=== PATIENT | male | born 1945 | race Caucasian/White ===

== ENCOUNTER 2017-08-18 23:16 | Emergency (ER) | payer MEDICARE, MEDICAID ==
[2017-08-19 01:26] VITALS: BP 121/68
--- NOTE | 2017-08-19 02:43 | ED ---
Shivani Redd Emily, scribed for Adonay Winslow MD on 08/18/17 at 2348 . Substance Abuse/Use - HPI Summary HPI Summary: This patient is a 20 year old F presenting to [facility] accompanied by friend with a chief complaint of LUQ abd pain radiating to left shoulder that began 2 days ago. The patient rates the pain 7/10 in severity. Symptoms aggravated by nothing. Symptoms alleviated by nothing. Patient reports SOB and slight cough. Patient denies fever and chills. - History Of Current Complaint Stated Complaint: ETOH Time Seen by Provider: 08/18/17 23:32 Hx Obtained From: Patient Ingestion History: Type/Name Of Drug - ETOH intoxication Overdose Characteristics: Oral Aggravating Factor(s): Nothing Alleviating Factor(s): Nothing - Allergies/Home Medications Allergies/Adverse Reactions: Allergies Allergy/AdvReac Type Severity Reaction Status Date / Time bupropion [From Wellbutrin] Allergy Unknown Verified 08/18/17 23:46 Reaction Details Home Medications: Home Medications Lisinopril 2.5 mg PO DAILY 08/18/17 [History Confirmed 08/19/17] Metformin HCl 500 mg PO BID 08/18/17 [History Confirmed 08/18/17] Incruse Ellipta 62.5 mcg NEB DAILY 08/19/17 [History Confirmed 08/19/17] PMH/Surg Hx/FS Hx/Imm Hx Previously Healthy: No Endocrine/Hematology History: Reports: Hx Diabetes - TYPE 2 Denies: Hx Anticoagulant Therapy, Hx Blood Disorders, Hx Blood Transfusions, Hx Bone Marrow Disease, Hx Systemic Lupus Erythematosus, Hx Sickle Cell Disease , Hx Thyroid Disease, Hx Anemia, Hx Unexplained Bleeding, Other Endocrine/ Hematological Disorders Cardiovascular History: Reports: Hx Hypercholesterolemia - DYSLIPIDEMIA, Hx Hypertension, Hx Syncope, 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/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 Denies: Hx Aneurysm, Hx Angina, Hx Angioplasty, Hx Auto Implanted Cardiovert Defib, Hx Cardiac Arrest, Hx Cardiomegaly, Hx Congenital Heart Disease, Hx Congestive Heart Failure, Hx Coronary Artery Disease, Hx Deep Vein Thrombosis, Hx Embolism, Hx Hypotension, Hx Pacemaker/ICD, Hx Peripheral Vascular Disease, Hx Rheumatic Fever, Hx Valvular Heart Disease GI History: Reports: Hx Gastroesophageal Reflux Disease, Other GI Disorders - CHRONIC CONSTIPATION Denies: Hx Cirrhosis, Hx Crohn's Disease, Hx Diverticulosis, Hx Gall Bladder Disease, Hx Gastrointestinal Bleed, Hx Hiatal Hernia, Hx Irritable Bowel, Hx Jaundice, Hx Obstructive Bowel, Hx Ileostomy, Hx Pyloric Stenosis, Hx Ulcer History: Reports: Hx Benign Prostatic Hyperplasia Denies: Hx Acute Renal Failure, Hx Chronic Renal Failure, Hx Dialysis, Hx Kidney Infection, Hx Kidney Stones, Other Problems/Disorders Musculoskeletal History: Reports: Hx Arthritis, Hx Back Problems - SPINAL CORD INJURY, Hx Orthopedic Injury - TKA, Hx Osteoporosis, Other Musculoskeletal History - BELLS PALSY Denies: Hx Bursitis, Hx Congenital Bone Abnormalities, Hx Fibromyalgia, Hx Gout, Hx Scoliosis, Hx Tendonitis Sensory History: Reports: Hx Contacts or Glasses - reading glasses, Hx Vision Problem Denies: Hx Eye Injury, Hx Eye Prosthesis, Hx Glaucoma, Hx Macular Degeneration, Other Sensory Impairments Opthamlomology History: Reports: Hx Contacts or Glasses - reading glasses, Hx Vision Problem Denies: Hx Eye Injury, Hx Eye Prosthesis, Hx Glaucoma, Hx Macular Degeneration, Other Sensory Impairments Neurological History: Reports: Hx Nerve Disease, Hx Spinal Cord Injury, Other Neuro Impairments/Disorders - BELLS PALSY, COGNATIVE DISORDER Denies: Hx Dementia, Hx Developmental Delay, Hx Headaches, Hx Migraine, Hx Seizures, Hx Transient Ischemic Attacks (TIA) Psychiatric History: Reports: Hx Depression, Hx Schizophrenia - PARANOID, Hx of Violent Episodes Against Others, Hx Substance Abuse, Other Psychiatric Issues/ Disorders - COGNATIVE DISORDER Denies: Hx Anxiety, Hx Attention Deficit Hyperactivity Disorder, Hx Eating Disorder, Hx Panic Disorder, Hx Post Traumatic Stress Disorder, Hx Inpatient Treatment, Hx Community Mental Health Tx, Hx Bipolar Disorder, Hx Suicide Attempt - Surgical History Surgery Procedure, Year, and Place: CATARACTS, TOTAL LEFT KNEE REPLACEMENT, LUMBAR SURGERY Hx Anesthesia Reactions: No Infectious Disease History: Denies: Hx Clostridium Difficile, Hx Hepatitis, Hx Human Immunodeficiency Virus (HIV), Hx of Known/Suspected MRSA, Hx Shingles, Hx Tuberculosis, Hx Known/ Suspected VRE, Hx Known/Suspected VRSA, History Other Infectious Disease - Family History Known Family History: Positive: Unknown Family History: Pt is a poor historian. - Social History Occupation: Retired Lives: Assisted Living Alcohol Use: Daily Substance Use Type: Reports: Marijuana Smoking Status (MU): Current Every Day Smoker Review of Systems Positive: Other - ETOH intoxication Gastrointestinal: Negative All Other Systems Reviewed And Are Negative: Yes Physical Exam - Summary Physical Exam Summary: Appearance: Well appearing, no pain distress Skin: warm, dry, reflects adequate perfusion, small abrasion to right knee, abrasion to lateral L eye Head/face: normal Eyes: EOMI, AMANDA ENT: normal Neck: supple, non-tender Respiratory: CTA, breath sounds present Cardiovascular: RRR, pulses symmetrical Abdomen: non-tender, soft Bowel Sounds: present Musculoskeletal: normal, strength/ROM intact Neuro: normal, sensory motor intact, A&Ox3 Triage Information Reviewed: Yes Vital Signs On Initial Exam: Initial Vitals Pulse Resp BP Pulse Ox 78 30 117/53 90 08/18/17 23:33 08/18/17 23:33 08/18/17 23:33 08/18/17 23:33 Vital Signs Reviewed: Yes Diagnostics - Vital Signs Vital Signs Temp Pulse Resp BP Pulse Ox 08/19/17 01:04 78 22 121/68 90 08/19/17 01:00 78 22 89 08/19/17 00:34 75 21 146/76 89 08/19/17 00:30 75 18 121/60 08/19/17 00:03 73 30 121/60 89 08/19/17 00:00 72 31 89 08/18/17 23:46 76 27 117/53 89 08/18/17 23:43 97.6 F 78 17 117/53 95 08/18/17 23:33 78 30 117/53 90 - Laboratory Lab Results: Lab Results 08/19/17 Range/Units 01:30 Serum Alcohol 49 H (<10) mg/dL Lab Statement: Any lab studies that have been ordered have been reviewed, and results considered in the medical decision making process. - CT Head CT CT Interpretation Completed By: Radiologist - Head CT reveals, per radiologist, normal head. ED physician has reviewed this radiology report. Re-Evaluation - Re-Evaluation First Eval Re-Evaluation Time: 01:25 Change: Improved Comment: Pt is up and walking. Stable Course/Dx - Course Course Of Treatment: Patient on psychiatric meds and also drank tonight. He is able to hold a conversation and admits that he drinks beers. He was allowed to sober for some time and then was up and walking. His head with CT given there is a small abrasion. This was negative. His EtOH was drawn and was found to be 49. He was discharged back to [facility] living. - Diagnoses Provider Diagnoses: Alcohol ingestion, Schizophrenia Discharge - Sign-Out/Discharge Documenting (check all that apply): Discharge/Admit/Transfer - Discharge Plan Condition: Improved Disposition: HOME Patient Education Materials: Alcohol Intoxication (ED) Referrals: Azar Salomon MD [Primary Care Provider] - Additional Instructions: Do not drink alcohol with your medications. Never drink to excess. Return if worse, new symptoms or other concerns. - Billing Disposition and Condition Condition: IMPROVED Disposition: HOME The documentation as recorded by the Shivani merrill Emily accurately reflects the service I personally performed and the decisions made by me, Adonay Winslow MD.
--- NOTE | 2017-08-19 08:48 | RAD ---
Indication: Alcohol use; head injury. Comparison: February 11, 2016 CT. Technique: Noncontrast CT vertex of skull through foramen magnum. Report: The sulci, ventricles, and basal cisterns are normal for age. Uribe matter white matter differentiation is preserved without evidence for edema. No intra or extra axial hemorrhage is detected. Unremarkable visualized orbital contents. Negative for calvarial or skull base fracture. The visualized paranasal sinuses and mastoid air spaces are clear. Minimal RIGHT para midline occipital region scalp edema or scarring is unchanged from the 2016 exam without concern. IMPRESSION: Negative unenhanced head CT.
== END 2017-08-19 03:16 | disposition home or self-care (01) ==
LOC: ED 23:16
DX: F10.129 Alcohol abuse with intoxication, unspecified (principal); E78.00 Pure hypercholesterolemia, unspecified; E78.5 Hyperlipidemia, unspecified; I10 Essential (primary) hypertension; K21.9 Gastro-esophageal reflux disease without esophagitis; E11.9 Type 2 diabetes mellitus without complications; Z79.84 Long term (current) use of oral hypoglycemic drugs; N40.0 Benign prostatic hyperplasia without lower urinary tract symptoms; F20.0 Paranoid schizophrenia; F17.200 Nicotine dependence, unspecified, uncomplicated
CPT/HCPCS: 36415; 70450; 80320; 99283; G0480

== ENCOUNTER 2017-10-05 12:51 | Inpatient (IN) | payer MEDICARE, MEDICAID ==
[2017-10-05] MEDS ORDERED: NS 0.9% 1000 ML*IV.FLUID IV ONE (13:08)
[2017-10-05] MEDS ORDERED: Levofloxacin 750 MG IVPREMIX(* 750 MG/150 ML BAG IVPB ONE (13:16)
[2017-10-05] MEDS ORDERED: Piperacillin/Tazobac ADVAN(*) 3.375 GM in NS 0.9% 100 ML* 100 ML IVPB ONE (13:16)
[2017-10-05] MEDS ORDERED: Piperacillin/Tazobac (*) 3.375 GM BAG ONE (13:27)
[2017-10-05 13:45] LABS: INR 1.06 (0.77-1.02)
[2017-10-05 13:51] LABS: EGFR Non-African American 52.1 (>60)
[2017-10-05 13:54] LABS: ABS Basophils 0 10^3/ul (0-0.2); ABS Eosinophils 0 10^3/ul (0-0.6); ABS Lymphocytes 0.3 10^3/ul (1.0-4.8); ABS Monocytes 0.5 10^3/ul (0-0.8); ABS Neutrophils 10.7 10^3/ul (1.5-7.7); ABS Nucleated RBC 0 10^3/ul; Eosinophil % 0 % (0-6); Hematocrit 35 % (42-52); Hemoglobin 11.2 g/dl (14.0-18.0); Lymphocyte % 2.7 % (25-47); Mean Corpuscular HGB Conc 32 g/dl (31-36); Mean Corpuscular Hemoglobin 22 pg (27-31); Mean Corpuscular Volume 70 fL (80-94); Mean Platelet Volume 7.8 um3 (7.4-10.4); Nucleated Red Blood Cells % 0; Platelet Count 198 10^3/ul (150-450); Red Blood Count 5.04 10^6/ul (4.00-5.40); Red Cell Distribution Width 20 % (10.5-15); White Blood Count 11.5 10^3/ul (3.5-10.8)
[2017-10-05 15:26] LABS: Urine Appearance Turbid; Urine Blood 1+ (Negative); Urine Color Amber; Urine Ketones Trace (Negative); Urine Protein 2+(100 mg/dL) (Negative); Urine Specific Gravity 1.017 (1.010-1.030); Urine Urobilinogen Negative (Negative)
--- NOTE | 2017-10-05 15:47 | RAD ---
INDICATION: Short of breath. Fever COMPARISON: May 04, 2016 TECHNIQUE: PA and lateral dual-energy views were obtained. FINDINGS: Bones/Soft Tissues: There are no acute bony findings. Cardiomediastinal: The cardiomediastinal silhouette is normal. Lungs: There is no focal consolidation but there is an interval increase in interstitial markings which may reflect interstitial edema or an early interstitial infiltrate. Suggest follow-up as indicated. There is hyperinflation. Pleura: There are no pleural effusions. Other: None IMPRESSION: INTERVAL INCREASE IN INTERSTITIAL MARKINGS. CONSIDER INTERSTITIAL EDEMA. SUGGEST FOLLOW-UP.
[2017-10-05] MEDS ORDERED: Albuterol 2.5 MG/3 ML NEB.SOL* (0.083%) INH PRN (16:53)
[2017-10-05] MEDS ORDERED: Al Hydrox/Mg Hydrox/Simet LIQ* 30 ML UDC PO PRN (16:53)
[2017-10-05] MEDS ORDERED: NS 0.9% 1000 ML* 1,000 ML IV SCH (17:00)
[2017-10-05] MEDS ORDERED: Ipratropium 0.5MG/2.5ML NEB* 0.5 MG/2.5 ML NEB.SOLN INH PRN (17:01)
[2017-10-05] MEDS ORDERED: NS 0.9% 1000 ML* 1,000 ML IV ONE (17:01)
[2017-10-05] MEDS ORDERED: Dextrose 50% Syringe 50 ML* 25 GM/50 ML SYRINGE IV PUSH PRN (17:08)
[2017-10-05] MEDS: cefTRIAXone(*) 1 GM in NS 0.9% 50 ML* 50 ML IVPB SCH (18:18)
--- NOTE | 2017-10-05 18:28 | ED ---
Dalton Redd Stephanie, scribed for Adonay Winslow MD on 10/05/17 at 1330 . Complex/Multi-Sys Presentation - HPI Summary HPI Summary: The pt is a 71 y/o M BIBA to the ED with c/o SOB that began a few days ago. Symptoms include cough, abd pain, L knee pain, general weakness, WHITLEY and decreased appetite. He denies CP. - History Of Current Complaint Chief Complaint: EDShortnessOfBreath Time Seen by Provider: 10/05/17 13:06 Hx Obtained From: Patient Onset/Duration: Gradual Onset, Lasting Days, Still Present Timing: Constant Severity Currently: Mild Associated Signs And Symptoms: Positive: Weakness, Headache, SOB, Cough, Abdominal Pain, Decreased Oral Intake. Negative: Chest Pain - Allergies/Home Medications Allergies/Adverse Reactions: Allergies Allergy/AdvReac Type Severity Reaction Status Date / Time bupropion [From Wellbutrin] Allergy Unknown Verified 08/18/17 23:46 Reaction Details Home Medications: Home Medications Aspirin EC TAB* [Ecotrin EC Low Dose 81 MG*] 81 mg PO DAILY 10/05/17 [History Confirmed 10/05/17] Atorvastatin* [Lipitor 10 MG*] 10 mg PO BEDTIME 10/05/17 [History Confirmed ] Docusate CAP* [Colace Cap*] 100 mg PO DAILY 10/05/17 [History Confirmed 10/05/17 ] Gabapentin CAP(*) [Neurontin 300 CAP(*)] 300 mg PO TID 10/05/17 [History Confirmed 10/05/17] Ipratropium 0.5MG/2.5ML NEB* [Atrovent 0.5 MG NEB.RUFINO*] 0.5 mg INH Q12H PRN [History Confirmed 10/05/17] Lidocaine PATCH 5%* [Lidoderm 5% Patch*] 1 patch TRANSDERM DAILY 10/05/17 [ History Confirmed 10/05/17] Lisinopril TAB* [Prinivil TAB*] 2.5 mg PO DAILY 10/05/17 [History Confirmed ] LoraTADine TAB(NF) [Claritin 10 MG TAB(NF)] 10 mg PO DAILY 10/05/17 [History Confirmed 10/05/17] Meloxicam(NF) [Mobic(NF)] 15 mg PO DAILY 10/05/17 [History Confirmed 10/05/17] Omeprazole CAP* [Prilosec CAP* 20 MG] 20 mg PO QAM 10/05/17 [History Confirmed 10/05/17] QUEtiapine TAB* [Seroquel 300 MG TAB*] 400 mg PO BEDTIME 10/05/17 [History Confirmed 10/05/17] Senna TAB* [Senokot TAB*] 2 tab PO DAILY 10/05/17 [History Confirmed 10/05/17] Umeclidin 62.5 MDI(NF) [Incruse ELLIPTA MDI (NF)] 1 inh INH DAILY 10/05/17 [ History Confirmed 10/05/17] busPIRone TAB* [Buspar TAB *] 15 mg PO TID 10/05/17 [History Confirmed 10/05/17] hydrOXYzine HCL TAB* [Atarax TAB 50 MG *] 100 mg PO BEDTIME 10/05/17 [History Confirmed 10/05/17] metFORMIN* [Glucophage 500 MG TAB *] 500 mg PO BID 10/05/17 [History Confirmed 10/05/17] risperiDONE TAB* [RisperDAL*] 1 mg PO BID 10/05/17 [History Confirmed 10/05/17] PMH/Surg Hx/FS Hx/Imm Hx Endocrine/Hematology History: Reports: Hx Diabetes - TYPE 2 Denies: Hx Anticoagulant Therapy, Hx Blood Disorders, Hx Blood Transfusions, Hx Bone Marrow Disease, Hx Systemic Lupus Erythematosus, Hx Sickle Cell Disease , Hx Thyroid Disease, Hx Anemia, Hx Unexplained Bleeding, Other Endocrine/ Hematological Disorders Cardiovascular History: Reports: Hx Hypercholesterolemia - DYSLIPIDEMIA, Hx Hypertension, Hx Syncope, 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 Denies: Hx Aneurysm, Hx Angina, Hx Angioplasty, Hx Auto Implanted Cardiovert Defib, Hx Cardiac Arrest, Hx Cardiomegaly, Hx Congenital Heart Disease, Hx Congestive Heart Failure, Hx Coronary Artery Disease, Hx Deep Vein Thrombosis, Hx Embolism, Hx Hypotension, Hx Pacemaker/ICD, Hx Peripheral Vascular Disease, Hx Rheumatic Fever, Hx Valvular Heart Disease GI History: Reports: Hx Gastroesophageal Reflux Disease, Other GI Disorders - CHRONIC CONSTIPATION Denies: Hx Cirrhosis, Hx Crohn's Disease, Hx Diverticulosis, Hx Gall Bladder Disease, Hx Gastrointestinal Bleed, Hx Hiatal Hernia, Hx Irritable Bowel, Hx Jaundice, Hx Obstructive Bowel, Hx Ileostomy, Hx Pyloric Stenosis, Hx Ulcer History: Reports: Hx Benign Prostatic Hyperplasia Denies: Hx Acute Renal Failure, Hx Chronic Renal Failure, Hx Dialysis, Hx Kidney Infection, Hx Kidney Stones, Other Problems/Disorders Musculoskeletal History: Reports: Hx Arthritis, Hx Back Problems - SPINAL CORD INJURY, Hx Orthopedic Injury - TKA, Hx Osteoporosis, Other Musculoskeletal History - BELLS PALSY Denies: Hx Bursitis, Hx Congenital Bone Abnormalities, Hx Fibromyalgia, Hx Gout, Hx Scoliosis, Hx Tendonitis Sensory History: Reports: Hx Contacts or Glasses - reading glasses, Hx Vision Problem Denies: Hx Eye Injury, Hx Eye Prosthesis, Hx Glaucoma, Hx Macular Degeneration, Other Sensory Impairments Opthamlomology History: Reports: Hx Contacts or Glasses - reading glasses, Hx Vision Problem Denies: Hx Eye Injury, Hx Eye Prosthesis, Hx Glaucoma, Hx Macular Degeneration, Other Sensory Impairments Neurological History: Reports: Hx Nerve Disease, Hx Spinal Cord Injury, Other Neuro Impairments/Disorders - BELLS PALSY, COGNATIVE DISORDER Denies: Hx Dementia, Hx Developmental Delay, Hx Headaches, Hx Migraine, Hx Seizures, Hx Transient Ischemic Attacks (TIA) Psychiatric History: Reports: Hx Depression, Hx Schizophrenia - PARANOID, Hx of Violent Episodes Against Others, Hx Substance Abuse, Other Psychiatric Issues/ Disorders - COGNATIVE DISORDER Denies: Hx Anxiety, Hx Attention Deficit Hyperactivity Disorder, Hx Eating Disorder, Hx Panic Disorder, Hx Post Traumatic Stress Disorder, Hx Inpatient Treatment, Hx Community Mental Health Tx, Hx Bipolar Disorder, Hx Suicide Attempt - Surgical History Surgery Procedure, Year, and Place: CATARACTS, TOTAL LEFT KNEE REPLACEMENT, LUMBAR SURGERY Hx Anesthesia Reactions: No Infectious Disease History: No Infectious Disease History: Denies: Hx Clostridium Difficile, Hx Hepatitis, Hx Human Immunodeficiency Virus (HIV), Hx of Known/Suspected MRSA, Hx Shingles, Hx Tuberculosis, Hx Known/ Suspected VRE, Hx Known/Suspected VRSA, History Other Infectious Disease, Traveled Outside the [place] in Last 30 Days - Family History Known Family History: Positive: Unknown Negative: Renal Disease Family History: Pt is a poor historian. - Social History Occupation: Retired Lives: Alone Alcohol Use: Daily Hx Substance Use: Yes Substance Use Type: Reports: Marijuana Hx Tobacco Use: Yes Smoking Status (MU): Current Every Day Smoker Have You Smoked in the Last Year: Yes Review of Systems Positive: Fever, Other - decreased appetite Negative: Chest Pain Positive: Shortness Of Breath, Cough Positive: Abdominal Pain Positive: Other - L knee pain Positive: Headache, Weakness All Other Systems Reviewed And Are Negative: Yes Physical Exam - Summary Physical Exam Summary: Appearance: Well appearing, no pain distress, Purple nail wolof on both hands Skin: warm, dry, soft umbilical hernia, L knee has replacement scar Head/face: normal Eyes: EOMI, AMANDA ENT: mucous membranes a little dry Neck: supple, non-tender Respiratory:breath sounds present, course on L base, diminished, no wheezes Cardiovascular: heart tachycardic but regular, pulses symmetrical Abdomen: non-tender, soft, Soft umbilical hernia Bowel Sounds: present Musculoskeletal: strength/ROM intact, Mild increased warmth in L knee Neuro: normal, sensory motor intact, A&Ox3 Triage Information Reviewed: Yes Vital Signs On Initial Exam: Initial Vitals Temp Pulse Resp BP Pulse Ox 102.4 F 104 27 123/65 98 10/05/17 12:57 10/05/17 12:57 10/05/17 12:57 10/05/17 12:57 10/05/17 12:57 Vital Signs Reviewed: Yes Diagnostics - Vital Signs Vital Signs Temp Pulse Resp BP Pulse Ox 10/05/17 12:57 102.4 F 104 27 123/65 98 - Laboratory Lab Results: Lab Results 10/05/17 10/05/17 10/05/17 Range/Units 13:19 13:19 13:19 WBC 11.5 H (3.5-10.8) 10^3/ul RBC 5.04 (4.00-5.40) 10^6/ul Hgb 11.2 L (14.0-18.0) g/dl Hct 35 L (42-52) % MCV 70 L (80-94) fL MCH 22 L (27-31) pg MCHC 32 (31-36) g/dl RDW 20 H (10.5-15) % Plt Count 198 (150-450) 10^3/ul MPV 7.8 (7.4-10.4) um3 Neut % (Auto) 92.5 H (38-83) % Lymph % (Auto) 2.7 L (25-47) % [place] % (Auto) 4.4 (0-7) % Eos % (Auto) 0 (0-6) % Baso % (Auto) 0.4 (0-2) % Absolute Neuts (auto) 10.7 H (1.5-7.7) 10^3/ul Absolute Lymphs (auto) 0.3 L (1.0-4.8) 10^3/ul Absolute Monos (auto) 0.5 (0-0.8) 10^3/ul Absolute Eos (auto) 0 (0-0.6) 10^3/ul Absolute Basos (auto) 0 (0-0.2) 10^3/ul Absolute Nucleated RBC 0 10^3/ul Nucleated RBC % 0 INR (Anticoag Therapy) 1.06 H (0.77-1.02) APTT 27.2 (26.0-36.3) seconds Sodium 136 (135-145) mmol/L Potassium 3.9 (3.5-5.0) mmol/L Chloride 104 (101-111) mmol/L Carbon Dioxide 22 (22-32) mmol/L Anion Gap 10 (2-11) mmol/L BUN 14 (6-24) mg/dL Creatinine 1.35 H (0.67-1.17) mg/dL Est GFR ( Amer) 67.0 (>60) Est GFR (Non-Af Amer) 52.1 (>60) BUN/Creatinine Ratio 10.4 (8-20) Glucose 160 H (70-100) mg/dL Lactic Acid (0.5-2.0) mmol/L Calcium 9.1 (8.6-10.3) mg/dL Total Bilirubin 0.40 (0.2-1.0) mg/dL AST 13 (13-39) U/L ALT 9 (7-52) U/L Alkaline Phosphatase 64 (34-104) U/L Troponin I 0.03 (<0.04) ng/mL C-Reactive Protein 72.73 H (< 5.00) mg/L B-Natriuretic Peptide ( - 100) pg/mL Total Protein 6.9 (6.4-8.9) g/dL Albumin 3.8 (3.2-5.2) g/dL Globulin 3.1 (2-4) g/dL Albumin/Globulin Ratio 1.2 (1-3) Urine Color Urine Appearance Urine pH (5-9) Ur Specific [place] (1.010-1.030) Urine Protein (Negative) Urine Ketones (Negative) Urine Blood (Negative) Urine Nitrate (Negative) Urine Bilirubin (Negative) Urine Urobilinogen (Negative) Ur Leukocyte Esterase (Negative) Urine WBC (Auto) (Absent) Urine RBC (Auto) (Absent) Urine Bacteria (Absent) Urine Glucose (Negative) Urine Ascorbic Acid (Negative) 10/05/17 10/05/17 10/05/17 Range/Units 13:19 13:19 15:08 WBC (3.5-10.8) 10^3/ul RBC (4.00-5.40) 10^6/ul Hgb (14.0-18.0) g/dl Hct (42-52) % MCV (80-94) fL MCH (27-31) pg MCHC (31-36) g/dl RDW (10.5-15) % Plt Count (150-450) 10^3/ul MPV (7.4-10.4) um3 Neut % (Auto) (38-83) % Lymph % (Auto) (25-47) % [place] % (Auto) (0-7) % Eos % (Auto) (0-6) % Baso % (Auto) (0-2) % Absolute Neuts (auto) (1.5-7.7) 10^3/ul Absolute Lymphs (auto) (1.0-4.8) 10^3/ul Absolute Monos (auto) (0-0.8) 10^3/ul Absolute Eos (auto) (0-0.6) 10^3/ul Absolute Basos (auto) (0-0.2) 10^3/ul Absolute Nucleated RBC 10^3/ul Nucleated RBC % INR (Anticoag Therapy) (0.77-1.02) APTT (26.0-36.3) seconds Sodium (135-145) mmol/L Potassium (3.5-5.0) mmol/L Chloride (101-111) mmol/L Carbon Dioxide (22-32) mmol/L Anion Gap (2-11) mmol/L BUN (6-24) mg/dL Creatinine (0.67-1.17) mg/dL Est GFR ( Amer) (>60) Est GFR (Non-Af Amer) (>60) BUN/Creatinine Ratio (8-20) Glucose (70-100) mg/dL Lactic Acid 2.3 H* (0.5-2.0) mmol/L Calcium (8.6-10.3) mg/dL Total Bilirubin (0.2-1.0) mg/dL AST (13-39) U/L ALT (7-52) U/L Alkaline Phosphatase (34-104) U/L Troponin I (<0.04) ng/mL C-Reactive Protein (< 5.00) mg/L B-Natriuretic Peptide 30 ( - 100) pg/mL Total Protein (6.4-8.9) g/dL Albumin (3.2-5.2) g/dL Globulin (2-4) g/dL Albumin/Globulin Ratio (1-3) Urine Color [place] Urine Appearance Turbid Urine pH 6.0 (5-9) Ur Specific [place] 1.017 (1.010-1.030) Urine Protein 2+(100 mg/dl) A (Negative) Urine Ketones Trace A (Negative) Urine Blood 1+ A (Negative) Urine Nitrate Negative (Negative) Urine Bilirubin Negative (Negative) Urine Urobilinogen Negative (Negative) Ur Leukocyte Esterase 2+ A (Negative) Urine WBC (Auto) 3+(>20/hpf) A (Absent) Urine RBC (Auto) 3+(>10/hpf) A (Absent) Urine Bacteria Absent (Absent) Urine Glucose Negative (Negative) Urine Ascorbic Acid * A (Negative) Result Diagrams: 10/05/17 13:19 10/05/17 13:19 Lab Statement: Any lab studies that have been ordered have been reviewed, and results considered in the medical decision making process. - Radiology CXR Xray Interpretation: Positive (See Comments) Radiology Interpretation Completed By: Radiologist - INTERVAL INCREASE IN INTERSTITIAL MARKINGS. CONSIDER INTERSTITIAL EDEMA. SUGGEST FOLLOW-UP. ED physician has reviewed this report. - EKG 13:22 Cardiac Rate: NL EKG Rhythm: Sinus Rhythm - 98 BPM EKG Interpretation: single PVC, nml axis, nonspecific ST. Complex Multi-Symp Course/Dx Course Of Treatment: Patient presents with Sirs and likely infection. Given IV fluids and antibiotics presumptively. Urine appears dirty but his primary pathology but based on exam and complaint is pulmonary. There is interstitial edema versus infiltrate on x-ray. This is likely infiltrate. Discussed the case with the hospitalist who came and evaluated in the ER for admission. The patient is improving with fever treatment, fluids and antibiotics. - Diagnoses Differential Diagnoses/HQI/PQRI: Metabolic Abnormality, Urinary Tract Infection , Other - Pneumonia, sepsis, severe sepsis or septic shock Provider Diagnoses: Interstitial pneumonia, Severe sepsis - Physician Notifications Discussed Care Of Patient With: Shellie Bass Time Discussed With Above Provider: 16:28 Instructed by Provider To: Admit As Inpatient - Critical Care Time Critical Care Time: 30-74 min - Critical care time is exclusive of separately billable procedures Discharge - Sign-Out/Discharge Documenting (check all that apply): Discharge/Admit/Transfer - Admit - Discharge Plan Condition: Stable Disposition: ADMITTED TO [facility] - Billing Disposition and Condition Condition: STABLE Disposition: Admitted to [facility] The documentation as recorded by the Dalton merrill Stephanie accurately reflects the service I personally performed and the decisions made by Nayla dowell Kirk, MD.
[2017-10-05] MEDS ORDERED: Insulin LISPRO* 1 UNITS UNIT SUBCUT ONE (19:07)
[2017-10-05] MEDS: Insulin LISPRO* 1 UNITS UNIT SUBCUT SCH (20:07)
[2017-10-05] MEDS: Azithromycin IV(*) 500 MG in NS 0.9% 250 ML* 250 ML IVPB SCH (20:08)
[2017-10-05] MEDS: Atorvastatin* 10 MG TAB PO SCH (21:03)
[2017-10-05] MEDS: Gabapentin CAP(*) 300 MG PO SCH (21:03)
[2017-10-05] MEDS: hydrOXYzine HCL TAB* 50 MG PO SCH (21:03)
[2017-10-05] MEDS: Heparin VIAL(*) 5000 UNITS/ML VIAL (FIVE THOUSAND) SUBCUT SCH (21:04)
[2017-10-05] MEDS: busPIRone TAB* 15 MG PO SCH (21:04)
[2017-10-05] MEDS: QUEtiapine TAB* 100 MG PO SCH (21:04)
[2017-10-05] MEDS: risperiDONE TAB* 1 MG PO SCH (21:04)
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
[2017-10-05] MEDS: Acetaminophen TAB* 325 MG PO PRN (23:56)
[2017-10-06] MEDS ORDERED: NS 0.9% 1000 ML* 1,000 ML IV ONE (00:19)
[2017-10-06] MEDS: Heparin VIAL(*) 5000 UNITS/ML VIAL (FIVE THOUSAND) SUBCUT SCH ×3 (05:42→21:06)
[2017-10-06] MEDS: Acetaminophen TAB* 325 MG PO PRN ×3 (05:55→20:04)
[2017-10-06 06:52] LABS: ABS Basophils 0 10^3/ul (0-0.2); ABS Eosinophils 0 10^3/ul (0-0.6); ABS Lymphocytes 0.6 10^3/ul (1.0-4.8); ABS Monocytes 0.6 10^3/ul (0-0.8); ABS Neutrophils 6.8 10^3/ul (1.5-7.7); ABS Nucleated RBC 0 10^3/ul; Eosinophil % 0 % (0-6); Hematocrit 29 % (42-52); Hemoglobin 9.4 g/dl (14.0-18.0); Lymphocyte % 7.6 % (25-47); Mean Corpuscular HGB Conc 32 g/dl (31-36); Mean Corpuscular Hemoglobin 23 pg (27-31); Mean Corpuscular Volume 71 fL (80-94); Mean Platelet Volume 7.7 um3 (7.4-10.4); Nucleated Red Blood Cells % 0; Platelet Count 148 10^3/ul (150-450); Red Blood Count 4.14 10^6/ul (4.00-5.40); Red Cell Distribution Width 21 % (10.5-15)
[2017-10-06 06:59] LABS: EGFR Non-African American 58.6 (>60)
[2017-10-06] MEDS ORDERED: Insulin LISPRO* 1 UNITS UNIT SUBCUT SCH (07:30)
[2017-10-06] MEDS: Omeprazole CAP* 20 MG PO SCH (07:52)
[2017-10-06] MEDS: Insulin LISPRO* 1 UNITS UNIT SUBCUT SCH ×3 (08:20→17:00)
[2017-10-06] MEDS: Lidocaine PATCH 5%* 1 PATCH TRANSDERM SCH (08:43)
[2017-10-06] MEDS: Gabapentin CAP(*) 300 MG PO SCH ×3 (08:44→20:04)
[2017-10-06] MEDS: Senna TAB PO SCH (08:44)
[2017-10-06] MEDS: Docusate CAP* 100 MG PO SCH (08:44)
[2017-10-06] MEDS: Aspirin EC TAB* 81 MG TAB.EC PO SCH (08:45)
[2017-10-06] MEDS: busPIRone TAB* 15 MG PO SCH ×3 (08:45→20:04)
[2017-10-06] MEDS: risperiDONE TAB* 1 MG PO SCH ×2 (08:45→20:03)
[2017-10-06] MEDS: Cetirizine* 10 MG TAB PO SCH (08:45)
[2017-10-06] MEDS ORDERED: Umeclidin 62.5 MDI(NF) 1 INH MDI INH SCH (09:00)
[2017-10-06] MEDS ORDERED: Calcium CHLORIDE 10% SYRINGE* 1 GM/10 ML ONE (11:12)
[2017-10-06] MEDS: Calcium CHLORIDE 10% SYRINGE* 0.68 GM in D5W 100 ML BAG* 100 ML IV ONE ×3 (11:25→11:58)
--- NOTE | 2017-10-06 15:51 | PN ---
Subjective Date of Service: 10/06/17 Interval History: Pt seen and examined. Meds and labs reviewed. Discussed pts case with pts brother-in law, Lebron Steven who is a PCP in [place] and of pts sister who is standing as proxy for sister who is in [place]. Pts sister instructed her to inquire about her while she is out of state. Discussed case described below and Dr. Steven appeared satisfied with update regarding his brother in law at the end of our phone conversation. ROS: Denied WHITLEY/dizziness, F/C, N/V, CP, SOB, increased cough, sputum production , abd pain, diarrhea, constipation, dysuria, myalgias, arthralgias, throat pain , and new skin lesions. The rest of the 14 point ROS are unremarkable. PHYSICAL EXAM: GEN APPEARANCE: Awake, Oriented to both place and person, but not to time, not in acute distress HEENT: NC/AT, PERRLA, moist oral mucosa, (-) throat erythema NECK: Soft, supple, (-) cervical LAD, (-)JVD HEART: S1S2 WNL, RRR, No MRG CHEST: CTA, BL, GAE, No W/R/R ABD: Soft, ND/NT, NABS 4x Q EXT: No C/C/E SKIN: Warm to touch PSYCH: No active psychosis, hallucinations, depression, SI/HI Objective Active Medications: Acetaminophen (Tylenol Tab*) 650 mg PO Q4H PRN PRN Reason: FEVER/PAIN Last Admin: 10/06/17 11:36 Dose: 650 mg Al Hydrox/Mg Hydrox/Simethicone (Maalox Plus*) 30 ml PO Q6H PRN PRN Reason: INDIGESTION Albuterol (Ventolin 2.5 Mg/3 Ml Neb.Wendy*) 2.5 mg INH [id number] AWAKE PRN PRN Reason: sob/wheezing Aspirin (Aspirin Ec Tab*) 81 mg PO DAILY [facility] Last Admin: 10/06/17 08:45 Dose: 81 mg Atorvastatin Calcium (Lipitor*) 10 mg PO BEDTIME [facility] Last Admin: 10/05/17 21:03 Dose: 10 mg Buspirone HCl (Buspar Tab *) 15 mg PO TID [facility] Last Admin: 10/06/17 14:22 Dose: 15 mg Cetirizine HCl (Zyrtec*) 10 mg PO DAILY [facility] Last Admin: 10/06/17 08:45 Dose: 10 mg Dextrose (D50w Syringe 50 Ml*) 12.5 gm IV PUSH .FOR FS < 60 - SS PRN PRN Reason: FS < 60 Docusate Sodium (Colace Cap*) 100 mg PO DAILY [facility] Last Admin: 10/06/17 08:44 Dose: 100 mg Gabapentin (Neurontin Cap(*)) 300 mg PO TID [facility] Last Admin: 10/06/17 14:21 Dose: 300 mg Heparin Sodium (Porcine) (Heparin Vial(*)) 5,000 units SUBCUT Q8HR [facility] Last Admin: 10/06/17 14:23 Dose: 5,000 units Hydroxyzine HCl (Atarax Tab*) 100 mg PO BEDTIME [facility] Last Admin: 10/05/17 21:03 Dose: 100 mg Ceftriaxone Sodium 1 gm/ (Sodium Chloride) 50 mls @ 200 mls/hr IVPB Q24H [facility] Last Admin: 10/05/17 18:18 Dose: 200 mls/hr Azithromycin 500 mg/ Sodium (Chloride) 250 mls @ 250 mls/hr IVPB Q24H [facility] Last Admin: 10/05/17 20:08 Dose: 250 mls/hr Sodium Chloride (Ns 0.9% 1000 Ml*) 1,000 mls @ 75 mls/hr IV PER RATE [facility] Insulin Human Lispro (Humalog*) 0 units SUBCUT AC [facility] PRN Reason: Protocol Last Admin: 10/06/17 12:08 Dose: Not Given Ipratropium [place] (Atrovent 0.5 Mg Neb.Wendy*) 0.5 mg INH Q12H PRN PRN Reason: SOB/WHEEZING Lidocaine (Lidoderm 5% Patch*) 1 patch TRANSDERM DAILY [facility] Last Admin: 10/06/17 08:43 Dose: 1 patch Omeprazole (Prilosec Cap*) 20 mg PO DAILY@0730 [facility] Last Admin: 10/06/17 07:52 Dose: 20 mg Quetiapine Fumarate (Seroquel Tab*) 400 mg PO BEDTIME [facility] Last Admin: 10/05/17 21:04 Dose: 400 mg Risperidone (Risperdal*) 1 mg PO BID [facility] Last Admin: 10/06/17 08:45 Dose: 1 mg Senna (Senokot Tab*) 2 tab PO DAILY [facility] Last Admin: 10/06/17 08:44 Dose: 2 tab Umeclidinium [place] (Incruse Ellipta Mdi (Nf)) 1 inh INH DAILY [facility] Last Admin: 10/06/17 07:58 Dose: Not Given Vital Signs - 8 hr 10/06/17 10/06/17 12:34 14:21 Temperature 98.0 F Pulse Rate 72 Respiratory 20 16 Rate Blood Pressure 135/54 (mmHg) O2 Sat by Pulse 97 Oximetry Oxygen Devices in Use Now: Nasal Cannula Result Diagrams: 10/06/17 06:21 10/06/17 06:21 Additional Lab and Data: Lab Results 10/05/17 10/05/17 10/05/17 Range/Units 13:19 13:19 13:19 WBC 11.5 H (3.5-10.8) 10^3/ul RBC 5.04 (4.00-5.40) 10^6/ul Hgb 11.2 L (14.0-18.0) g/dl Hct 35 L (42-52) % MCV 70 L (80-94) fL MCH 22 L (27-31) pg MCHC 32 (31-36) g/dl RDW 20 H (10.5-15) % Plt Count 198 (150-450) 10^3/ul MPV 7.8 (7.4-10.4) um3 Neut % (Auto) 92.5 H (38-83) % Lymph % (Auto) 2.7 L (25-47) % [place] % (Auto) 4.4 (0-7) % Eos % (Auto) 0 (0-6) % Baso % (Auto) 0.4 (0-2) % Absolute Neuts (auto) 10.7 H (1.5-7.7) 10^3/ul Absolute Lymphs (auto) 0.3 L (1.0-4.8) 10^3/ul Absolute Monos (auto) 0.5 (0-0.8) 10^3/ul Absolute Eos (auto) 0 (0-0.6) 10^3/ul Absolute Basos (auto) 0 (0-0.2) 10^3/ul Absolute Nucleated RBC 0 10^3/ul Nucleated RBC % 0 INR (Anticoag Therapy) 1.06 H (0.77-1.02) APTT 27.2 (26.0-36.3) seconds Sodium 136 (135-145) mmol/L Potassium 3.9 (3.5-5.0) mmol/L Chloride 104 (101-111) mmol/L Carbon Dioxide 22 (22-32) mmol/L Anion Gap 10 (2-11) mmol/L BUN 14 (6-24) mg/dL Creatinine 1.35 H (0.67-1.17) mg/dL Est GFR ( Amer) 67.0 (>60) Est GFR (Non-Af Amer) 52.1 (>60) BUN/Creatinine Ratio 10.4 (8-20) Glucose 160 H (70-100) mg/dL Lactic Acid (0.5-2.0) mmol/L Calcium 9.1 (8.6-10.3) mg/dL Total Bilirubin 0.40 (0.2-1.0) mg/dL AST 13 (13-39) U/L ALT 9 (7-52) U/L Alkaline Phosphatase 64 (34-104) U/L Troponin I 0.03 (<0.04) ng/mL C-Reactive Protein 72.73 H (< 5.00) mg/L B-Natriuretic Peptide ( - 100) pg/mL Total Protein 6.9 (6.4-8.9) g/dL Albumin 3.8 (3.2-5.2) g/dL Globulin 3.1 (2-4) g/dL Albumin/Globulin Ratio 1.2 (1-3) Urine Color Urine Appearance Urine pH (5-9) Ur Specific [place] (1.010-1.030) Urine Protein (Negative) Urine Ketones (Negative) Urine Blood (Negative) Urine Nitrate (Negative) Urine Bilirubin (Negative) Urine Urobilinogen (Negative) Ur Leukocyte Esterase (Negative) Urine WBC (Auto) (Absent) Urine RBC (Auto) (Absent) Urine Bacteria (Absent) Urine Glucose (Negative) Urine Ascorbic Acid (Negative) 10/05/17 10/05/17 10/05/17 Range/Units 13:19 13:19 15:08 WBC (3.5-10.8) 10^3/ul RBC (4.00-5.40) 10^6/ul Hgb (14.0-18.0) g/dl Hct (42-52) % MCV (80-94) fL MCH (27-31) pg MCHC (31-36) g/dl RDW (10.5-15) % Plt Count (150-450) 10^3/ul MPV (7.4-10.4) um3 Neut % (Auto) (38-83) % Lymph % (Auto) (25-47) % [place] % (Auto) (0-7) % Eos % (Auto) (0-6) % Baso % (Auto) (0-2) % Absolute Neuts (auto) (1.5-7.7) 10^3/ul Absolute Lymphs (auto) (1.0-4.8) 10^3/ul Absolute Monos (auto) (0-0.8) 10^3/ul Absolute Eos (auto) (0-0.6) 10^3/ul Absolute Basos (auto) (0-0.2) 10^3/ul Absolute Nucleated RBC 10^3/ul Nucleated RBC % INR (Anticoag Therapy) (0.77-1.02) APTT (26.0-36.3) seconds Sodium (135-145) mmol/L Potassium (3.5-5.0) mmol/L Chloride (101-111) mmol/L Carbon Dioxide (22-32) mmol/L Anion Gap (2-11) mmol/L BUN (6-24) mg/dL Creatinine (0.67-1.17) mg/dL Est GFR ( Amer) (>60) Est GFR (Non-Af Amer) (>60) BUN/Creatinine Ratio (8-20) Glucose (70-100) mg/dL Lactic Acid 2.3 H* (0.5-2.0) mmol/L Calcium (8.6-10.3) mg/dL Total Bilirubin (0.2-1.0) mg/dL AST (13-39) U/L ALT (7-52) U/L Alkaline Phosphatase (34-104) U/L Troponin I (<0.04) ng/mL C-Reactive Protein (< 5.00) mg/L B-Natriuretic Peptide 30 ( - 100) pg/mL Total Protein (6.4-8.9) g/dL Albumin (3.2-5.2) g/dL Globulin (2-4) g/dL Albumin/Globulin Ratio (1-3) Urine Color [place] Urine Appearance Turbid Urine pH 6.0 (5-9) Ur Specific [place] 1.017 (1.010-1.030) Urine Protein 2+(100 mg/dl) A (Negative) Urine Ketones Trace A (Negative) Urine Blood 1+ A (Negative) Urine Nitrate Negative (Negative) Urine Bilirubin Negative (Negative) Urine Urobilinogen Negative (Negative) Ur Leukocyte Esterase 2+ A (Negative) Urine WBC (Auto) 3+(>20/hpf) A (Absent) Urine RBC (Auto) 3+(>10/hpf) A (Absent) Urine Bacteria Absent (Absent) Urine Glucose Negative (Negative) Urine Ascorbic Acid * A (Negative) Assess/Plan/Problems-Billing Assessment: - Patient Problems (1) Pneumonia Current Visit: Yes Status: Acute Code(s): J18.9 - PNEUMONIA, UNSPECIFIED ORGANISM SNOMED Code(s): 439901238 Comment: -Continue Rocephin and Azithromycin -Urine Ag (-) for Legionella and S. pneumo -Will continue to follow cultures (2) Lactic acidosis Current Visit: Yes Status: Acute Code(s): E87.2 - ACIDOSIS SNOMED Code(s) : 69669947 Comment: -Likely due to pts sepsis in addition to pt being on Metformin -Agree with holding Metformin (3) Hypocalcemia Current Visit: Yes Status: Acute Code(s): E83.51 - HYPOCALCEMIA SNOMED Code(s): 9255308 Comment: -Corrected -Continue watchful waiting (4) Diabetes 1.5, managed as type 2 Current Visit: Yes Status: Acute Code(s): E10.9 - TYPE 1 DIABETES MELLITUS WITHOUT COMPLICATIONS SNOMED Code(s): 524670787 Comment: -Well-controlled -Continue Insulin SS (5) ZHOU (acute kidney injury) Current Visit: Yes Status: Acute Code(s): N17.9 - ACUTE KIDNEY FAILURE, UNSPECIFIED SNOMED Code(s): 87290995 Comment: -Mild and improving -Likely due to mild sepsis (6) Schizophrenia Current Visit: Yes Status: Acute Code(s): F20.9 - SCHIZOPHRENIA, UNSPECIFIED SNOMED Code(s): 50812623 Comment: -Continue Quetiapine (7) Hyperlipidemia Current Visit: Yes Status: Acute Code(s): E78.5 - HYPERLIPIDEMIA, UNSPECIFIED SNOMED Code(s): 42991244 Comment: -Continue Atorvastatin (8) DVT prophylaxis Current Visit: Yes Status: Acute Code(s): ZGL7525 - SNOMED Code(s): 233010805 Comment: -Continue heparin SQ Status and Disposition: -For PT eval -As above -Lebron Holt (brother-in law; of pts HPAhis sister): cell: ; Office: [phone]
[2017-10-06] MEDS: Nicotine PATCH 14 MG/24 HR* PATCH TRANSDERM SCH (16:57)
[2017-10-06] MEDS: NS 0.9% 1000 ML* 1,000 ML IV SCH (17:03)
[2017-10-06] MEDS: cefTRIAXone(*) 1 GM in NS 0.9% 50 ML* 50 ML IVPB SCH (17:08)
[2017-10-06] MEDS: QUEtiapine TAB* 100 MG PO SCH (20:03)
[2017-10-06] MEDS: hydrOXYzine HCL TAB* 50 MG PO SCH (20:04)
[2017-10-06] MEDS: Azithromycin IV(*) 500 MG in NS 0.9% 250 ML* 250 ML IVPB SCH (20:04)
[2017-10-06] MEDS: Atorvastatin* 10 MG TAB PO SCH (20:04)
[2017-10-06] MEDS: Nicotine Patch Removal NOTE PATCH OFF SCH (20:08)
[2017-10-07] MEDS: Heparin VIAL(*) 5000 UNITS/ML VIAL (FIVE THOUSAND) SUBCUT SCH ×3 (05:27→22:04)
[2017-10-07 07:14] LABS: ABS Basophils 0 10^3/ul (0-0.2); ABS Eosinophils 0 10^3/ul (0-0.6); ABS Lymphocytes 0.9 10^3/ul (1.0-4.8); ABS Monocytes 0.5 10^3/ul (0-0.8); ABS Neutrophils 5.2 10^3/ul (1.5-7.7); ABS Nucleated RBC 0 10^3/ul; Eosinophil % 0.2 % (0-6); Hematocrit 29 % (42-52); Hemoglobin 9.4 g/dl (14.0-18.0); Lymphocyte % 13.3 % (25-47); Mean Corpuscular HGB Conc 33 g/dl (31-36); Mean Corpuscular Hemoglobin 23 pg (27-31); Mean Corpuscular Volume 69 fL (80-94); Mean Platelet Volume 8.4 um3 (7.4-10.4); Nucleated Red Blood Cells % 0; Platelet Count 147 10^3/ul (150-450); Red Blood Count 4.13 10^6/ul (4.00-5.40); Red Cell Distribution Width 21 % (10.5-15); White Blood Count 6.6 10^3/ul (3.5-10.8)
[2017-10-07 07:19] LABS: EGFR Non-African American 88.9 (>60)
[2017-10-07] MEDS: Insulin LISPRO* 1 UNITS UNIT SUBCUT SCH ×3 (07:50→17:31)
[2017-10-07] MEDS: NS 0.9% 1000 ML* 1,000 ML IV SCH (08:47)
[2017-10-07] MEDS: Docusate CAP* 100 MG PO SCH (08:48)
[2017-10-07] MEDS: Omeprazole CAP* 20 MG PO SCH (08:48)
[2017-10-07] MEDS: risperiDONE TAB* 1 MG PO SCH ×2 (08:48→20:19)
[2017-10-07] MEDS: Aspirin EC TAB* 81 MG TAB.EC PO SCH (08:48)
[2017-10-07] MEDS: Senna TAB PO SCH (08:48)
[2017-10-07] MEDS: Gabapentin CAP(*) 300 MG PO SCH ×3 (08:48→20:17)
[2017-10-07] MEDS: Cetirizine* 10 MG TAB PO SCH (08:48)
[2017-10-07] MEDS: busPIRone TAB* 15 MG PO SCH ×3 (08:49→20:18)
[2017-10-07] MEDS: Lidocaine PATCH 5%* 1 PATCH TRANSDERM SCH (08:50)
[2017-10-07] MEDS: Nicotine PATCH 14 MG/24 HR* PATCH TRANSDERM SCH (08:51)
[2017-10-07] MEDS ORDERED: Spiriva Inhaler DEVICE* 1 EACH DEVICE INH ONE ×2 (09:00→13:30)
[2017-10-07] MEDS: Tiotropium CAP.INH* CAP.INH/18 MCG (USE ORDER SET !) INH SCH (13:34)
--- NOTE | 2017-10-07 15:42 | PN ---
Subjective Date of Service: 10/07/17 Interval History: Pt seen and examined. Meds and labs reviewed. ROS: Denied WHITLEY/dizziness, F/C, N/V, CP, SOB, increased cough, sputum production , abd pain, diarrhea, constipation, dysuria, myalgias, arthralgias, throat pain , and new skin lesions. The rest of the 14 point ROS are unremarkable. PHYSICAL EXAM: GEN APPEARANCE: Awake, not in acute distress HEENT: NC/AT, PERRLA, moist oral mucosa, (-) throat erythema NECK: Soft, supple, (-) cervical LAD, (-)JVD HEART: S1S2 WNL, RRR, No MRG CHEST: CTA, BL, GAE, No W/R/R ABD: Soft, ND/NT, NABS 4x Q EXT: No C/C/E SKIN: Warm to touch PSYCH: No active psychosis, hallucinations, depression, SI/HI Objective Active Medications: Acetaminophen (Tylenol Tab*) 650 mg PO Q4H PRN PRN Reason: FEVER/PAIN Last Admin: 10/06/17 20:04 Dose: 650 mg Al Hydrox/Mg Hydrox/Simethicone (Maalox Plus*) 30 ml PO Q6H PRN PRN Reason: INDIGESTION Albuterol (Ventolin 2.5 Mg/3 Ml Neb.Wendy*) 2.5 mg INH [id number] AWAKE PRN PRN Reason: sob/wheezing Aspirin (Aspirin Ec Tab*) 81 mg PO DAILY [facility] Last Admin: 10/07/17 08:48 Dose: 81 mg Atorvastatin Calcium (Lipitor*) 10 mg PO BEDTIME [facility] Last Admin: 10/06/17 20:04 Dose: 10 mg Buspirone HCl (Buspar Tab *) 15 mg PO TID [facility] Last Admin: 10/07/17 13:34 Dose: 15 mg Cetirizine HCl (Zyrtec*) 10 mg PO DAILY [facility] Last Admin: 10/07/17 08:48 Dose: 10 mg Dextrose (D50w Syringe 50 Ml*) 12.5 gm IV PUSH .FOR FS < 60 - SS PRN PRN Reason: FS < 60 Docusate Sodium (Colace Cap*) 100 mg PO DAILY [facility] Last Admin: 10/07/17 08:48 Dose: 100 mg Gabapentin (Neurontin Cap(*)) 300 mg PO TID [facility] Last Admin: 10/07/17 13:34 Dose: 300 mg Heparin Sodium (Porcine) (Heparin Vial(*)) 5,000 units SUBCUT Q8HR [facility] Last Admin: 10/07/17 13:34 Dose: 5,000 units Hydroxyzine HCl (Atarax Tab*) 100 mg PO BEDTIME [facility] Last Admin: 10/06/17 20:04 Dose: 100 mg Ceftriaxone Sodium 1 gm/ (Sodium Chloride) 50 mls @ 200 mls/hr IVPB Q24H [facility] Last Admin: 10/06/17 17:08 Dose: 200 mls/hr Azithromycin 500 mg/ Sodium (Chloride) 250 mls @ 250 mls/hr IVPB Q24H [facility] Last Admin: 10/06/17 20:04 Dose: 250 mls/hr Sodium Chloride (Ns 0.9% 1000 Ml*) 1,000 mls @ 75 mls/hr IV PER RATE [facility] Last Admin: 10/07/17 08:47 Dose: 75 mls/hr Insulin Human Lispro (Humalog*) 0 units SUBCUT AC [facility] PRN Reason: Protocol Last Admin: 10/07/17 13:34 Dose: 1 unit Ipratropium [place] (Atrovent 0.5 Mg Neb.Wendy*) 0.5 mg INH Q12H PRN PRN Reason: SOB/WHEEZING Lidocaine (Lidoderm 5% Patch*) 1 patch TRANSDERM DAILY [facility] Last Admin: 10/07/17 08:50 Dose: 1 patch Nicotine (Nicotine Patch 14 Mg/24 Hr*) 1 patch TRANSDERM DAILY [facility] Last Admin: 10/07/17 08:51 Dose: 1 patch Omeprazole (Prilosec Cap*) 20 mg PO DAILY@0730 [facility] Last Admin: 10/07/17 08:48 Dose: 20 mg Pharmacy Profile Note (Nicotine Patch Removal Note*) 1 note PATCH OFF 2100 [facility] Last Admin: 10/06/17 20:08 Dose: 1 note Quetiapine Fumarate (Seroquel Tab*) 400 mg PO BEDTIME [facility] Last Admin: 10/06/17 20:03 Dose: 400 mg Risperidone (Risperdal*) 1 mg PO BID [facility] Last Admin: 10/07/17 08:48 Dose: 1 mg Senna (Senokot Tab*) 2 tab PO DAILY [facility] Last Admin: 10/07/17 08:48 Dose: 2 tab Tiotropium [place] (Spiriva Cap.Inh*) 1 cap INH DAILY [facility] Last Admin: 10/07/17 13:34 Dose: 1 cap Vital Signs - 8 hr 10/07/17 10/07/17 10/07/17 07:48 07:58 08:48 Temperature 99.9 F Pulse Rate 73 Respiratory 20 24 Rate Blood Pressure 136/50 (mmHg) O2 Sat by Pulse 90 92 Oximetry 10/07/17 10/07/17 10/07/17 09:41 11:20 11:45 Temperature 99.0 F Pulse Rate 73 Respiratory 24 16 19 Rate Blood Pressure 128/43 (mmHg) O2 Sat by Pulse 98 Oximetry 10/07/17 13:34 Temperature Pulse Rate Respiratory 18 Rate Blood Pressure (mmHg) O2 Sat by Pulse Oximetry Oxygen Devices in Use Now: Nasal Cannula Result Diagrams: 10/07/17 06:30 10/07/17 06:30 Additional Lab and Data: Lab Results 10/05/17 10/05/17 10/05/17 Range/Units 13:19 13:19 13:19 WBC 11.5 H (3.5-10.8) 10^3/ul RBC 5.04 (4.00-5.40) 10^6/ul Hgb 11.2 L (14.0-18.0) g/dl Hct 35 L (42-52) % MCV 70 L (80-94) fL MCH 22 L (27-31) pg MCHC 32 (31-36) g/dl RDW 20 H (10.5-15) % Plt Count 198 (150-450) 10^3/ul MPV 7.8 (7.4-10.4) um3 Neut % (Auto) 92.5 H (38-83) % Lymph % (Auto) 2.7 L (25-47) % [place] % (Auto) 4.4 (0-7) % Eos % (Auto) 0 (0-6) % Baso % (Auto) 0.4 (0-2) % Absolute Neuts (auto) 10.7 H (1.5-7.7) 10^3/ul Absolute Lymphs (auto) 0.3 L (1.0-4.8) 10^3/ul Absolute Monos (auto) 0.5 (0-0.8) 10^3/ul Absolute Eos (auto) 0 (0-0.6) 10^3/ul Absolute Basos (auto) 0 (0-0.2) 10^3/ul Absolute Nucleated RBC 0 10^3/ul Nucleated RBC % 0 INR (Anticoag Therapy) 1.06 H (0.77-1.02) APTT 27.2 (26.0-36.3) seconds Sodium 136 (135-145) mmol/L Potassium 3.9 (3.5-5.0) mmol/L Chloride 104 (101-111) mmol/L Carbon Dioxide 22 (22-32) mmol/L Anion Gap 10 (2-11) mmol/L BUN 14 (6-24) mg/dL Creatinine 1.35 H (0.67-1.17) mg/dL Est GFR ( Amer) 67.0 (>60) Est GFR (Non-Af Amer) 52.1 (>60) BUN/Creatinine Ratio 10.4 (8-20) Glucose 160 H (70-100) mg/dL Lactic Acid (0.5-2.0) mmol/L Calcium 9.1 (8.6-10.3) mg/dL Total Bilirubin 0.40 (0.2-1.0) mg/dL AST 13 (13-39) U/L ALT 9 (7-52) U/L Alkaline Phosphatase 64 (34-104) U/L Troponin I 0.03 (<0.04) ng/mL C-Reactive Protein 72.73 H (< 5.00) mg/L B-Natriuretic Peptide ( - 100) pg/mL Total Protein 6.9 (6.4-8.9) g/dL Albumin 3.8 (3.2-5.2) g/dL Globulin 3.1 (2-4) g/dL Albumin/Globulin Ratio 1.2 (1-3) Urine Color Urine Appearance Urine pH (5-9) Ur Specific [place] (1.010-1.030) Urine Protein (Negative) Urine Ketones (Negative) Urine Blood (Negative) Urine Nitrate (Negative) Urine Bilirubin (Negative) Urine Urobilinogen (Negative) Ur Leukocyte Esterase (Negative) Urine WBC (Auto) (Absent) Urine RBC (Auto) (Absent) Urine Bacteria (Absent) Urine Glucose (Negative) Urine Ascorbic Acid (Negative) 10/05/17 10/05/17 10/05/17 Range/Units 13:19 13:19 15:08 WBC (3.5-10.8) 10^3/ul RBC (4.00-5.40) 10^6/ul Hgb (14.0-18.0) g/dl Hct (42-52) % MCV (80-94) fL MCH (27-31) pg MCHC (31-36) g/dl RDW (10.5-15) % Plt Count (150-450) 10^3/ul MPV (7.4-10.4) um3 Neut % (Auto) (38-83) % Lymph % (Auto) (25-47) % [place] % (Auto) (0-7) % Eos % (Auto) (0-6) % Baso % (Auto) (0-2) % Absolute Neuts (auto) (1.5-7.7) 10^3/ul Absolute Lymphs (auto) (1.0-4.8) 10^3/ul Absolute Monos (auto) (0-0.8) 10^3/ul Absolute Eos (auto) (0-0.6) 10^3/ul Absolute Basos (auto) (0-0.2) 10^3/ul Absolute Nucleated RBC 10^3/ul Nucleated RBC % INR (Anticoag Therapy) (0.77-1.02) APTT (26.0-36.3) seconds Sodium (135-145) mmol/L Potassium (3.5-5.0) mmol/L Chloride (101-111) mmol/L Carbon Dioxide (22-32) mmol/L Anion Gap (2-11) mmol/L BUN (6-24) mg/dL Creatinine (0.67-1.17) mg/dL Est GFR ( Amer) (>60) Est GFR (Non-Af Amer) (>60) BUN/Creatinine Ratio (8-20) Glucose (70-100) mg/dL Lactic Acid 2.3 H* (0.5-2.0) mmol/L Calcium (8.6-10.3) mg/dL Total Bilirubin (0.2-1.0) mg/dL AST (13-39) U/L ALT (7-52) U/L Alkaline Phosphatase (34-104) U/L Troponin I (<0.04) ng/mL C-Reactive Protein (< 5.00) mg/L B-Natriuretic Peptide 30 ( - 100) pg/mL Total Protein (6.4-8.9) g/dL Albumin (3.2-5.2) g/dL Globulin (2-4) g/dL Albumin/Globulin Ratio (1-3) Urine Color Sandy Urine Appearance Turbid Urine pH 6.0 (5-9) Ur Specific [place] 1.017 (1.010-1.030) Urine Protein 2+(100 mg/dl) A (Negative) Urine Ketones Trace A (Negative) Urine Blood 1+ A (Negative) Urine Nitrate Negative (Negative) Urine Bilirubin Negative (Negative) Urine Urobilinogen Negative (Negative) Ur Leukocyte Esterase 2+ A (Negative) Urine WBC (Auto) 3+(>20/hpf) A (Absent) Urine RBC (Auto) 3+(>10/hpf) A (Absent) Urine Bacteria Absent (Absent) Urine Glucose Negative (Negative) Urine Ascorbic Acid * A (Negative) Assess/Plan/Problems-Billing - Patient Problems (1) Pneumonia Current Visit: Yes Status: Acute Code(s): J18.9 - PNEUMONIA, UNSPECIFIED ORGANISM SNOMED Code(s): 045018428 Comment: -Continue Rocephin and Azithromycin -Urine Ag (-) for Legionella and S. pneumo -Will continue to follow cultures (2) UTI (urinary tract infection) Current Visit: Yes Status: Acute Comment: A Urinae UTI: -Continue antibiotics above---sensitivities usually not reported for this organism (3) Lactic acidosis Current Visit: Yes Status: Acute Code(s): E87.2 - ACIDOSIS SNOMED Code(s) : 73075560 Comment: -Likely due to pts sepsis in addition to pt being on Metformin -Consider placing pt on other PO meds in placement of Metformin on D/C (4) Hypocalcemia Current Visit: Yes Status: Acute Code(s): E83.51 - HYPOCALCEMIA SNOMED Code(s): 4056424 Comment: -Corrected -Continue watchful waiting (5) Diabetes 1.5, managed as type 2 Current Visit: Yes Status: Acute Code(s): E10.9 - TYPE 1 DIABETES MELLITUS WITHOUT COMPLICATIONS SNOMED Code(s): 107459727 Comment: -Well-controlled -Continue Insulin SS (6) ZHOU (acute kidney injury) Current Visit: Yes Status: Acute Code(s): N17.9 - ACUTE KIDNEY FAILURE, UNSPECIFIED SNOMED Code(s): 64283998 Comment: -Mild and improving -Likely due to mild sepsis (7) Schizophrenia Current Visit: Yes Status: Acute Code(s): F20.9 - SCHIZOPHRENIA, UNSPECIFIED SNOMED Code(s): 57903848 Comment: -Continue Quetiapine (8) Hyperlipidemia Current Visit: Yes Status: Acute Code(s): E78.5 - HYPERLIPIDEMIA, UNSPECIFIED SNOMED Code(s): 76799326 Comment: -Continue Atorvastatin (9) DVT prophylaxis Current Visit: Yes Status: Acute Code(s): JYS2591 - SNOMED Code(s): 726648454 Comment: -Continue heparin SQ Status and Disposition: -For PT eval -As above -Lebron Holt (brother-in law; of pts HPAhis sister): cell: ; Office: [phone] -Pt a resident of [place]?
[2017-10-07] MEDS: cefTRIAXone(*) 1 GM in NS 0.9% 50 ML* 50 ML IVPB SCH (17:31)
[2017-10-07] MEDS: Azithromycin IV(*) 500 MG in NS 0.9% 250 ML* 250 ML IVPB SCH (20:17)
[2017-10-07] MEDS: Atorvastatin* 10 MG TAB PO SCH (20:18)
[2017-10-07] MEDS: QUEtiapine TAB* 100 MG PO SCH (20:18)
[2017-10-07] MEDS: hydrOXYzine HCL TAB* 50 MG PO SCH (20:19)
[2017-10-07] MEDS: Nicotine Patch Removal NOTE PATCH OFF SCH (20:22)
[2017-10-08] MEDS: NS 0.9% 1000 ML* 1,000 ML IV SCH (00:47)
[2017-10-08] MEDS: Heparin VIAL(*) 5000 UNITS/ML VIAL (FIVE THOUSAND) SUBCUT SCH ×2 (05:14→12:09)
[2017-10-08 06:28] LABS: ABS Basophils 0 10^3/ul (0-0.2); ABS Eosinophils 0 10^3/ul (0-0.6); ABS Monocytes 0.5 10^3/ul (0-0.8); ABS Neutrophils 3.9 10^3/ul (1.5-7.7); ABS Nucleated RBC 0 10^3/ul; Eosinophil % 0.3 % (0-6); Hematocrit 28 % (42-52); Hemoglobin 9.1 g/dl (14.0-18.0); Lymphocyte % 18.7 % (25-47); Mean Corpuscular HGB Conc 33 g/dl (31-36); Mean Corpuscular Hemoglobin 23 pg (27-31); Mean Corpuscular Volume 69 fL (80-94); Mean Platelet Volume 7.8 um3 (7.4-10.4); Nucleated Red Blood Cells % 0; Platelet Count 138 10^3/ul (150-450); Red Blood Count 4.01 10^6/ul (4.00-5.40); Red Cell Distribution Width 21 % (10.5-15); White Blood Count 5.4 10^3/ul (3.5-10.8)
[2017-10-08 07:02] LABS: EGFR Non-African American 101.1 (>60)
[2017-10-08] MEDS: Insulin LISPRO* 1 UNITS UNIT SUBCUT SCH ×2 (07:57→12:08)
[2017-10-08] MEDS: Gabapentin CAP(*) 300 MG PO SCH ×2 (07:59→12:06)
[2017-10-08] MEDS: Omeprazole CAP* 20 MG PO SCH (07:59)
[2017-10-08] MEDS: risperiDONE TAB* 1 MG PO SCH (07:59)
[2017-10-08] MEDS: Senna TAB PO SCH (08:00)
[2017-10-08] MEDS: busPIRone TAB* 15 MG PO SCH ×2 (08:00→12:06)
[2017-10-08] MEDS: Aspirin EC TAB* 81 MG TAB.EC PO SCH (08:00)
[2017-10-08] MEDS: Cetirizine* 10 MG TAB PO SCH (08:00)
[2017-10-08] MEDS: Docusate CAP* 100 MG PO SCH (08:00)
[2017-10-08] MEDS: Lidocaine PATCH 5%* 1 PATCH TRANSDERM SCH (08:02)
[2017-10-08] MEDS: Nicotine PATCH 14 MG/24 HR* PATCH TRANSDERM SCH (08:02)
[2017-10-08] MEDS: Tiotropium CAP.INH* CAP.INH/18 MCG (USE ORDER SET !) INH SCH (09:48)
[2017-10-08 12:11] VITALS: BP 154/64
--- NOTE | 2017-10-08 18:22 | PN ---
Subjective Date of Service: 10/08/17 Interval History: RN called me and mentioned that Vantin seems to not have been sent to pharmacy despite the order. I reordered it just now and received a confirmation that it was sent to pharmacy. Objective Vital Signs - 8 hr 10/08/17 10/08/17 10/08/17 10:42 11:35 12:06 Temperature 99.0 F Pulse Rate 71 Respiratory 22 18 20 Rate Blood Pressure 154/64 (mmHg) O2 Sat by Pulse 92 Oximetry 10/08/17 10/08/17 12:24 16:12 Temperature Pulse Rate Respiratory 20 Rate Blood Pressure (mmHg) O2 Sat by Pulse 92 Oximetry Oxygen Devices in Use Now: Nasal Cannula Result Diagrams: 10/08/17 06:09 10/08/17 06:09 Additional Lab and Data: Lab Results 10/05/17 10/05/17 10/05/17 Range/Units 13:19 13:19 13:19 WBC 11.5 H (3.5-10.8) 10^3/ul RBC 5.04 (4.00-5.40) 10^6/ul Hgb 11.2 L (14.0-18.0) g/dl Hct 35 L (42-52) % MCV 70 L (80-94) fL MCH 22 L (27-31) pg MCHC 32 (31-36) g/dl RDW 20 H (10.5-15) % Plt Count 198 (150-450) 10^3/ul MPV 7.8 (7.4-10.4) um3 Neut % (Auto) 92.5 H (38-83) % Lymph % (Auto) 2.7 L (25-47) % [place] % (Auto) 4.4 (0-7) % Eos % (Auto) 0 (0-6) % Baso % (Auto) 0.4 (0-2) % Absolute Neuts (auto) 10.7 H (1.5-7.7) 10^3/ul Absolute Lymphs (auto) 0.3 L (1.0-4.8) 10^3/ul Absolute Monos (auto) 0.5 (0-0.8) 10^3/ul Absolute Eos (auto) 0 (0-0.6) 10^3/ul Absolute Basos (auto) 0 (0-0.2) 10^3/ul Absolute Nucleated RBC 0 10^3/ul Nucleated RBC % 0 INR (Anticoag Therapy) 1.06 H (0.77-1.02) APTT 27.2 (26.0-36.3) seconds Sodium 136 (135-145) mmol/L Potassium 3.9 (3.5-5.0) mmol/L Chloride 104 (101-111) mmol/L Carbon Dioxide 22 (22-32) mmol/L Anion Gap 10 (2-11) mmol/L BUN 14 (6-24) mg/dL Creatinine 1.35 H (0.67-1.17) mg/dL Est GFR ( Amer) 67.0 (>60) Est GFR (Non-Af Amer) 52.1 (>60) BUN/Creatinine Ratio 10.4 (8-20) Glucose 160 H (70-100) mg/dL Lactic Acid (0.5-2.0) mmol/L Calcium 9.1 (8.6-10.3) mg/dL Total Bilirubin 0.40 (0.2-1.0) mg/dL AST 13 (13-39) U/L ALT 9 (7-52) U/L Alkaline Phosphatase 64 (34-104) U/L Troponin I 0.03 (<0.04) ng/mL C-Reactive Protein 72.73 H (< 5.00) mg/L B-Natriuretic Peptide ( - 100) pg/mL Total Protein 6.9 (6.4-8.9) g/dL Albumin 3.8 (3.2-5.2) g/dL Globulin 3.1 (2-4) g/dL Albumin/Globulin Ratio 1.2 (1-3) Urine Color Urine Appearance Urine pH (5-9) Ur Specific [place] (1.010-1.030) Urine Protein (Negative) Urine Ketones (Negative) Urine Blood (Negative) Urine Nitrate (Negative) Urine Bilirubin (Negative) Urine Urobilinogen (Negative) Ur Leukocyte Esterase (Negative) Urine WBC (Auto) (Absent) Urine RBC (Auto) (Absent) Urine Bacteria (Absent) Urine Glucose (Negative) Urine Ascorbic Acid (Negative) 10/05/17 10/05/17 10/05/17 Range/Units 13:19 13:19 15:08 WBC (3.5-10.8) 10^3/ul RBC (4.00-5.40) 10^6/ul Hgb (14.0-18.0) g/dl Hct (42-52) % MCV (80-94) fL MCH (27-31) pg MCHC (31-36) g/dl RDW (10.5-15) % Plt Count (150-450) 10^3/ul MPV (7.4-10.4) um3 Neut % (Auto) (38-83) % Lymph % (Auto) (25-47) % [place] % (Auto) (0-7) % Eos % (Auto) (0-6) % Baso % (Auto) (0-2) % Absolute Neuts (auto) (1.5-7.7) 10^3/ul Absolute Lymphs (auto) (1.0-4.8) 10^3/ul Absolute Monos (auto) (0-0.8) 10^3/ul Absolute Eos (auto) (0-0.6) 10^3/ul Absolute Basos (auto) (0-0.2) 10^3/ul Absolute Nucleated RBC 10^3/ul Nucleated RBC % INR (Anticoag Therapy) (0.77-1.02) APTT (26.0-36.3) seconds Sodium (135-145) mmol/L Potassium (3.5-5.0) mmol/L Chloride (101-111) mmol/L Carbon Dioxide (22-32) mmol/L Anion Gap (2-11) mmol/L BUN (6-24) mg/dL Creatinine (0.67-1.17) mg/dL Est GFR ( Amer) (>60) Est GFR (Non-Af Amer) (>60) BUN/Creatinine Ratio (8-20) Glucose (70-100) mg/dL Lactic Acid 2.3 H* (0.5-2.0) mmol/L Calcium (8.6-10.3) mg/dL Total Bilirubin (0.2-1.0) mg/dL AST (13-39) U/L ALT (7-52) U/L Alkaline Phosphatase (34-104) U/L Troponin I (<0.04) ng/mL C-Reactive Protein (< 5.00) mg/L B-Natriuretic Peptide 30 ( - 100) pg/mL Total Protein (6.4-8.9) g/dL Albumin (3.2-5.2) g/dL Globulin (2-4) g/dL Albumin/Globulin Ratio (1-3) Urine Color Sandy Urine Appearance Turbid Urine pH 6.0 (5-9) Ur Specific [place] 1.017 (1.010-1.030) Urine Protein 2+(100 mg/dl) A (Negative) Urine Ketones Trace A (Negative) Urine Blood 1+ A (Negative) Urine Nitrate Negative (Negative) Urine Bilirubin Negative (Negative) Urine Urobilinogen Negative (Negative) Ur Leukocyte Esterase 2+ A (Negative) Urine WBC (Auto) 3+(>20/hpf) A (Absent) Urine RBC (Auto) 3+(>10/hpf) A (Absent) Urine Bacteria Absent (Absent) Urine Glucose Negative (Negative) Urine Ascorbic Acid * A (Negative) Assess/Plan/Problems-Billing Assessment: - Patient Problems (1) Pneumonia Status: Acute Code(s): J18.9 - PNEUMONIA, UNSPECIFIED ORGANISM SNOMED Code(s ): 274509806 Comment: -Continue Rocephin and Azithromycin -Urine Ag (-) for Legionella and S. pneumo -Will continue to follow cultures (2) UTI (urinary tract infection) Status: Acute Comment: A Urinae UTI: -Continue antibiotics above---sensitivities usually not reported for this organism (3) Lactic acidosis Status: Acute Code(s): E87.2 - ACIDOSIS SNOMED Code(s): 98229755 Comment: -Likely due to pts sepsis in addition to pt being on Metformin -Consider placing pt on other PO meds in placement of Metformin on D/C (4) Hypocalcemia Status: Acute Code(s): E83.51 - HYPOCALCEMIA SNOMED Code(s): 0033397 Comment: -Corrected -Continue watchful waiting (5) Diabetes 1.5, managed as type 2 Status: Acute Code(s): E10.9 - TYPE 1 DIABETES MELLITUS WITHOUT COMPLICATIONS SNOMED Code(s): 486750142 Comment: -Well-controlled -Continue Insulin SS (6) ZHOU (acute kidney injury) Status: Acute Code(s): N17.9 - ACUTE KIDNEY FAILURE, UNSPECIFIED SNOMED Code (s): 45570131 Comment: -Mild and improving -Likely due to mild sepsis (7) Schizophrenia Status: Acute Code(s): F20.9 - SCHIZOPHRENIA, UNSPECIFIED SNOMED Code(s): 09735097 Comment: -Continue Quetiapine (8) Hyperlipidemia Status: Acute Code(s): E78.5 - HYPERLIPIDEMIA, UNSPECIFIED SNOMED Code(s): 96798005 Comment: -Continue Atorvastatin (9) DVT prophylaxis Status: Acute Code(s): LSU4807 - SNOMED Code(s): 554117493 Comment: -Continue heparin SQ Status and Disposition: -For PT eval -As above -Lebron Holt (brother-in law; of pts HPAhis sister): cell: [phone]; Office: [phone] -Pt a resident of [place]?
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
--- NOTE | 2017-10-09 10:36 | DS ---
DISCHARGE SUMMARY: ADDENDUM: DISCHARGE MEDICATIONS: Robitussin DM 10 mL p.o. q.4 hours p.r.n. for cough. REVIEW OF SYSTEMS: The patient mentions that he still coughs especially with deep breathing but has subsequently improved and does not feel any shortness of breath. [id number]/[facility] #: [id number]
== END 2017-10-08 16:25 | disposition home health service (06) | DRG 871 ==
LOC: ED 12:51 → MED 16:53 → OBSVTOIN 10-06 12:30 → MED 10-06 18:41
PROVIDERS: ADMIT Internal Medicine; ATTEND Student in an Organized Health Care Education/Training Program
DX: A41.9 Sepsis, unspecified organism (principal); J18.9 Pneumonia, unspecified organism; N39.0 Urinary tract infection, site not specified; E87.2 Acidosis; N17.9 Acute kidney failure, unspecified; B96.89 Other specified bacterial agents as the cause of diseases classified elsewhere; E11.40 Type 2 diabetes mellitus with diabetic neuropathy, unspecified; E83.51 Hypocalcemia; F20.9 Schizophrenia, unspecified; E78.5 Hyperlipidemia, unspecified; N40.0 Benign prostatic hyperplasia without lower urinary tract symptoms; K21.9 Gastro-esophageal reflux disease without esophagitis; Z87.820 Personal history of traumatic brain injury; F32.9 Major depressive disorder, single episode, unspecified; F09 Unspecified mental disorder due to known physiological condition; M19.90 Unspecified osteoarthritis, unspecified site; M25.562 Pain in left knee; I47.9 Paroxysmal tachycardia, unspecified; Z96.652 Presence of left artificial knee joint; Z79.84 Long term (current) use of oral hypoglycemic drugs; Z79.82 Long term (current) use of aspirin; Z79.899 Other long term (current) drug therapy; Z88.8 Allergy status to other drugs, medicaments and biological substances; Z80.8 Family history of malignant neoplasm of other organs or systems; F17.210 Nicotine dependence, cigarettes, uncomplicated
CPT/HCPCS: 36415; 71046; 80048; 80053; 81003; 81015; 82330; 83605; 83735; 83880; 84100; 84484; 85025; 85610; 85730; 86140; 87040; 87070; 87077; 87086; 87205; 87641; 87899; 93005; 94640; 99283; 99406; A9270-GY; G0378; G8978-GP-CI; G8979-GP-CI; G8980-GP-CI; J0456; J0696; J1644; J2543

== ENCOUNTER 2017-10-30 17:52 | Observation (INO) | payer MEDICARE, MEDICAID ==
--- NOTE | 2017-10-30 18:10 | ED ---
Neurological HPI - HPI Summary HPI Summary: LEVEL 5 CAVEAT DUE TO AMS This patient is a 71 year old M BIBA to ED with a chief complaint of neurological deficit s/p fall at unknown time. The patient lives independently at [facility]. He was last seen this morning at 0730. When he didn t come down for his medications, [place] staff went to check on him and found him on the floor between the bed and wall. Per EMS, he was incontinent, had unequal pupils, was unresponsive, and had R arm weakness. Per staff at community home, his facial droop and current speech are unusual from baseline. The patient rates the pain 0/10 in severity. Symptoms aggravated by nothing. Symptoms alleviated by nothing. - History of Current Complaint Stated Complaint: POSSIBLE STROKE/AMS Hx Obtained From: Family/Boiler/Chiller Technician, EMS Hx From Patient Unobtainable Due To: Altered Mental Status Onset/Duration: Sudden Onset, Still Present, Other - UNKNOWN ONSET Timing: Constant Current Severity: None Neurological Deficit Location: Facial - facial droop, RUE - weakness Pain Intensity: 0 Pain Scale Used: 0-10 Numeric Character: Other: - CC is neurological deficit s/p fall at unknown time. Per EMS , he was incontinent, had unequal pupils, was unresponsive, and had R arm weakness. Per staff at [facility], his facial droop and current speech are unusual from baseline. - Additional Pertinent History Primary Care Physician: [id number] - Allergy/Home Medications Allergies/Adverse Reactions: Allergies Allergy/AdvReac Type Severity Reaction Status Date / Time bupropion [From Wellbutrin] Allergy Unknown Verified 08/18/17 23:46 Reaction Details Home Medications: Home Medications metFORMIN* [Glucophage 500 MG TAB *] 500 mg PO BID 10/30/17 [History Confirmed 10/30/17] PMH/Surg Hx/FS Hx/Imm Hx Endocrine/Hematology History: Reports: Hx Diabetes Denies: Hx Anticoagulant Therapy, Hx Blood Disorders, Hx Blood Transfusions, Hx Bone Marrow Disease, Hx Systemic Lupus Erythematosus, Hx Sickle Cell Disease , Hx Thyroid Disease, Hx Anemia, Hx Unexplained Bleeding, Other Endocrine/ Hematological Disorders Cardiovascular History: Reports: Hx Hypercholesterolemia - DYSLIPIDEMIA, Hx Hypertension, Hx Syncope, 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 Denies: Hx Aneurysm, Hx Angina, Hx Angioplasty, Hx Auto Implanted Cardiovert Defib, Hx Cardiac Arrest, Hx Cardiomegaly, Hx Congenital Heart Disease, Hx Congestive Heart Failure, Hx Coronary Artery Disease, Hx Deep Vein Thrombosis, Hx Embolism, Hx Hypotension, Hx Pacemaker/ICD, Hx Peripheral Vascular Disease, Hx Rheumatic Fever, Hx Valvular Heart Disease GI History: Reports: Hx Gastroesophageal Reflux Disease, Other GI Disorders - CHRONIC CONSTIPATION Denies: Hx Cirrhosis, Hx Crohn's Disease, Hx Diverticulosis, Hx Gall Bladder Disease, Hx Gastrointestinal Bleed, Hx Hiatal Hernia, Hx Irritable Bowel, Hx Jaundice, Hx Obstructive Bowel, Hx Ileostomy, Hx Pyloric Stenosis, Hx Ulcer History: Reports: Hx Benign Prostatic Hyperplasia Denies: Hx Acute Renal Failure, Hx Chronic Renal Failure, Hx Dialysis, Hx Kidney Infection, Hx Kidney Stones, Other Problems/Disorders Musculoskeletal History: Reports: Hx Arthritis, Hx Back Problems - SPINAL CORD INJURY, Hx Orthopedic Injury - TKA, Hx Osteoporosis, Other Musculoskeletal History - BELLS PALSY Denies: Hx Bursitis, Hx Congenital Bone Abnormalities, Hx Fibromyalgia, Hx Gout, Hx Scoliosis, Hx Tendonitis Sensory History: Reports: Hx Contacts or Glasses - reading glasses, Hx Vision Problem Denies: Hx Eye Injury, Hx Eye Prosthesis, Hx Glaucoma, Hx Macular Degeneration, Hx Hearing Aid, Hx Hearing Problem, Other Sensory Impairments Opthamlomology History: Reports: Hx Contacts or Glasses - reading glasses, Hx Vision Problem Denies: Hx Eye Injury, Hx Eye Prosthesis, Hx Glaucoma, Hx Macular Degeneration, Other Sensory Impairments Neurological History: Reports: Hx Nerve Disease, Hx Spinal Cord Injury, Other Neuro Impairments/Disorders - BELLS PALSY, COGNATIVE DISORDER Denies: Hx Dementia, Hx Developmental Delay, Hx Headaches, Hx Migraine, Hx Seizures, Hx Transient Ischemic Attacks (TIA) Psychiatric History: Reports: Hx Depression, Hx Schizophrenia - PARANOID, Hx of Violent Episodes Against Others, Hx Substance Abuse, Other Psychiatric Issues/ Disorders - COGNATIVE DISORDER Denies: Hx Anxiety, Hx Attention Deficit Hyperactivity Disorder, Hx Eating Disorder, Hx Panic Disorder, Hx Post Traumatic Stress Disorder, Hx Inpatient Treatment, Hx Community Mental Health Tx, Hx Bipolar Disorder, Hx Suicide Attempt - Surgical History Surgery Procedure, Year, and Place: CATARACTS, TOTAL LEFT KNEE REPLACEMENT, LUMBAR SURGERY Hx Anesthesia Reactions: No Infectious Disease History: Denies: Hx Clostridium Difficile, Hx Hepatitis, Hx Human Immunodeficiency Virus (HIV), Hx of Known/Suspected MRSA, Hx Shingles, Hx Tuberculosis, Hx Known/ Suspected VRE, Hx Known/Suspected VRSA, History Other Infectious Disease - Family History Known Family History: Negative: Renal Disease Family History: Pt is a poor historian. - Social History Alcohol Use: Daily Alcohol Amount: 1-2 beers/day Hx Substance Use: Yes Substance Use Type: Reports: Marijuana Substance Use Comment - Amount & Last Used: one joint a week Hx Tobacco Use: Yes Smoking Status (MU): Current Every Day Smoker Type: Cigarettes Have You Smoked in the Last Year: Yes Review of Systems Positive: Other - unequal pupils Positive: Other - incontinent Positive: Other - had a fall at unknown time Neurological: Other - unresponsive, and had R arm weakness All Other Systems Reviewed And Are Negative: No Physical Exam - Summary Physical Exam Summary: Appearance: The patient looked disheveled, but hes awake and alert. His hygiene is very poor. Skin: Warm, dry, no obvious rash Eyes: sclera anicteric, no conjunctival pallor. Eyes are normal and gaze is good. No neglect of either side. ENT: mucous membranes moist, pharynx appears normal Neck: Supple, nontender Respiratory: Clear to auscultation, no signs of respiratory distress Cardiovascular: Normal S1, S2. No murmurs. Normal distal pulses in tibial and radial bilaterally. Abdomen: Soft, nontender. His belly is protuberant, umbilical hernia is inducible and nontender. GIGU: Incontinental feces. Musculoskeletal: Strength/ROM Intact. Small bruise of L hip. Motor ability of the legs are symmetric, can lift both against gravity and slight resistance. Weakness of R arm, can lift them both but not against resistance. No Babinski on either side. Sensation difficulty to assess on the feet; the patient didnt cooperate with that. Neurological: Neurologically awake and alert but disoriented to time and place. He knows his name. Speech is dysarthric. Asymmetry of his mouth and breast but his smile is fairly symmetric. Cranial nerves are normal. Psychiatric: affect is normal, does not appear anxious or depressed GCS 14 Triage Information Reviewed: Yes Vital Signs On Initial Exam: Initial Vitals Temp Pulse Resp BP Pulse Ox 97.6 F 74 25 120/72 96 10/30/17 18:02 10/30/17 18:02 10/30/17 18:02 10/30/17 18:02 10/30/17 18:02 Vital Signs Reviewed: Yes Diagnostics - Laboratory Result Diagrams: 10/30/17 18:50 10/30/17 18:50 Lab Statement: Any lab studies that have been ordered have been reviewed, and results considered in the medical decision making process. - Radiology Hip/Pelvis XR Radiology Interpretation Completed By: Radiologist - No definite fracture of left hip is noted. ED physician has reviewed this radiology report. - CT Brain CT CT Interpretation Completed By: Radiologist - No intracranial mass or hemorrhage is noted. ED physician has reviewed this radiology result. Head CTA CT Interpretation Completed By: Radiologist - Normal bifurcation of the middle cerebral arteries. Dominant left vertebral artery. No aneurysmal dilatation is noted. No branch occlusion is identified. ED physician has reviewed this radiology result. - EKG 1804 Cardiac Rate: NL EKG Rhythm: Sinus Rhythm - NSR at 73BPM, P waves, QRS complex, and T waves are within normal limits, T waves and intervals are normal, no ischemic changes. This is a normal EKG. Re-Evaluation - Re-Evaluation First Eval Re-Evaluation Time: 19:49 Comment: The patient's speech is a little better, but he still can't recall his family member's names, where he lives, or where he grew up. His R arm is still weak. Course/Dx - Diagnoses Provider Diagnoses: CVA (cerebral vascular accident) - Physician Notifications Discussed Care Of Patient With: Fidel Hunter Time Discussed With Above Provider: 18:18 Instructed by Provider To: Other - Consulted the transfer center in [place] at 1809 to discuss the patient's case. Consulted Dr. Hunter at 1818 about the patient's case who said he would wait for the Brain CT and Head CTA results before proceeding. Consulted Dr. Hunter at 1852 who says that he's not seeing anything large vessel. Consulted Dr. Johnson at 2004 about the patient's case and he accepts the patient for admission. - Critical Care Time Critical Care Time: 30-74 min - 71 y/o man with acute neurological syndrome suggestive of large vessel occlusion. Consulted with Stroke Neurology team at [facility], expediated imaging workup including CT and CTA. Multiple phone calls with consultants, re evaluations of the patient. Discharge - Sign-Out/Discharge Documenting (check all that apply): Patient Departure - Discharge Plan Condition: Improved Disposition: ADMITTED TO [facility] - Billing Disposition and Condition Condition: IMPROVED Disposition: Admitted to [facility]
[2017-10-30] MEDS ORDERED: Iodixanol* (CONTRAST) 320 MG/ML 100 ML SDV IV ONE (18:18)
--- NOTE | 2017-10-30 18:39 | RAD ---
Indication: Right upper extremity weakness, mental status confusion. CT of the brain was performed without IV contrast. Ventricular structures are midline. No midline shift is noted. The extra-axial spaces are unremarkable. There is no evidence of intracranial mass or hemorrhage. No other high or low density lesions are identified. Mastoid air cells and paranasal sinuses are unremarkable. IMPRESSION: No intracranial mass or hemorrhage is noted.
--- NOTE | 2017-10-30 18:43 | RAD ---
Indication: Right-sided weakness. Contrast: Administered 60.0 ml of VISAPAQUE 320 mg/ml CTA of the head performed after IV contrast administration. Coronal and sagittal reconstructed images were obtained. The visualized internal carotid arteries are unremarkable. The intracavernous portions of the internal carotid arteries are unremarkable. Anterior and middle cerebral arteries are grossly unremarkable. Patent anterior communicating artery is noted. Dominant left vertebral artery is noted. Basilar artery is unremarkable. Posterior cerebral artery are patent bilaterally with no evidence of aneurysmal dilatation. No branch occlusion is noted. Patent posterior communicating arteries are noted. IMPRESSION: Normal bifurcation of the middle cerebral arteries. Dominant left vertebral artery. No aneurysmal dilatation is noted. No branch occlusion is identified.
--- NOTE | 2017-10-30 18:44 | RAD ---
Indication: Left hip pain after fall. 2 views of left hip are reviewed. No definite fracture is noted. Pelvic ring is grossly intact. Sacroiliac joints are grossly unremarkable. IMPRESSION: No definite fracture of left hip is noted.
[2017-10-30 18:58] LABS: INR 0.92 (0.77-1.02)
[2017-10-30 19:02] LABS: ABS Basophils 0 10^3/ul (0-0.2); ABS Eosinophils 0.1 10^3/ul (0-0.6); ABS Lymphocytes 2.9 10^3/ul (1.0-4.8); ABS Monocytes 0.4 10^3/ul (0-0.8); ABS Neutrophils 3.6 10^3/ul (1.5-7.7); ABS Nucleated RBC 0 10^3/ul; Eosinophil % 1.5 % (0-6); Hematocrit 34 % (42-52); Hemoglobin 10.9 g/dl (14.0-18.0); Lymphocyte % 41.2 % (25-47); Mean Corpuscular HGB Conc 32 g/dl (31-36); Mean Corpuscular Hemoglobin 23 pg (27-31); Mean Corpuscular Volume 71 fL (80-94); Mean Platelet Volume 7.4 um3 (7.4-10.4); Nucleated Red Blood Cells % 0; Platelet Count 246 10^3/ul (150-450); Red Cell Distribution Width 20 % (10.5-15); White Blood Count 7.1 10^3/ul (3.5-10.8)
[2017-10-30 19:06] LABS: Urine Appearance Clear; Urine Blood 3+ (Negative); Urine Color Yellow; Urine Ketones Negative (Negative); Urine Protein Negative (Negative); Urine Red Blood Cell Trace(0-2/hpf) (Absent); Urine Specific Gravity 1.003 (1.010-1.030); Urine Urobilinogen Negative (Negative); Urine White Blood Cell Trace(0-5/hpf) (Absent)
[2017-10-30 19:29] LABS: EGFR Non-African American 96.7 (>60)
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
[2017-10-30] MEDS ORDERED: Spiriva Inhaler DEVICE* 1 EACH DEVICE SCH (23:00)
[2017-10-30] MEDS ORDERED: Albuterol 2.5 MG/3 ML NEB.SOL* (0.083%) INH PRN (23:00)
[2017-10-30] MEDS ORDERED: Ondansetron ODT TAB* 4 MG PO PRN (23:00)
[2017-10-30] MEDS ORDERED: NS 0.9% 1000 ML* 1,000 ML IV SCH (23:00)
[2017-10-30] MEDS ORDERED: Melatonin 3 MG TAB PO PRN (23:00)
[2017-10-30] MEDS ORDERED: Acetaminophen TAB* 325 MG PO PRN (23:00)
[2017-10-30] MEDS ORDERED: Ipratropium 0.5MG/2.5ML NEB* 0.5 MG/2.5 ML NEB.SOLN INH PRN (23:15)
[2017-10-30] MEDS ORDERED: NS 0.9% 1000 ML* 1,000 ML IV ONE (23:15)
[2017-10-31] MEDS ORDERED: NS 0.9% 1000 ML* 1,000 ML IV ONE (01:28)
--- NOTE | 2017-10-31 05:31 | PN ---
Hospitalist Progress Note Date of Service: 10/31/17 Pt with urinary retention > 500cc in bladder. Post void residual > 500cc. Will place hanna for retention
[2017-10-31] MEDS: Heparin VIAL(*) 5000 UNITS/ML VIAL (FIVE THOUSAND) SUBCUT SCH ×2 (05:57→15:02)
[2017-10-31] MEDS ORDERED: Omeprazole CAP* 20 MG PO SCH ×2 (06:00→09:00)
[2017-10-31] MEDS: Insulin LISPRO* 1 UNITS UNIT SUBCUT SCH ×3 (07:46→17:30)
[2017-10-31] MEDS ORDERED: Lidocaine PATCH 5%* 1 PATCH TRANSDERM SCH (09:00)
[2017-10-31] MEDS ORDERED: Aspirin EC TAB* 81 MG TAB.EC PO SCH (09:00)
[2017-10-31] MEDS ORDERED: Nicotine PATCH 14 MG/24 HR* PATCH TRANSDERM SCH (09:00)
[2017-10-31] MEDS ORDERED: Tiotropium CAP.INH* CAP.INH/18 MCG (USE ORDER SET !) INH SCH (09:00)
[2017-10-31] MEDS ORDERED: Mometasone/Formoter 200/5 MDI INH SCH (09:00)
[2017-10-31] MEDS ORDERED: Lisinopril TAB* 5 MG PO SCH (09:00)
[2017-10-31] MEDS ORDERED: Umeclidin 62.5 MDI(NF) 1 INH MDI INH SCH (09:00)
[2017-10-31] MEDS ORDERED: Sitagliptin (NF) 50 MG TAB PO SCH (09:00)
[2017-10-31] MEDS ORDERED: Senna TAB PO SCH (09:00)
[2017-10-31] MEDS ORDERED: risperiDONE TAB* 1 MG PO SCH (09:00)
[2017-10-31] MEDS ORDERED: Docusate CAP* 100 MG PO SCH ×2 (09:00)
--- NOTE | 2017-10-31 10:37 | RAD ---
HISTORY: TIA/CVA work up COMPARISONS: CT dated October 30, 2017, MRI dated November 19, 2012 TECHNIQUE: The following sequences were obtained of the head: Sagittal T1-weighted images, axial T2-weighted images, axial FLAIR images, axial susceptibility weighted images, axial T1-weighted images. Additionally, axial diffusion-weighted images were obtained with calculated apparent diffusion coefficients. FINDINGS: HEMORRHAGE/INFARCT: There is no hemorrhage or acute infarct. MASSES/SHIFT: There is no mass or shift. EXTRA-AXIAL SPACES/MENINGES: There are no extra-axial fluid collections. SULCI AND VENTRICLES: The sulci and ventricles are normal in size and position for the patient's stated age. CEREBRUM: There is minimal encephalomalacia of the superior frontal gyri bilaterally anteriorly best seen on axial image 25. BRAINSTEM: There are no focal parenchymal abnormalities. CEREBELLUM: There are no focal parenchymal abnormalities. The cerebellar tonsils are normal in size and position. SELLA: The sella is normal. PINEAL: The pineal region is clear. CP ANGLE/TEMPORAL BONES: The labyrinthine structures are grossly normal. VESSELS: Normal flow-voids are noted within the visualized vertebral vasculature. DIFFUSION ABNORMALITIES: There are no diffusion abnormalities. PARANASAL SINUSES/MASTOIDS: The paranasal sinuses are clear. ORBITS: The orbits are unremarkable. BONES AND SOFT TISSUE: No bone or soft tissue abnormalities are noted. OTHER: None IMPRESSION: MINIMAL BIFRONTAL ENCEPHALOMALACIA. NO RESTRICTED DIFFUSION TO SUGGEST ACUTE INFARCT.
[2017-10-31] MEDS: Gabapentin CAP(*) 300 MG PO SCH ×2 (10:55→15:02)
[2017-10-31] MEDS: busPIRone TAB* 15 MG PO SCH ×2 (10:57→15:02)
[2017-10-31] MEDS ORDERED: Tamsulosin CAP* 0.4 MG PO SCH (15:00)
[2017-10-31] MEDS ORDERED: Finasteride TAB* 5 MG PO SCH (15:00)
[2017-10-31 17:36] VITALS: BP 151/64
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
[2017-10-31] MEDS ORDERED: Lidocaine Patch REMOVE* 1 NOTE MISC PATCH OFF SCH (21:00)
[2017-10-31] MEDS ORDERED: Atorvastatin* 10 MG TAB PO SCH (21:00)
[2017-10-31] MEDS ORDERED: Nicotine Patch Removal NOTE PATCH OFF SCH (21:00)
[2017-10-31] MEDS ORDERED: hydrOXYzine HCL TAB* 50 MG PO SCH (21:00)
[2017-10-31] MEDS ORDERED: QUEtiapine TAB* 100 MG PO SCH (21:00)
--- NOTE | 2017-11-01 09:07 | DS ---
CC: Dr. Olivarez; Abdi Floyd NP * DISCHARGE SUMMARY: DATE OF ADMISSION: 10/30/17 DATE OF DISCHARGE: 10/31/17 PRIMARY CARE PROVIDER: Abdi Floyd NP DISCHARGE DIAGNOSIS: Transient recurring right-sided weakness and possibility of facial droop in the patient with history of traumatic brain injury under the influence of alcohol, likely related to influence of alcohol and traumatic brain injury with negative ischemic stroke workup. SECONDARY DIAGNOSES: 1. History of schizophrenia. 2. History of traumatic brain injury. 3. History of diabetes. 4. History of cognitive disorder. 5. History of paroxysmal tachycardia. 6. Hypertension. MEDICATIONS AT DISCHARGE: Include: 1. Aspirin 81 mg daily. 2. Lipitor 10 mg at bedtime. 3. BuSpar 15 mg 3 times a day. 4. Colace 100 mg daily. 5. Neurontin 300 mg 3 times a day. 6. Hydroxyzine 100 mg at bedtime. 7. Atrovent nebulizer on a p.r.n. basis. 8. Lidocaine patch 5% 1 patch transdermally to the affected area daily. 9. Prinivil 2.5 mg daily. 10. Claritin 10 mg daily. 11. Metformin 500 mg b.i.d. 12. Omeprazole 20 mg daily. 13. Seroquel 400 mg at bedtime. 14. Risperdal 1 mg b.i.d. 15. Senokot 2 tablets q.a.m. 16. Incruse Ellipta 1 inhalation daily. 17. Proscar 5 mg daily. 18. Robitussin 10 mg on a p.r.n. basis. 19. Nicotine patch on a p.r.n. basis. 20. Januvia 50 mg daily. 21. Flomax 0.4 mg daily. LABORATORY DATA: Studies performed during hospital stay included: The patient's lactic acid on presentation was 4.4 and later on was trending down to 3.2 on 10/31/17. Cholesterol profile showed triglycerides of 87, total cholesterol of 135, LDL of 82 and HDL of 35. Serum alcohol at admission was 203. Urinalysis was grossly unremarkable apart from +3 blood. C-reactive protein was 5.2. Head CT angiogram obtained on 10/30/17, impression: "Normal bifurcation of the middle cerebral arteries. Dominant left vertebral artery. No aneurysmal dilatation is noted. No branch occlusion identified." Hip and pelvis x-ray, impression: "No definite fracture of the hip noted." Brain MRI on 10/31/17, impression: "Minimal bifrontal encephalomalacia. No restricted diffusion to suggest acute infarct." Studies that are suggested to be obtained as outpatient include carotid artery Dopplers. CONSULTATIONS DURING HOSPITAL STAY: Included Dr. Olivarez from Neurology. HOSPITAL COURSE: Mark Flores is a 71-year-old male with history of schizophrenia, traumatic brain injury, who lives in a sheltered facility for mentally ill at [place]. He was noted at [place] down on the floor smelling of alcohol. When he was brought into the ED for evaluation, he was noted to have right-sided weakness and possibility of facial droop. At that point, he was admitted to rule out a CVA. Interestingly enough, after intravenous fluid hydration, his symptoms resolved. He does have asymmetrical face but no specific droop was noted by the time of discharge. His MRI was negative for stroke. His alcohol at presentation was 203. It appears the patient was evaluated by Neurology in the past and was noted to have transient right-sided weakness, likely related to his TBI that probably got worse when he was intoxicated. Dr. Olivarez saw the patient in consultation and recommended carotid Doppler studies. Unfortunately, we were not able to do carotid Doppler studies in a timely manner before the patient was discharged today and the patient wished to go home as early as possible. At this point, I recommend for the patient to have carotid Doppler studies obtained as an outpatient to rule out stenosis as recommended by Neurology. Please note that patient had an episode of urinary retention and a Hartman catheter was placed. He pulled on it and caused bleeding and due to that the Hartman catheter was discontinued and the patient was able to urinate without problems by the time of discharge after Hartman discontinuation. Nevertheless, the patient has complained of urinary frequency in the past and Flomax as well as Proscar was started and prescribed for the patient at discharge. PHYSICAL EXAMINATION: At the time of discharge, blood pressure of 153/57, heart rate of 80 and regular, respiratory rate 14, oxygen saturation 95% on room air, temperature 99.8. General: The patient is a very pleasant 71-year- old male who is in no acute distress, alert, awake, oriented x2. The patient is disoriented to correct date. HEENT: Head atraumatic, normocephalic. Eyes: Pupils are equal, reactive to light and accommodation. Oropharynx is clear. Mucosa moist. Neck: Supple. No JVD. No bruits bilaterally. Cardiovascular: Regular rate and rhythm. No murmur. Respiratory: Clear to auscultation bilaterally. Abdomen: Soft, nontender. Bowel sounds are present in all 4 quadrants. Extremities: There is no edema. Pulses are +2 bilaterally. No clubbing or cyanosis. Neuro evaluation: The patient's face is asymmetrical but that asymmetry corrects when the patient smiles. There is no definite facial droop. Motor strength is otherwise 5/5 in bilateral upper and lower extremities. The patient's gait is steady and he ambulates independently. His speech is clear. Psychiatric evaluation: The patient is pleasant, conversational, disoriented to date. On evaluation of the skin, the patient has a large ecchymotic area on his right proximal arm probably from the fall that he sustained when he was intoxicated. He also has several bruises on his bilateral lower extremities distally. Please note that this is a short summary of the patient's hospital stay. Please refer to further medical records for details. [id number]/[facility] #: [id number] MTDD
== END 2017-10-31 18:15 | disposition home or self-care (01) ==
LOC: ED 17:52 → MEDTELE 20:53 → INTOOBSV 10-31 10:51 → OBSVTOIN 10-31 10:51
PROVIDERS: ADMIT Hospitalist; ATTEND Internal Medicine
DX: R53.1 Weakness (principal); R29.810 Facial weakness; Z87.820 Personal history of traumatic brain injury; F20.9 Schizophrenia, unspecified; E11.40 Type 2 diabetes mellitus with diabetic neuropathy, unspecified; R00.0 Tachycardia, unspecified; I10 Essential (primary) hypertension; R41.82 Altered mental status, unspecified; F09 Unspecified mental disorder due to known physiological condition; F10.20 Alcohol dependence, uncomplicated; N40.0 Benign prostatic hyperplasia without lower urinary tract symptoms; Z79.84 Long term (current) use of oral hypoglycemic drugs; Z79.82 Long term (current) use of aspirin; Z79.899 Other long term (current) drug therapy; F17.210 Nicotine dependence, cigarettes, uncomplicated; Z88.8 Allergy status to other drugs, medicaments and biological substances
CPT/HCPCS: 36415; 70450; 70496; 70551; 80053; 80061; 80320; 81003; 81015; 83605; 84484; 85025; 85610; 85730; 86140; 87086; 93005; 93306; 96360; 96361; 96372; 99284; 99406; A9270-GY; G0378; G0480; G8978-GP-CI; G8979-GP-CI; G8980-GP-CI; J1644; Q9967

== ENCOUNTER 2017-11-01 23:55 | Emergency (ER) | payer MEDICARE, MEDICAID ==
--- NOTE | 2017-11-02 00:17 | ED ---
Substance Abuse/Use - HPI Summary HPI Summary: This is a 71 y/o man presenting by ambulance after being found on the floor by staff at his assisted living facility having consumed alcohol to excess. He denies any other complaints and does not think he suffered any injury. He was recently admitted to [facility] for suspected CVA but his symptoms resolved and his MRI was normal. It was felt that he had transient hemiparesis related to alcohol in concert with old TBI. - History Of Current Complaint Stated Complaint: ETOH, FALL Time Seen by Provider: 11/02/17 00:08 - Allergies/Home Medications Allergies/Adverse Reactions: Allergies Allergy/AdvReac Type Severity Reaction Status Date / Time bupropion [From Wellbutrin] Allergy Unknown Verified 08/18/17 23:46 Reaction Details PMH/Surg Hx/FS Hx/Imm Hx Endocrine/Hematology History: Reports: Hx Diabetes Denies: Hx Anticoagulant Therapy, Hx Blood Disorders, Hx Blood Transfusions, Hx Bone Marrow Disease, Hx Systemic Lupus Erythematosus, Hx Sickle Cell Disease , Hx Thyroid Disease, Hx Anemia, Hx Unexplained Bleeding, Other Endocrine/ Hematological Disorders Cardiovascular History: Reports: Hx Hypercholesterolemia - DYSLIPIDEMIA, Hx Hypertension, Hx Syncope, 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 Denies: Hx Aneurysm, Hx Angina, Hx Angioplasty, Hx Auto Implanted Cardiovert Defib, Hx Cardiac Arrest, Hx Cardiomegaly, Hx Congenital Heart Disease, Hx Congestive Heart Failure, Hx Coronary Artery Disease, Hx Deep Vein Thrombosis, Hx Embolism, Hx Hypotension, Hx Pacemaker/ICD, Hx Peripheral Vascular Disease, Hx Rheumatic Fever, Hx Valvular Heart Disease GI History: Reports: Hx Gastroesophageal Reflux Disease, Other GI Disorders - CHRONIC CONSTIPATION Denies: Hx Cirrhosis, Hx Crohn's Disease, Hx Diverticulosis, Hx Gall Bladder Disease, Hx Gastrointestinal Bleed, Hx Hiatal Hernia, Hx Irritable Bowel, Hx Jaundice, Hx Obstructive Bowel, Hx Ileostomy, Hx Pyloric Stenosis, Hx Ulcer History: Reports: Hx Benign Prostatic Hyperplasia Denies: Hx Acute Renal Failure, Hx Chronic Renal Failure, Hx Dialysis, Hx Kidney Infection, Hx Kidney Stones, Other Problems/Disorders Musculoskeletal History: Reports: Hx Arthritis, Hx Back Problems - SPINAL CORD INJURY, Hx Orthopedic Injury - TKA, Hx Osteoporosis, Other Musculoskeletal History - BELLS PALSY Denies: Hx Bursitis, Hx Congenital Bone Abnormalities, Hx Fibromyalgia, Hx Gout, Hx Scoliosis, Hx Tendonitis Sensory History: Reports: Hx Contacts or Glasses - reading glasses, Hx Vision Problem Denies: Hx Eye Injury, Hx Eye Prosthesis, Hx Glaucoma, Hx Macular Degeneration, Hx Hearing Aid, Hx Hearing Problem, Other Sensory Impairments Opthamlomology History: Reports: Hx Contacts or Glasses - reading glasses, Hx Vision Problem Denies: Hx Eye Injury, Hx Eye Prosthesis, Hx Glaucoma, Hx Macular Degeneration, Other Sensory Impairments Neurological History: Reports: Hx Nerve Disease, Hx Spinal Cord Injury, Other Neuro Impairments/Disorders - BELLS PALSY, COGNATIVE DISORDER Denies: Hx Dementia, Hx Developmental Delay, Hx Headaches, Hx Migraine, Hx Seizures, Hx Transient Ischemic Attacks (TIA) Psychiatric History: Reports: Hx Depression, Hx Schizophrenia - PARANOID, Hx of Violent Episodes Against Others, Hx Substance Abuse, Other Psychiatric Issues/ Disorders - COGNATIVE DISORDER Denies: Hx Anxiety, Hx Attention Deficit Hyperactivity Disorder, Hx Eating Disorder, Hx Panic Disorder, Hx Post Traumatic Stress Disorder, Hx Inpatient Treatment, Hx Community Mental Health Tx, Hx Bipolar Disorder, Hx Suicide Attempt - Surgical History Surgery Procedure, Year, and Place: CATARACTS, TOTAL LEFT KNEE REPLACEMENT, LUMBAR SURGERY Hx Anesthesia Reactions: No Infectious Disease History: Denies: Hx Clostridium Difficile, Hx Hepatitis, Hx Human Immunodeficiency Virus (HIV), Hx of Known/Suspected MRSA, Hx Shingles, Hx Tuberculosis, Hx Known/ Suspected VRE, Hx Known/Suspected VRSA, History Other Infectious Disease - Family History Known Family History: Positive: Unknown Negative: Renal Disease Family History: Pt is a poor historian. - Social History Alcohol Use: Daily Alcohol Amount: 1-2 beers/day Hx Substance Use: Yes Substance Use Type: Reports: Marijuana Substance Use Comment - Amount & Last Used: one joint a week Hx Tobacco Use: Yes Smoking Status (MU): Current Every Day Smoker Type: Cigarettes Have You Smoked in the Last Year: Yes Review of Systems Constitutional: Negative Eyes: Negative ENT: Negative Cardiovascular: Negative Respiratory: Negative Gastrointestinal: Negative Genitourinary: Negative All Other Systems Reviewed And Are Negative: Yes Physical Exam Triage Information Reviewed: Yes Appearance: Positive: Well-Appearing, Well-Nourished Skin: Positive: Warm, Skin Color Reflects Adequate Perfusion, Dry Head/Face: Positive: Normal Head/Face Inspection Eyes: Positive: Normal ENT: Positive: Normal ENT inspection Neck: Positive: Supple Respiratory/Lung Sounds: Positive: Clear to Auscultation, Breath Sounds Present Cardiovascular: Positive: Normal, RRR Abdomen Description: Positive: Nontender Bowel Sounds: Positive: Present Neurological: Positive: Normal, Sensory/Motor Intact, Alert, Oriented to Person Place, Time Psychiatric: Negative: Anxious Course/Dx - Diagnoses Provider Diagnoses: Alcohol intoxication Discharge - Sign-Out/Discharge Documenting (check all that apply): Patient Departure - Discharge Plan Condition: Improved Disposition: HOME Patient Education Materials: Abuse of Alcohol (ED) Referrals: No Primary Care Phys,NOPCP [Primary Care Provider] - - Billing Disposition and Condition Condition: IMPROVED Disposition: Home
[2017-11-02 06:53] VITALS: BP 174/81
--- OUTSIDE RECORDS SUMMARY | 2017-11-02 06:53 | XMS REPORT ---
:1945 External Reference #:[id number] Author Organization [facility] Address [address] [place] [address] Phone [phone] Care Team Providers Name Role Phone Abdi Floyd III, CASH APPLICATION CLERK-C Care Team Information Senior Bioinformatics Specialist Unavailable Payers Type Date Identification Numbers Payment Provider Subscriber Medicare Primary Effective: Policy Number: Medicare - Bswny Mark El 1996 [id number] Umd PayID: [id number] [address] [place] [address] Medigap Part B Policy Number: [id number] Medicaid After Medicare Mark El Group Name: 2 1 [address] PayID: [id number] [place] [address] Problems Description No Information Family History Date Family Member(s) Problem(s) Comments Mother Cancer, Brain Social History Type Date Description Comments Lives With Lives in [facility] [place] Sleep Reports normal sleep activity Work Status Not Currently Working Disabled since 1972 for chronic low back pain. 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 Lidocaine Patch, 07/25/ Active 30uni Apply daily M25.511 Jozef 5% 2016 ts to site of Olvin britt MD discomfort Incruse Ellipta 05/09/ Active Aerosol 62.5mcg/I 30uni 1 inhalation J44.9 Abdi 2016 nh ts once daily Everett III, CASH APPLICATION CLERK-C Lisinopril 12/30/ Active Tablets 2.5mg 90tab 1 tab by Abdi 2015 s mouth daily [place] III, CASH APPLICATION CLERK-C Discontinue 12/29/ Active Unable to Jozef Hydroxyzine 2015 give [place] Until Prior Auth MD yoko Is Approved as prescribed due to prior auth delays Meloxicam 10/21/ Active Tablets 15mg 30tab 1 by mouth M54.5 Key 2015 s every day Jessica Eid, R.D. Loratadine 08/30/ Active Tablets 10mg 30tab 1 by mouth Abdi 2015 s every day [place] III, CASH APPLICATION CLERK-C Ok To Delay 1 08/02/ Active if patient Abdi Dose Of 2015 is visibly Everett Medications intoxicated III, CASH APPLICATION CLERK-C Metformin HCL 06/11/ Active Tablets 500mg 60tab take one Jozef 2015 s tablet by Olvin mouth twice MD daily Benzonatate 05/14/ Active Capsules 100mg 30cap 1-2 capsules Abdi 2015 s by mouth Everett every 8 III, hours as CASH APPLICATION CLERK-C needed for cough. Do not suck on or chew capsule Allergy Relief / Active Tablets 10mg 30tab 1 tab by Abdi s mouth daily [place] III, CASH APPLICATION CLERK-C Hydrocortisone / Active Cream 1% apply 2 Unknown 0000 times daily Atorvastatin / Active Tablets 10mg 90tab 1 tab by Key Calcium s mouth at [place], bedtime Jessica, RAnaDAna Senna / Active Tablets 8.6mg 180ta 2 tablets by Abdi 0000 bs mouth daily Everett III, CASH APPLICATION CLERK-C Docqlace / Active Capsules 100mg 30cap 1 cap by Jozef 0000 s mouth daily MD Olvin Omeprazole / Active Capsules 20mg 30cap 1 cap by Jozef 0000 s mouth every Olvin morning MD Aspir-Low / Active Tablets 81mg 30tab 1 tab by Abdi 0000 DR s mouth daily [place] III, CASH APPLICATION CLERK-C Hydroxyzine / Active Capsules 100mg 30cap 1 cap by Abdi Pamoate 0000 s mouth at [place] bedtime. III, CASH APPLICATION CLERK-C Buspirone HCL / Active Tablets 15mg 90tab 1 tab by Abdi 0000 s mouth three [place] times daily III, CASH APPLICATION CLERK-C Quetiapine / Active Tablets 400mg 30tab 1 tab by Abdi Fumarate 0000 s mouth at Everett bedtime III, CASH APPLICATION CLERK-C Risperidone / Active Tablets 1mg 60tab 1 tab by Key 0000 s mouth twice freddy Eid M.D., R.D. Gabapentin / Active Capsules 300mg 90cap 1 cap by Abdi 0000 s mouth three [place] times daily III, CASH APPLICATION CLERK-C Spiriva Respimat 04/18/ Hx Aerosol 2.5mcg/Ac 4gm 2 J44.9 Abdi 2016 - t inhalations Everett 05/09/ once daily III, 2017 CASH APPLICATION CLERK-C Benadryl 12/29/ Hx Capsules 25mg 30cap 1-2 capsule Jozef 2015 - s po at [facility] 01/17/ bedtime - MD Bebeto 2015 Be Taken When Hydroxyzine Is Not Available Meloxicam 06/08/ Hx Tablets 7.5mg 30tab 1 by mouth M54.5 Abdi 2016 - s every day [place] 10/21/ III, 2016 CASH APPLICATION CLERK-C Ibuprofen 05/14/ Hx Tablets 400mg 90tab 1 tab by Z00.01 Abdi 2016 - s mouth as Everett 10/21/ needed every III, 2016 8 hours for CASH APPLICATION CLERK-C pain Lidoderm / Hx Patches 5% 30uni apply to Abdi 0000 - ts affected Everett 08/10/ area every III, 2017 evening. on CASH APPLICATION CLERK-C for 12 hours, off for 12 hours. Immunizations CPT Code Status Date Vaccine Lot # [id number] Given 05/15/2017 Zoster Vaccine [id number] Given 05/15/2017 Influenza Vaccine High Dose PF [id number] 85078 Given 02/22/2016 Influenza Vaccine High Dose PF [id number] 80196 Given 10/22/2015 Td Age 7 to adult (Tenivac, Decavac, Mass [id number]) 46364 Given 05/14/2015 Influenza Virus Vaccine, Quadrivalent, 3 Yr > [id number] Quad, Preserv Free 54497 Given 01/29/2014 Influenza Virus Vaccine, Quadrivalent, 3 Yr > Quad, Preserv Free 54558 Given 01/07/2013 Influenza Virus Vaccine, Quadrivalent, 3 Yr > Quad, Preserv Free 79837 Given 09/12/2012 Pneumovax 23 (PPSV23) 65+ years or high risk 2 to 64 year old 40799 Given 11/28/2011 Prevnar-13 Pneumococcal Conjugate Vaccine Vital Signs Date Vital Result Comment 10/12/2017 Weight 215.00 lb Weight in kg's 97.524 BP Systolic 122 mmHg BP Diastolic 80 mmHg Heart Rate 72 /min Body Temperature 97.1 F Respiratory Rate 20 /min O2 % BldC Oximetry 94 % 05/15/2017 Weight 214.00 lb Weight in kg's 97.070 BP Systolic 120 mmHg BP Diastolic 78 mmHg Heart Rate 74 /min Body Temperature 96.1 F Respiratory Rate 24 /min Height 72.5 inches 6'0.50" BMI (Body Mass Index) 28.6 kg/m2 O2 % BldC Oximetry 91 % 04/03/2017 Weight 205.00 lb Weight in kg's 92.988 BP Systolic 120 mmHg BP Diastolic 72 mmHg Heart Rate 70 /min Body Temperature 97.1 F Respiratory Rate 14 /min 02/06/2017 Weight 201.00 lb Weight in kg's 91.174 BP Systolic 120 mmHg BP Diastolic 70 mmHg Heart Rate 72 /min Body Temperature 97.6 F Respiratory Rate 20 /min 09/26/2016 Weight 199.00 lb Weight in kg's 90.266 BP Systolic 110 mmHg BP Diastolic 80 mmHg Heart Rate 68 /min Body Temperature 97.3 F Respiratory Rate 24 /min 07/25/2016 Weight 197.00 lb Weight in kg's 89.359 BP Systolic 100 mmHg BP Diastolic 70 mmHg Heart Rate 84 /min Body Temperature 97.7 F Respiratory Rate 20 /min 05/09/2016 Weight 211.00 lb Weight in kg's 95.710 BP Systolic 120 mmHg BP Diastolic 70 mmHg Heart Rate 80 /min Body Temperature 97.3 F Respiratory Rate 24 /min 04/18/2016 Weight 208.00 lb Weight in kg's 94.349 BP Systolic 100 mmHg BP Diastolic 68 mmHg Heart Rate 71 /min Body Temperature 97.5 F Respiratory Rate 24 /min O2 % BldC Oximetry 97 % 02/22/2016 Weight 204.00 lb Weight in kg's 92.534 BP Systolic 120 mmHg BP Diastolic 70 mmHg Heart Rate 72 /min Body Temperature 99.0 F Respiratory Rate 24 /min 10/22/2015 Weight 209.00 lb Weight in kg's 94.802 BP Systolic 120 mmHg BP Diastolic 67 mmHg Heart Rate 76 /min 06/08/2015 Weight 209.00 lb Weight in kg's 94.802 BP Systolic 118 mmHg BP Diastolic 70 mmHg Heart Rate 72 /min 05/14/2015 Weight 205.00 lb Weight in kg's 92.988 BP Systolic 110 mmHg BP Diastolic 64 mmHg Heart Rate 72 /min Body Temperature 98.9 F Height 72.5 inches 6'0.50" BMI (Body Mass Index) 27.4 kg/m2 O2 % BldC Oximetry 97 % Results Test Date Test Result H/L Range Note CBC Auto Diff 05/15/2017 White Blood Count 5.9 10^3/uL 3.5-10.8 Red Blood Count 4.72 10^6/uL 4.0-5.4 Hemoglobin 10.1 g/dL Low 14.0-18.0 Hematocrit 33 % Low 42-52 Mean Corpuscular Volume 69 fL Low 80-94 Mean Corpuscular Hemoglobin 21 pg Low 27-31 Mean Corpuscular HGB Conc 31 g/dL 31-36 Red Cell Distribution Width 19 % High 10.5-15 Platelet Count 291 10^3/uL 150-450 Mean Platelet Volume 8 um3 7.4-10.4 Abs Neutrophils 3.1 10^3/uL 1.5-7.7 Abs Lymphocytes 2.0 10^3/uL 1.0-4.8 Abs Monocytes 0.5 10^3/uL 0-0.8 Abs Eosinophils 0.2 10^3/uL 0-0.6 Abs Basophils 0 10^3/uL 0-0.2 Abs Nucleated RBC 0 10^3/uL Granulocyte % 53.6 % 38-83 Lymphocyte % 34.4 % 25-47 Monocyte % 8.7 % 1-9 Eosinophil % 2.7 % 0-6 Basophil % 0.6 % 0-2 Nucleated Red Blood Cells % 0.1 Comp Metabolic Panel 05/15/2017 Sodium 138 mmol/L 133-145 Potassium 4.9 mmol/L 3.5-5.0 Chloride 104 mmol/L 101-111 Co2 Carbon Dioxide 29 mmol/L 22-32 Anion Gap 5 mmol/L 2-11 Glucose 104 mg/dL High 70-100 Blood Urea Nitrogen 12 mg/dL 6-24 Creatinine 0.99 mg/dL 0.67-1.17 BUN/Creatinine Ratio 12.1 8-20 Calcium 9.1 mg/dL 8.6-10.3 Total Protein 6.3 g/dL Low 6.4-8.9 Albumin 3.7 g/dL 3.2-5.2 Globulin 2.6 g/dL 2-4 Albumin/Globulin Ratio 1.4 1-3 Total Bilirubin 0.30 mg/dL 0.2-1.0 Alkaline Phosphatase 63 U/L 34-104 Alt 5 U/L Low 7-52 Ast 9 U/L Low 13-39 Egfr Non- 74.5 >60 Egfr 95.8 >60 1 Laboratory test finding 05/15/2017 Hemoglobin A1c (Glyco HGB) 6.5 % High 4.0-5.6 2 Lipid Profile 05/15/2017 Triglycerides 194 mg/dL 3 (Trig/Chol/HDL) Cholesterol 155 mg/dL 4 HDL Cholesterol 43.0 mg/dL 5 LDL Cholesterol 73 mg/dL 6 Liver Function Panel 05/15/2017 Direct Bilirubin 0.10 mg/dL 0.03-0.18 Indirect Bilirubin 0.2 mg/dL Low 0.3-1.0 Laboratory test finding 05/15/2017 PSA Screening 0.741 ng/mL 0-4.000 7 Hepatitis C Antibody Nonreactive Nonreactive 8 Cell Morphology 05/15/2017 Microcytosis 2+ Hypochromasia 1+ Polychromasia 1+ Basophilic Stippling 1+ Laboratory test finding 05/15/2017 Pathologist Review (SEE NOTE) 9 Urine Microalbumin Random 05/15/2017 Ur Microalbumin (mg/L) 52.8 mg/L Urine Creatinine 50.89 mg/dL Urine Microalbumin/Creatinine 103.7 ug/mg High <31 CBC Auto Diff 12/29/2015 White Blood Count 7.6 10^3/uL 3.5-10.8 Red Blood Count 5.16 10^6/uL 4.0-5.4 Hemoglobin 15.0 g/dL 14.0-18.0 Hematocrit 45 % 42-52 Mean Corpuscular Volume 88 fL 80-94 Mean Corpuscular Hemoglobin 29 pg 27-31 Mean Corpuscular HGB Conc 33 g/dL 31-36 Red Cell Distribution Width 14 % 10.5-15 Platelet Count 178 10^3/uL 150-450 Mean Platelet Volume 9 um3 7.4-10.4 Abs Neutrophils 4.6 10^3/uL 1.5-7.7 Abs Lymphocytes 2.3 10^3/uL 1.0-4.8 Abs Monocytes 0.5 10^3/uL 0-0.8 Abs Eosinophils 0.2 10^3/uL 0-0.6 Abs Basophils 0 10^3/uL 0-0.2 Abs Nucleated RBC 0.01 10^3/uL Granulocyte % 60.3 % 38-83 Lymphocyte % 29.5 % 25-47 Monocyte % 7.1 % 1-9 Eosinophil % 2.8 % 0-6 Basophil % 0.3 % 0-2 Nucleated Red Blood Cells % 0.1 Lipid Profile (Trig/Chol/HDL) 12/29/2015 Triglycerides 147 mg/dL 10 Cholesterol 150 mg/dL 11 HDL Cholesterol 32.9 mg/dL 12 LDL Cholesterol 88 mg/dL 13 Laboratory test 12/29/2015 Hemoglobin A1c 6.2 % High Less than 6.0 14 finding (Glyco HGB) Comp Metabolic Panel 12/29/2015 Sodium 138 mmol/L 133-145 Potassium 4.4 mmol/L 3.5-5.0 Chloride 105 mmol/L 101-111 Co2 Carbon Dioxide 29 mmol/L 22-32 Anion Gap 4 mmol/L 2-11 Glucose 95 mg/dL 70-100 Blood Urea Nitrogen 11 mg/dL 6-24 Creatinine 1.02 mg/dL 0.67-1.17 BUN/Creatinine Ratio 10.8 8-20 Calcium 9.3 mg/dL 8.6-10.3 Total Protein 6.2 g/dL Low 6.4-8.9 Albumin 3.9 g/dL 3.2-5.2 Globulin 2.3 g/dL 2-4 Albumin/Globulin Ratio 1.7 1-3 Total Bilirubin 0.40 mg/dL 0.2-1.0 Alkaline Phosphatase 72 U/L 34-104 Alt 8 U/L 7-52 Ast 11 U/L Low 13-39 Egfr Non- 72.2 >60 Egfr 92.9 >60 15 Urine Microalbumin Random 12/29/2015 Urine Creatinine 78.83 mg/dL Ur Microalbumin (mg/L) 248.0 mg/L Urine Microalbumin/Creatinine 314.6 ug/mg High <31 Laboratory test finding 09/25/2015 Hemoglobin A1c 6.4 % High Less than 6.0 16 Lipid Panel 09/25/2015 Triglycerides 101 mg/dL 17 Cholesterol 147 mg/dL 18 HDL Cholesterol 35.9 mg/dL 19 LDL Cholesterol 91 mg/dL 20 CMP - Comprehensive Metabolic 09/25/2015 Sodium 138 mmol/L 133-145 Potassium 4.3 mmol/L 3.5-5.0 Chloride 108 mmol/L 101-111 Co2 Carbon Dioxide 24 mmol/L 22-32 Anion Gap 6 mmol/L 2-11 Glucose 112 mg/dL High 70-100 Blood Urea Nitrogen 14 mg/dL 6-24 Creatinine 1.04 mg/dL 0.67-1.17 BUN/Creatinine Ratio 13.5 8-20 Calcium 8.7 mg/dL 8.6-10.3 Total Protein 6.3 g/dL Low 6.4-8.9 Albumin 3.9 g/dL 3.2-5.2 Globulin 2.4 g/dL 2-4 Albumin/Globulin Ratio 1.6 1-3 Total Bilirubin 0.30 mg/dL 0.2-1.0 Alkaline Phosphatase 71 U/L 34-104 Alt 9 U/L 7-52 Ast 11 U/L Low 13-39 Egfr Non- 70.8 >60 Egfr 91.1 >60 21 CBC W/Auto Differential 09/25/2015 White Blood Count 6.4 10^3/uL 3.5- 10.8 Red Blood Count 4.98 10^6/uL 4.0-5.4 Hemoglobin 14.5 g/dL 14.0-18.0 Hematocrit 44 % 42-52 Mean Corpuscular Volume 89 fL 80-94 Mean Corpuscular Hemoglobin 29 pg 27-31 Mean Corpuscular HGB Conc 33 g/dL 31-36 Red Cell Distribution Width 15 % 10.5-15 Platelet Count 173 10^3/uL 150-450 Mean Platelet Volume 9 um3 7.4-10.4 Abs Neutrophils 3.4 10^3/uL 1.5-7.7 Abs Lymphocytes 2.3 10^3/uL 1.0-4.8 Abs Monocytes 0.5 10^3/uL 0-0.8 Abs Eosinophils 0.2 10^3/uL 0-0.6 Abs Basophils 0 10^3/uL 0-0.2 Abs Nucleated RBC 0.01 10^3/uL Granulocyte % 52.7 % 38-83 Lymphocyte % 35.9 % 25-47 Monocyte % 7.8 % 1-9 Eosinophil % 3.0 % 0-6 Basophil % 0.6 % 0-2 Nucleated Red Blood Cells % 0.1 Laboratory test finding 06/08/2015 Hemoglobin A1c 6.6 % High Less than 6.0 22 (Glyco HGB) CMP - Comprehensive 05/19/2015 Sodium 139 mmol/L 133-145 Metabolic Potassium 4.4 mmol/L 3.5-5.0 Chloride 108 mmol/L 101-111 Co2 Carbon Dioxide 25 mmol/L 22-32 Anion Gap 6 mmol/L 2-11 Glucose 125 mg/dL High 70-100 Blood Urea Nitrogen 13 mg/dL 6-24 Creatinine 1.10 mg/dL 0.67-1.17 BUN/Creatinine Ratio 11.8 8-20 Calcium 8.5 mg/dL Low 8.6-10.3 Total Protein 6.0 g/dL Low 6.4-8.9 Albumin 3.7 g/dL 3.2-5.2 Globulin 2.3 g/dL 2-4 Albumin/Globulin Ratio 1.6 1-3 Total Bilirubin 0.30 mg/dL 0.2-1.0 Alkaline Phosphatase 65 U/L 34-104 Alt 7 U/L 7-52 Ast 9 U/L Low 13-39 Egfr Non- 66.4 >60 Egfr 85.4 >60 23 CBC W/Auto Differential 05/19/2015 White Blood Count 7.3 10^3/uL 3.5- 10.8 Red Blood Count 5.06 10^6/uL 4.0-5.4 Hemoglobin 14.7 g/dL 14.0-18.0 Hematocrit 45 % 42-52 Mean Corpuscular Volume 88 fL 80-94 Mean Corpuscular Hemoglobin 29 pg 27-31 Mean Corpuscular HGB Conc 33 g/dL 31-36 Red Cell Distribution Width 14 % 10.5-15 Platelet Count 226 10^3/uL 150-450 Mean Platelet Volume 9 um3 7.4-10.4 Abs Neutrophils 4.1 10^3/uL 1.5-7.7 Abs Lymphocytes 2.4 10^3/uL 1.0-4.8 Abs Monocytes 0.6 10^3/uL 0-0.8 Abs Eosinophils 0.1 10^3/uL 0-0.6 Abs Basophils 0.1 10^3/uL 0-0.2 Abs Nucleated RBC 0.01 10^3/uL Granulocyte % 56.5 % 38-83 Lymphocyte % 33.3 % 25-47 Monocyte % 7.6 % 1-9 Eosinophil % 1.9 % 0-6 Basophil % 0.7 % 0-2 Nucleated Red Blood Cells % 0.1 Lipid Panel 05/19/2015 Triglycerides 95 mg/dL 24 Cholesterol 130 mg/dL 25 HDL Cholesterol 30.0 mg/dL 26 LDL Cholesterol 81 mg/dL 27 Laboratory test finding 05/19/2015 PSA Screening 0.881 ng/mL 0-4.000 28 1 Because ethnic data is not always readily available, this report includes an eGFR for both -Americans and non- Americans. The National Kidney Disease Education Program (NKDEP) does not endorse the use of the MDRD equation for patients that are not between the ages of 18 and 70, are , have extremes of body size, muscle mass, or nutritional status, or are non- or non-. According to the National Kidney Foundation, irrespective of diagnosis, the stage of the disease is based on the level of kidney function: Stage Description GFR(mL/min/1.73 m(2)) 1 Kidney damage with normal or decreased GFR 90 2 Kidney damage with mild decrease in GFR 60-89 3 Moderate decrease in GFR 30-59 4 Severe decrease in GFR 15-29 5 Kidney failure <15 (or dialysis) 2 Therapeutic target for the treatment of diabetes mellitus patients is <7% HBA1C, and in selective patients <6.0%. Please refer to [place] [employer] diabetic care guidelines for further information. 3 Desirable: <150 Borderline High: 150-199 High: 200-499 Very High: >500 4 Desirable: <200 Borderline High: 200-239 High: >239 5 Low: <40 Desirable: 40-60 High: >60 6 Desirable: <100 Near Optimal: 100-129 Borderline High: 130-159 High: 160-189 Very High: >189 7 Serum levels of PSA measured using the Andrez Crow DXI Hybritech immunoassay should not be interpreted as absolute evidence of the presence or absence of disease. The PSA value should be used in conjunction with other pertinent clinical diagnostic procedures. The values obtained with different assay methods or kits cannot be used interchangeably. 8 [id number] Microcytic anemia with red cell indices suggestive of iron deficiency. Additional studies as clinically warranted. Reviewed by Dr. Pan 10 Desirable <150 Borderline high 150-199 High 200-499 Very High >500 11 Desirable <200 Borderline high 200-239 High >239 12 Low <40 Desirable: 40-60 High: >60 13 Desirable: <100 mg/dL Near Optimal: 100-129 mg/dL Borderline High: 130-159 mg/dL High: 160-189 mg/dL Very High: >189 mg/dL 14 Therapeutic target for the treatment of diabetes Mellitus patients is <7% HBA1C, and in selective patients <6.0%.Please refer to [place] [employer] Diabetic care guidelines for further information. 15 Because ethnic data is not always readily available, this report includes an eGFR for both -Americans and non- Americans. The National Kidney Disease Education Program (NKDEP) does not endorse the use of the MDRD equation for patients that are not between the ages of 18 and 70, are , have extremes of body size, muscle mass, or nutritional status, or are non- or non-. According to the National Kidney Foundation, irrespective of diagnosis, the stage of the disease is based on the level of kidney function: Stage Description GFR(mL/min/1.73 m(2)) 1 Kidney damage with normal or decreased GFR 90 2 Kidney damage with mild decrease in GFR 60-89 3 Moderate decrease in GFR 30-59 4 Severe decrease in GFR 15-29 5 Kidney failure <15 (or dialysis) 16 Therapeutic target for the treatment of diabetes Mellitus patients is <7% HBA1C, and in selective patients <6.0%.Please refer to [place] [employer] Diabetic care guidelines for further information. 17 Desirable <150 Borderline high 150-199 High 200-499 Very High >500 18 Desirable <200 Borderline high 200-239 High >239 19 Low <40 Desirable: 40-60 High: >60 20 Desirable: <100 mg/dL Near Optimal: 100-129 mg/dL Borderline High: 130-159 mg/dL High: 160-189 mg/dL Very High: >189 mg/dL 21 Because ethnic data is not always readily available, this report includes an eGFR for both -Americans and non- Americans. The National Kidney Disease Education Program (NKDEP) does not endorse the use of the MDRD equation for patients that are not between the ages of 18 and 70, are , have extremes of body size, muscle mass, or nutritional status, or are non- or non-. According to the National Kidney Foundation, irrespective of diagnosis, the stage of the disease is based on the level of kidney function: Stage Description GFR(mL/min/1.73 m(2)) 1 Kidney damage with normal or decreased GFR 90 2 Kidney damage with mild decrease in GFR 60-89 3 Moderate decrease in GFR 30-59 4 Severe decrease in GFR 15-29 5 Kidney failure <15 (or dialysis) 22 Therapeutic target for the treatment of diabetes Mellitus patients is <7% HBA1C, and in selective patients <6.0%.Please refer to [place] [employer] Diabetic care guidelines for further information. 23 Because ethnic data is not always readily available, this report includes an eGFR for both -Americans and non- Americans. The National Kidney Disease Education Program (NKDEP) does not endorse the use of the MDRD equation for patients that are not between the ages of 18 and 70, are , have extremes of body size, muscle mass, or nutritional status, or are non- or non-. According to the National Kidney Foundation, irrespective of diagnosis, the stage of the disease is based on the level of kidney function: Stage Description GFR(mL/min/1.73 m(2)) 1 Kidney damage with normal or decreased GFR 90 2 Kidney damage with mild decrease in GFR 60-89 3 Moderate decrease in GFR 30-59 4 Severe decrease in GFR 15-29 5 Kidney failure <15 (or dialysis) 24 Desirable <150 Borderline high 150-199 High 200-499 Very High >500 25 Desirable <200 Borderline high 200-239 High >239 26 Low <40 Desirable: 40-60 High: >60 27 Desirable: <100 mg/dL Near Optimal: 100-129 mg/dL Borderline High: 130-159 mg/dL High: 160-189 mg/dL Very High: >189 mg/dL 28 Serum levels of PSA measured using the Andrez Blackburn DXI Hybritech immunoassay should not be interpreted as absolute evidence of the presence or absence of disease. The PSA value should be used in conjunction with other pertinent clinical diagnostic procedures. The values obtained with different assay methods or kits cannot be used interchangeably. Procedures Date CPT Code Description Status 05/15/2017 75964 Spirometry Completed 04/03/2017 01380 Spirometry Completed 04/18/2016 95223 Spirometry Completed 04/18/2016 68787 EKG, at Least 12 Leads w/Interpretation and Report Completed Encounters Type Date Location Provider CPT E/M Dx Office Visit 05/15/2017 1:30p Main Office Abdi Childerss III, CASH APPLICATION CLERK-C G0439 Z00.01 J44.9 E11.9 Z72.0 Z12.11 Z23 Office Visit 04/03/2017 2:45p Main Office Abdi Everett III, CASH APPLICATION CLERK-C 76212 J44.9 Z72.0 Office Visit 02/06/2017 10:30a Main Office Abdi Evreett III, CASH APPLICATION CLERK-C 41348 M25.562 Office Visit 09/26/2016 2:30p Main Office Abdi Everett III, CASH APPLICATION CLERK-C 81421 J44.9 M25.562 M25.511 Office Visit 07/25/2016 3:15p Main Office Abdi [place] III, CASH APPLICATION CLERK-C 98339 M25.562 M25.511 J44.9 Office Visit 05/09/2016 11:30a Main Office Abdi Everett III, CASH APPLICATION CLERK-C 68119 J44.9 Office Visit 04/18/2016 11:30a Main Office Abdi Eevrett III, CASH APPLICATION CLERK-C 74356 J44.9 Office Visit 02/22/2016 2:30p Main Office Abdi Everett III, CASH APPLICATION CLERK-C 54914 F10.920 W19.xxxA Z23 Office Visit 10/22/2015 10:00a Main Office Abdi [place] III, CASH APPLICATION CLERK-C 34677 M25.562 M54.5 M25.511 E11.9 Z23 Office Visit 06/08/2015 2:45p Main Office Abdi Floyd CARLA, CASH APPLICATION CLERK-C 76979 M54.5 M25.562 M25.511 E11.9 Office Visit 05/14/2015 1:30p Main Office Abdi Floyd III, CASH APPLICATION CLERK-C G0439 Z00.01 Z23 Plan of Care 10/12/2017 - Jozef Bah MDJ18.9 Pneumonia, unspecified organismComments: He seems to be recovering well after treatment for his pneumonia.N39.0 Urinary tract infection, site not specifiedComments:No more UTI symptoms. Done with antibiotics.E11.65 Type 2 diabetes mellitus with hyperglycemiaComments:In the hospital he had severe sepsis with elevated lactate and acute renal disease.With treatment and rehydration he very quickly recovered.I think it safe for him to go back on his metformin.
== END 2017-11-02 06:52 | disposition home or self-care (01) ==
LOC: ED 23:55
DX: F10.129 Alcohol abuse with intoxication, unspecified (principal); F17.210 Nicotine dependence, cigarettes, uncomplicated; Z88.8 Allergy status to other drugs, medicaments and biological substances
CPT/HCPCS: 99283

== ENCOUNTER 2017-12-08 17:46 | Emergency (ER) | payer MEDICARE, MEDICAID ==
[2017-12-08] MEDS ORDERED: NS 0.9% 1000 ML* 1,000 ML IV ONE (18:13)
--- NOTE | 2017-12-08 18:33 | RAD ---
HISTORY: weakness COMPARISONS: October 30, 2017 TECHNIQUE: Multiple contiguous axial CT scans were obtained of the head without intravenous contrast. FINDINGS: HEMORRHAGE/INFARCT: There is no hemorrhage or acute infarct. MASSES/SHIFT: There is no mass or shift. EXTRA-AXIAL SPACES: There are no extra-axial fluid collections. SULCI AND VENTRICLES: The sulci and ventricles are normal in size and position for the patient's stated age. CEREBRUM: There are no focal parenchymal abnormalities. BRAINSTEM: There are no focal parenchymal abnormalities. CEREBELLUM: There are no focal parenchymal abnormalities. VESSELS: The vessels are grossly normal. PARANASAL SINUSES: The paranasal sinuses are clear. ORBITS: The orbits are unremarkable. BONES AND SOFT TISSUE: No bone or soft tissue abnormalities are noted. OTHER: None IMPRESSION: NO ACUTE INTRACRANIAL PATHOLOGY.
--- NOTE | 2017-12-08 18:33 | RAD ---
HISTORY: weak COMPARISONS: October 06, 2015 VIEWS: 1: frontal portable view of the chest at 6:23 PM FINDINGS: LINES AND TUBES: None. CARDIOMEDIASTINAL SILHOUETTE: The cardiomediastinal silhouette is normal for portable technique. PLEURA: The costophrenic angles are sharp. No pleural abnormalities are noted. LUNG PARENCHYMA: The lungs are clear. ABDOMEN: The upper abdomen is clear. There is no subphrenic gas. BONES AND SOFT TISSUES: No bone or soft tissue abnormalities are noted. IMPRESSION: NO ACTIVE CARDIOPULMONARY DISEASE.
--- NOTE | 2017-12-08 18:36 | ED ---
Neurological HPI - HPI Summary HPI Summary: This is scribe Armando Attebbanner documenting for attending Adonay Winslow MD. Pt is a 72 y/o M presents to ED with neurological deficit onset ~1 month ago. Assoc. Sx: weakness, lightheaded, room spinning. Denies: Fever, bowel changes, CP, SOB. 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 PMHx: schizophrenia. FHx: N/C. I, Dr. Winslow, personally performed the services described in this documentation as scribed in my presence and it is both accurate and complete. - History of Current Complaint Chief Complaint: EDWeakness Stated Complaint: WEAKNESS Time Seen by Provider: 12/08/17 18:12 Hx Obtained From: Patient Onset/Duration: Sudden Onset, Started minutes ago Pain Intensity: 0 Pain Scale Used: 0-10 Numeric Character: Room Spinning, Lightheaded, Weak Associated Signs and Symptoms: Negative: Fever, Chest Pain, Shortness of Breath - Additional Pertinent History Primary Care Physician: [id number] - Allergy/Home Medications Allergies/Adverse Reactions: Allergies Allergy/AdvReac Type Severity Reaction Status Date / Time bupropion [From Wellbutrin] Allergy Unknown Verified 08/18/17 23:46 Reaction Details PMH/Surg Hx/FS Hx/Imm Hx Endocrine/Hematology History: Reports: Hx Diabetes Denies: Hx Anticoagulant Therapy, Hx Blood Disorders, Hx Blood Transfusions, Hx Bone Marrow Disease, Hx Systemic Lupus Erythematosus, Hx Sickle Cell Disease , Hx Thyroid Disease, Hx Anemia, Hx Unexplained Bleeding, Other Endocrine/ Hematological Disorders Cardiovascular History: Reports: Hx Hypercholesterolemia - DYSLIPIDEMIA, Hx Hypertension, Hx Syncope, 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 Denies: Hx Aneurysm, Hx Angina, Hx Angioplasty, Hx Auto Implanted Cardiovert Defib, Hx Cardiac Arrest, Hx Cardiomegaly, Hx Congenital Heart Disease, Hx Congestive Heart Failure, Hx Coronary Artery Disease, Hx Deep Vein Thrombosis, Hx Embolism, Hx Hypotension, Hx Pacemaker/ICD, Hx Peripheral Vascular Disease, Hx Rheumatic Fever, Hx Valvular Heart Disease GI History: Reports: Hx Gastroesophageal Reflux Disease, Other GI Disorders - CHRONIC CONSTIPATION Denies: Hx Cirrhosis, Hx Crohn's Disease, Hx Diverticulosis, Hx Gall Bladder Disease, Hx Gastrointestinal Bleed, Hx Hiatal Hernia, Hx Irritable Bowel, Hx Jaundice, Hx Obstructive Bowel, Hx Ileostomy, Hx Pyloric Stenosis, Hx Ulcer History: Reports: Hx Benign Prostatic Hyperplasia Denies: Hx Acute Renal Failure, Hx Chronic Renal Failure, Hx Dialysis, Hx Kidney Infection, Hx Kidney Stones, Other Problems/Disorders Musculoskeletal History: Reports: Hx Arthritis, Hx Back Problems - SPINAL CORD INJURY, Hx Orthopedic Injury - TKA, Hx Osteoporosis, Other Musculoskeletal History - BELLS PALSY Denies: Hx Bursitis, Hx Congenital Bone Abnormalities, Hx Fibromyalgia, Hx Gout, Hx Scoliosis, Hx Tendonitis Sensory History: Reports: Hx Contacts or Glasses - reading glasses, Hx Vision Problem Denies: Hx Eye Injury, Hx Eye Prosthesis, Hx Glaucoma, Hx Macular Degeneration, Hx Hearing Aid, Hx Hearing Problem, Other Sensory Impairments Opthamlomology History: Reports: Hx Contacts or Glasses - reading glasses, Hx Vision Problem Denies: Hx Eye Injury, Hx Eye Prosthesis, Hx Glaucoma, Hx Macular Degeneration, Other Sensory Impairments Neurological History: Reports: Hx Nerve Disease, Hx Spinal Cord Injury, Other Neuro Impairments/Disorders - BELLS PALSY, COGNATIVE DISORDER Denies: Hx Dementia, Hx Developmental Delay, Hx Headaches, Hx Migraine, Hx Seizures, Hx Transient Ischemic Attacks (TIA) Psychiatric History: Reports: Hx Depression, Hx Schizophrenia - PARANOID, Hx of Violent Episodes Against Others, Hx Substance Abuse, Other Psychiatric Issues/ Disorders - COGNATIVE DISORDER Denies: Hx Anxiety, Hx Attention Deficit Hyperactivity Disorder, Hx Eating Disorder, Hx Panic Disorder, Hx Post Traumatic Stress Disorder, Hx Inpatient Treatment, Hx Community Mental Health Tx, Hx Bipolar Disorder, Hx Suicide Attempt - Surgical History Surgery Procedure, Year, and Place: CATARACTS, TOTAL LEFT KNEE REPLACEMENT, LUMBAR SURGERY Hx Anesthesia Reactions: No Infectious Disease History: No Infectious Disease History: Denies: Hx Clostridium Difficile, Hx Hepatitis, Hx Human Immunodeficiency Virus (HIV), Hx of Known/Suspected MRSA, Hx Shingles, Hx Tuberculosis, Hx Known/ Suspected VRE, Hx Known/Suspected VRSA, History Other Infectious Disease, Traveled Outside the [place] in Last 30 Days - Family History Known Family History: Positive: Unknown Negative: Renal Disease Family History: Pt is a poor historian. - Social History Occupation: Retired Lives: Assisted Living Alcohol Use: Daily Alcohol Amount: 1-2 beers/day Hx Substance Use: Yes Substance Use Type: Reports: Marijuana Substance Use Comment - Amount & Last Used: one joint a week Hx Tobacco Use: Yes Smoking Status (MU): Light Every Day Tobacco Smoker Type: Cigarettes Have You Smoked in the Last Year: Yes Review of Systems Negative: Fever Negative: Chest Pain Negative: Shortness Of Breath Positive: Other - NEG: bowel changes. Neurological: Other - POS: Lightheaded, room spinning Positive: Weakness All Other Systems Reviewed And Are Negative: Yes Physical Exam - Summary Physical Exam Summary: Appearance: disheveled. Skin: warm, dry, reflects adequate perfusion Head/face: normal Eyes: EOMI, AMANDA ENT: normal Neck: supple, non-tender Respiratory: CTA, breath sounds present Cardiovascular: RRR, pulses symmetrical Abdomen: non-tender, soft Bowel Sounds: present Musculoskeletal: Limited in RUE Neuro: normal, sensory motor intact, A&Ox3 Triage Information Reviewed: Yes Vital Signs On Initial Exam: Initial Vitals Temp Pulse Resp BP Pulse Ox 97.9 F 82 16 139/73 92 12/08/17 17:49 12/08/17 17:49 12/08/17 17:49 12/08/17 17:49 12/08/17 17:49 Vital Signs Reviewed: Yes Diagnostics - Vital Signs Vital Signs Temp Pulse Resp BP Pulse Ox 12/08/17 18:00 82 92 12/08/17 17:58 81 131/65 93 12/08/17 17:49 97.9 F 82 16 139/73 92 - Laboratory Result Diagrams: 12/08/17 18:35 12/08/17 18:35 Lab Statement: Any lab studies that have been ordered have been reviewed, and results considered in the medical decision making process. - Radiology CXR Xray Interpretation: No Acute Changes - IMPRESSION: No active cardiopulmonary disease Radiology Interpretation Completed By: Radiologist - Report has been reviewed by provider - CT Brain CT CT Interpretation: No Acute Changes - IMPRESSION: no acute intracranial pathology CT Interpretation Completed By: Radiologist - Report has been reviewed by provider. - EKG 1830 Cardiac Rate: NL - 77 bpm EKG Rhythm: Sinus Rhythm ST Segment: Normal EKG Interpretation: nml axis Course/Dx - Course Course Of Treatment: Patient is well-known to me in the ER. He had tacky mucous membranes and was hydrated here. He typically has had alcohol in his system but today there is none. He is on multiple psychiatric medications. Following hydration he was up and moving about the ER with normal strength. He is appropriately oriented. There is no focal deficits and the negative head CT. He is discharged to follow up closely with his primary care physician. - Differential Dx Differential Diagnoses Neuro: Positive: Other - Medication reaction, generalized weakness, dehydration, metabolic abnormality, intracranial hemorrhage, infection - Diagnoses Provider Diagnoses: Weakness, Schizophrenia Discharge - Sign-Out/Discharge Documenting (check all that apply): Patient Departure - Discharge Plan Condition: Improved Disposition: HOME Patient Education Materials: Weakness (ED) Referrals: Abdi Floyd III FURNITURE SALESPERSON [Nurse Practitioner] - Additional Instructions: Stay well-hydrated. Take medications as prescribed. Follow-up with your doctor on Sunday for review of your medications. Medications may be causing these symptoms. Return if worse, new symptoms or other concerns. - Billing Disposition and Condition Condition: IMPROVED Disposition: Home Attestations Scribe Attestation: IDr. Winslow personally performed the services described in this documentation as scribed in my presence and it is both accurate and complete User Type: Provider
[2017-12-08 18:49] LABS: ABS Basophils 0.1 10^3/ul (0-0.2); ABS Eosinophils 0.1 10^3/ul (0-0.6); ABS Lymphocytes 1.6 10^3/ul (1.0-4.8); ABS Monocytes 0.6 10^3/ul (0-0.8); ABS Neutrophils 4.7 10^3/ul (1.5-7.7); ABS Nucleated RBC 0 10^3/ul; Hematocrit 34 % (42-52); Hemoglobin 10.8 g/dl (14.0-18.0); Lymphocyte % 22.7 % (25-47); Mean Corpuscular HGB Conc 32 g/dl (31-36); Mean Corpuscular Hemoglobin 23 pg (27-31); Mean Corpuscular Volume 72 fL (80-94); Mean Platelet Volume 7.8 um3 (7.4-10.4); Nucleated Red Blood Cells % 0; Platelet Count 258 10^3/ul (150-450); Red Blood Count 4.69 10^6/ul (4.00-5.40); Red Cell Distribution Width 20 % (10.5-15)
[2017-12-08 18:50] LABS: INR 0.85 (0.77-1.02)
--- OUTSIDE RECORDS SUMMARY | 2017-12-08 18:56 | XMS REPORT ---
:1945 External Reference #:[id number] Author Organization [facility] Address [address] [place] [address] [place] [address] Phone [phone] Care Team Providers Name Role Phone Azar Salomon MD Primary Care Physician Unavailable Payers Type Date Identification Numbers Payment Provider Subscriber Medicare Primary Policy Number: [id number] Medicare Joe T Nikko PayID: [id number] [address] [place] [address] [facility] Part B Policy Number: [id number] Medicaid Joe Melo Nikko PayID: [id number] [address] [place] [address] Problems Date Description Provider Status Onset: 05/12/2014 Paroxysmal supraventricular Antoinette Campos M.D. Active tachycardia Onset: 10/05/2017 Sepsis, unspecified organism Ida Lam NP Active Onset: 10/05/2017 Pneumonia due to Streptococcus Ida Lam NP Active Onset: 10/05/2017 Acute renal failure syndrome Ida Lam NP Active Onset: 10/05/2017 Hyperosmolality and or Ida Lam NP Active hypernatremia Onset: 10/05/2017 Acidosis Ida Lam NP Active Onset: 10/05/2017 Schizophrenia Ida Lam NP Active Onset: 10/05/2017 Cannabis abuse Ida Lam NP Active Onset: 10/05/2017 Type 2 diabetes mellitus Ida Lma NP Active Onset: 10/06/2017 Pneumonia Ida Lam NP Active Onset: 10/08/2017 Urinary tract infectious disease Vinayak Harrison MD Onset: 10/08/2017 Sepsis due to Streptococcus Guanakito Ramon, Active pneumoniae Family History Date Family Member(s) Problem(s) Comments General Cancer Father due to Infections in lower extremities () Mother due to Cancer () Siblings 2 2 sisters Social History Type Date Description Comments Marital Status Single Lives With Alone Occupation Retired Cigarette Use Former Cigarette Smoker Has been smoking since he was 12 years old ETOH Use Occasionally consumes alcohol Smoking Patient is a current smoker, 4-5 cigarettes per day smokes every day Recreational Drug Use Denies Drug Use Daily Caffeine Consumes on average 3 cups of regular coffee per day Exercise Type/Frequency Exercises sporadically Allergies, Adverse Reactions, Alerts Date Description Reaction Status Severity Comments 06/17/2013 NKDA active 06/16/2014 Dog Dander active 06/16/2014 Cat Dander active 06/16/2014 Dust Mites active Medications Medication Date Status Form Strength Qnty SIG Indications Ordering Provider Nebulizer 06/12 Active Kit 1unit 1 unit J44.9 Sandy Kit/Tubing/Mout /2017 s nebulization MD Jonathan hpiece every 4- 6 hours as needed Duoneb 06/12 Active Solution 0.5-2.5(3 540ml 1 unit nebl J44.9 Tierney /2018 )mg/3ML every 12 Calderon, hours dx code JUAN, RN, j44.9 last [facility]- seen 06/12/2017 Gabapentin Active Capsules 300mg 90cap 1 po tid Unknown / s Risperidone Active Tablets 1mg 30tab take one Moffat, / s tablet by windy Askew at MD bedtime Docqlace Active Capsules 100mg 30cap take one Moffat, s capsule by windy Askew one MD time daily Loratadine Active Tablets 10mg 30tab 1 po qd Moffat, s MD Azar Senna Lax Active Tablets 8.6mg 60tab prn Moffat, s MD Azar Buspirone HCL Active Tablets 15mg 60tab 1 po tid Moffat, s MD Azar Omeprazole Active Capsules 20mg 90cap 1 po qd Moffat, /0000 DR s MD Azar Atorvastatin Active Tablets 10mg 90tab 1 po qd Moffat, Calcium s MD Azar Aspirin Active Tablets 81mg 1 po qd Moffat, MD Azar Quetiapine Active 400mg 1 tab po qd Moffat, Fumarate MD Azar Hydroxyzine Active Capsules 100mg 30cap 1 po qhs Moffat, Pamoate 0000 s MD Azar Lidoderm Active Patches 5% 30uni applied to Moffat, ts affected area anyi Askew MD evening; on for 12 hours, off for 12 hours. Metformin HCL Active Tablets 500mg 1 by mouth Unknown twice a day Meloxicam Active Tablets 15mg 1 by mouth Unknown every day Lisinopril Active Tablets 2.5mg 1 by mouth Unknown every day Incruse Ellipta Active Aerosol 62.5mcg/I inhale 1 puff nh by mouth every day Tramadol HCL Hx Tablets 50mg 20tab 1 tab po q 6 Unknown s hrsprn for - pain 04/23 Quetiapine Hx Tablets 400mg 1 tab po qd Moffat, Fumarate Hattie Askew MD 06/16 Hydrocortisone Hx Cream 1% apply to Moffat, affected area Hattie Asekw twice daily 06/11 Medications Administered in Office Medication Date Status Form Strength Qnty SIG Indications Ordering Provider Depomedrol Administered Injection Dirk Berna, 80MG 012 M.D. Vital Signs Date Vital Result Comment 11/19/2017 Height 73 inches 6'1" Heart Rate 88 /min Respiratory Rate 20 /min Pain Level 7 06/12/2017 Height 73 inches 6'1" Weight 212.00 lb Heart Rate 72 /min BP Systolic Sitting 112 mmHg BP Diastolic Sitting 66 mmHg Respiratory Rate 14 /min O2 % BldC Oximetry 96 % BMI (Body Mass Index) 28.0 kg/m2 Neck Circumference in inches 17 02/12/2017 Height 73 inches 6'1" Weight 201.00 lb Heart Rate 66 /min BP Systolic 122 mmHg BP Diastolic 70 mmHg Respiratory Rate 18 /min Pain Level 10 BMI (Body Mass Index) 26.5 kg/m2 06/16/2014 Height 73.75 inches 6'1.75" Weight 199.00 lb Heart Rate 68 /min BP Systolic Sitting 108 mmHg Ra reg cuff BP Diastolic Sitting 78 mmHg Ra reg cuff BP Systolic Standing 98 mmHg Ra BP Diastolic Standing 76 mmHg Ra Respiratory Rate 16 /min BMI (Body Mass Index) 25.7 kg/m2 06/17/2013 Height 73.75 inches 6'1.75" Weight 223.00 lb without shoes Heart Rate 8084 /min sit and stand HR reg BP Systolic Sitting 110 mmHg LA reg cuff BP Diastolic Sitting 80 mmHg LA reg cuff BP Systolic Standing 110 mmHg LA reg cuff BP Diastolic Standing 82 mmHg LA reg cuff Respiratory Rate 17 /min BMI (Body Mass Index) 28.8 kg/m2 Results Test Date Test Result H/L Range Note Xray 06/20/2017 CT Lung Screening-Low Dose <pending> Electrolytes 05/12/2014 Sodium 137 mmol/L 133-145 Potassium 4.3 mmol/L 3.5-5.0 Chloride 101 mmol/L 101-111 Co2 Carbon Dioxide 27 mmol/L 22-32 Anion Gap 9 mmol/L 2-11 CBC Auto Diff 05/12/2014 White Blood Count 13.7 10^3/uL High 4.8-10.8 Red Blood Count 4.74 10^6/uL 4.0-5.4 Hemoglobin 13.5 g/dL Low 14.0-18.0 Hematocrit 41 % Low 42-52 Mean Corpuscular Volume 86 fL 80-94 Mean Corpuscular Hemoglobin 28 pg 27-31 Mean Corpuscular HGB Conc 33 g/dL 31-36 Red Cell Distribution Width 15 % 10.5-15 Platelet Count 181 10^3/uL 150-450 Mean Platelet Volume 9 um3 7.4-10.4 Abs Neutrophils 10.9 10^3/uL High 1.5-7.7 Abs Lymphocytes 2.0 10^3/uL 1.0-4.8 Abs Monocytes 0.8 10^3/uL 0-0.8 Abs Eosinophils 0 10^3/uL 0-0.6 Abs Basophils 0 10^3/uL 0-0.2 Abs Nucleated RBC 0.01 10^3/uL Granulocyte % 79.2 % 38-83 Lymphocyte % 14.6 % Low 25-47 Monocyte % 5.9 % 1-9 Eosinophil % 0.1 % 0-6 Basophil % 0.2 % 0-2 Nucleated Red Blood Cells % 0.1 Urinalysis Profile 05/12/2014 Urine Color Sandy Urine Appearance Cloudy Urine Specific [place] 1.023 1.010-1.030 Urine pH 6.0 5-9 Urine Urobilinogen Positive Negative Urine Ketones Trace Negative Urine Protein 2+(100 mg/dL) Negative Urine Leukocytes 2+ Negative Urine Blood 1+ Negative Urine Nitrite Negative Negative Urine Bilirubin Negative Negative Urine Glucose Negative Negative Urine White Blood Cell 3+(>20/hpf) Absent Urine Red Blood Cell 1+(3-5/hpf) Absent Urine Bacteria 3+ Absent Urine Culture And Sensitivities 05/12/2014 Urine Culture (SEE NOTE) 1 Laboratory test finding 05/12/2014 Magnesium 2.0 mg/dL 1.9-2.7 TSH (Thyroid Stimulating Horm) 0.76 IU/mL 0.34-5.60 1 RUN DATE: 05/15/14 [facility] LAB LIVE PAGE 1 RUN TIME: [address] [place] [id number] Specimen Inquiry Name: JOE EL : [address]: Antoinette Campos MD Acct: [id number] Unit: [id number] AGE: 68 Location: [facility] Re05/12/14 SEX: M Status: REG REF SPEC: [id number] XIN: 05/12/[address] [facility] [address]: Antoinette Campos MD REQ: [id number] RECD: 05/12/14 STATUS: MARISABEL WILLOUGHBY DR: Azar Salomon MD _ SOURCE: URINE SPDESC: ORDERED: Urine Culture QUERIES: Provider Requisition # [id number] Urine Source: Clean Catch Procedure Result Verified Site Urine Culture Final 05/15/14- 0921 ML Organism 1 AEROCOCCUS SPECIES Crocker Count >100,000 (Many) CFU/ML Aerococcus isolates are too fastidious for routine susceptibility studies. Aerococcus are usually susceptible to penicillin, amoxicillin, piperacillin, cefipime, rifampin and vancomycin. Moderate to good activity occurs with the quinolones, tetracyclines and erythromycin. (Renay's Color Declo and Textbook of Diagnostic Microbiology 6th Ed. 2006, p. 705-6.) END OF REPORT * ML=Testing performed at Main Lab DEPARTMENT OF PATHOLOGY, [address] [place] [address] Eric Pan M.D. Director [facility] # [id number] Procedures Date CPT Code Description Status 10/31/2017 99650 ECHO Transthorasic Realtime 2D W Doppler & Color Flow Completed Hosp 06/16/2014 45301 EKG Tracing & Interpretation Completed 05/12/2014 05340 Interrogation Device Eval,Implantable Loop Recorder Completed System 06/17/2013 08823 Interrogation Device Eval,Implantable Loop Recorder Completed System 01/11/2013 99909 EKG, Interpretation Only Completed 12/06/2012 85265 Implant Cardiac Loop Recorder Completed 12/01/2012 05277 Stress Test Supervsn W/Out I/R Completed 12/01/2012 17036 Stress Test Supervsn W/Out I/R Completed 12/01/2012 12928 Treadmill Interp/Report Only Completed 12/01/2012 12582 Treadmill Interp/Report Only Completed 11/30/2012 40097 EKG, Interpretation Only Completed 11/20/2012 25669 EEG Recording Awake & Asleep Completed 11/20/2012 93769 ECHO Transthorasic Realtime 2D W Doppler & Color Flow Completed Hosp 11/19/2012 09660 EKG, Interpretation Only Completed 06/28/2011 91560 Xray Knee 3 Views Completed 06/28/2011 79433 Rad Exam; Knee, Ap&L Completed 06/28/2011 14359 Inject/Drain Joint/Bursa Major W/O US Completed Encounters Type Date Location Provider CPT E/M Dx [facility]2017 [facility] Shellie Bass, [address] G81.91 3:48p Marquita Lopez F10.129 F20.9 Office Visit 10/30/2017 3:48p [facility] Minor Johnson 54210 F10.129 Assoc, Marquita SOLIZ M.D. F20.9 E11.40 I10 Office Visit 10/08/2017 2:43p [facility] , Guaankito Burrell [address] A40.3 Hospitalpatrick Ramon MD N17.9 N39.0 E87.2 F20.9 Office Visit 10/07/2017 2:42p [facility], [place] Burrell [address] N17.9 Marquita Ramon MD J18.9 F20.9 E87.2 Office Visit 10/06/2017 2:41p [facility], Ida Garcesney, 71855 J18.9 Hospitalists SNOW REMOVER N17.9 E87.2 F20.9 Office Visit 10/05/2017 2:41p [facility], Ida Garcesney, 46250 A41.9 Hospitalists SNOW REMOVER J18.1 N17.9 E87.0 E87.2 F20.9 F12.90 E11.9 Office Visit 06/12/2017 2:00p [facility] [address] J44.9 [facility] F17.210 Z12.2 Office Visit 02/12/2017 1:15p [facility] Carter Craig, 31654 Z96.652 Of [facility] M25.562 Office Visit 06/16/2014 3:30p [facility] Antoinette Campos M.D. 88091 427.0 [facility] Office Visit 06/17/2013 11:15a [facility] Antoinette Campos M.D. 05673 780.4 Steam Finisher Office Visit 01/11/2013 9:45a [facility], Lionel Landaverde M.D. 71304 595.0 Hospitalists 295.40 250.00 357.2 Office Visit 01/10/2013 9:45a [facility], Rico Murillo 68326 595.0 Hospitalists N.P. 295.40 250.00 357.2 Office Visit 12/02/2012 3:26p [facility], Jonas Ficnh 61016 427.81 Hospitalists Jessica Mccann 295.90 305.1 Office Visit 12/01/2012 12:22p [facility] Antoinette Campos M.D. 22779 780.2 [facility] 780.97 780.79 Office Visit 12/01/2012 3:26p [facility], Jonas Finch 09957 427.81 Hospitalists Jessica Mccann 295.90 305.1 Office Visit 11/30/2012 3:25p [facility], Jonas Finch 09885 427.81 Hospitalists Jessica Mccann 295.90 305.1 Office Visit 11/29/2012 3:25p [facility] R[facility], 35584 427.81 Assoc,pc Hospitalists M.DAna Hospitalist 295.90 305.1 Office Visit 11/21/2012 7:44a [facility] Assoc,pc Armando Matthewsald, 29132 780.2 Hospitalists N.P. 250.00 V15.52 Office Visit 11/20/2012 12:58p [facility] Emeli Rivera M.D. 79586 780.2 [facility] Office Visit 11/19/2012 7:26a [facility]oc, Jazmin Milan, N.P. 70600 780.2 Hospitalists 250.00 Office Visit 09/27/2011 9:15a [facility] M.D. 01648 715.96 [facility] 716.96 Office Visit 06/28/2011 10:45a [facility] M.D. 73440 715.96 C.M.A. 716.96 Plan of Care Future Appointment(s):12/31/2017 2:45 pm - Carter Craig MD at [facility]11/19/2017 - Carter Craig MDZ96.652 Presence of left artificial knee jointNew Therapy:Physical TherapyFollow up: Follow up: 6 nilgcV59.562 Pain in left kneeNew Xrays:Knee 3 Views LT
[2017-12-08 19:07] LABS: EGFR Non-African American 91.1 (>60)
[2017-12-08 19:57] LABS: Urine Appearance Cloudy; Urine Blood 1+ (Negative); Urine Color Yellow; Urine Ketones Negative (Negative); Urine Protein Negative (Negative); Urine Red Blood Cell 2+(6-10/hpf) (Absent); Urine Specific Gravity 1.008 (1.010-1.030); Urine Urobilinogen Negative (Negative); Urine White Blood Cell 3+(>20/hpf) (Absent)
[2017-12-08 20:09] VITALS: BP 155/81
[2017-12-08] MEDS ORDERED: Ciprofloxacin TAB* 500 MG PO ONE (20:18)
--- NOTE | 2017-12-12 06:45 | PN ---
Progress Note - Progress Note Date of Service: 12/12/17 Note: patient urine culture grew enteroccocus >100,000. patient placed on cipro which final culture to. no further action required.
== END 2017-12-08 20:08 | disposition home or self-care (01) ==
LOC: ED 17:46
DX: R53.1 Weakness (principal); F20.9 Schizophrenia, unspecified; Z87.440 Personal history of urinary (tract) infections; Z96.652 Presence of left artificial knee joint; Z88.8 Allergy status to other drugs, medicaments and biological substances; F17.210 Nicotine dependence, cigarettes, uncomplicated
CPT/HCPCS: 36415; 70450; 71045; 80053; 80320; 81003; 81015; 83605; 83735; 83880; 84443; 84484; 85025; 85610; 86140; 87077; 87086; 87186; 93005; 96360; 99283; A9270-GY; G0480

== ENCOUNTER 2018-11-15 16:51 | Emergency (ER) | payer MEDICARE, MEDICAID ==
[2018-11-15] MEDS ORDERED: Albuterol 2.5 MG/3 ML NEB.SOL* (0.083%) INH ONE (17:13)
--- NOTE | 2018-11-15 17:18 | ED ---
HPI Chest Pain - HPI Summary HPI Summary: This patient is a 72 year old M presenting to [facility] with a chief complaint of CP described as tightness and is located on his L anterior side. He states that he smoked marijuana and began aching all over and became SOB. He also stated that he has generalized weakness as well. He also stated a non-productive cough. Pt denies any fever, chills, erythema of eyes, sore throat, abdominal pain, N/V, dysuria, hematuria, myalgia, edema, rash, or dizziness. The symptoms are aggravated by nothing and alleviated by nothing The pt has a PMHx of smoking tobacco and he has diabetes. - History of Current Complaint Chief Complaint: EDShortnessOfBreath Time Seen by Provider: 11/15/18 16:52 Hx Obtained From: Patient Onset/Duration: Started Minutes Ago - SOLUTION SPEC, Resolved Initial Severity: Mild Current Severity: None Pain Intensity: 0 Pain Scale Used: 0-10 Numeric Chest Pain Location: Left Anterior Chest Pain Radiates: No Aggravating Factor(s): Nothing Alleviating Factor(s): Nothing Associated Signs and Symptoms: Positive: Chest Pain, Shortness of Breath, Nonproductive Cough, Other: - POSITIVE: myalgia. Negative: Dizziness, Fever, Chills, Nausea, Abdominal Pain, Vomiting, Edema - Additional Pertinent History Primary Care Physician: [id number] - Allergy/Home Medications Allergies/Adverse Reactions: Allergies Allergy/AdvReac Type Severity Reaction Status Date / Time bupropion [From Wellbutrin] Allergy Unknown Verified 11/15/18 17:03 Reaction Details PMH/Surg Hx/FS Hx/Imm Hx Previously Healthy: Yes Endocrine/Hematology History: Reports: Hx Diabetes Denies: Hx Anticoagulant Therapy, Hx Blood Disorders, Hx Blood Transfusions, Hx Bone Marrow Disease, Hx Systemic Lupus Erythematosus, Hx Sickle Cell Disease , Hx Thyroid Disease, Hx Anemia, Hx Unexplained Bleeding, Other Endocrine/ Hematological Disorders Cardiovascular History: Reports: Hx Hypercholesterolemia - DYSLIPIDEMIA, Hx Hypertension, Hx Syncope, 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 Denies: Hx Aneurysm, Hx Angina, Hx Angioplasty, Hx Auto Implanted Cardiovert Defib, Hx Cardiac Arrest, Hx Cardiomegaly, Hx Congenital Heart Disease, Hx Congestive Heart Failure, Hx Coronary Artery Disease, Hx Deep Vein Thrombosis, Hx Embolism, Hx Hypotension, Hx Pacemaker/ICD, Hx Peripheral Vascular Disease, Hx Rheumatic Fever, Hx Valvular Heart Disease GI History: Reports: Hx Gastroesophageal Reflux Disease, Other GI Disorders - CHRONIC CONSTIPATION Denies: Hx Cirrhosis, Hx Crohn's Disease, Hx Diverticulosis, Hx Gall Bladder Disease, Hx Gastrointestinal Bleed, Hx Hiatal Hernia, Hx Irritable Bowel, Hx Jaundice, Hx Obstructive Bowel, Hx Ileostomy, Hx Pyloric Stenosis, Hx Ulcer History: Reports: Hx Benign Prostatic Hyperplasia Denies: Hx Acute Renal Failure, Hx Chronic Renal Failure, Hx Dialysis, Hx Kidney Infection, Hx Kidney Stones, Other Problems/Disorders Musculoskeletal History: Reports: Hx Arthritis, Hx Back Problems - SPINAL CORD INJURY, Hx Orthopedic Injury - TKA, Hx Osteoporosis, Other Musculoskeletal History - BELLS PALSY Denies: Hx Bursitis, Hx Congenital Bone Abnormalities, Hx Fibromyalgia, Hx Gout, Hx Scoliosis, Hx Tendonitis Sensory History: Reports: Hx Contacts or Glasses - reading glasses, Hx Vision Problem Denies: Hx Eye Injury, Hx Eye Prosthesis, Hx Glaucoma, Hx Macular Degeneration, Hx Hearing Aid, Hx Hearing Problem, Other Sensory Impairments Opthamlomology History: Reports: Hx Contacts or Glasses - reading glasses, Hx Vision Problem Denies: Hx Eye Injury, Hx Eye Prosthesis, Hx Glaucoma, Hx Macular Degeneration, Other Sensory Impairments Neurological History: Reports: Hx Nerve Disease, Hx Spinal Cord Injury, Other Neuro Impairments/Disorders - BELLS PALSY, COGNATIVE DISORDER Denies: Hx Dementia, Hx Developmental Delay, Hx Headaches, Hx Migraine, Hx Seizures, Hx Transient Ischemic Attacks (TIA) Psychiatric History: Reports: Hx Depression, Hx Schizophrenia - PARANOID, Hx of Violent Episodes Against Others, Hx Substance Abuse, Other Psychiatric Issues/ Disorders - COGNATIVE DISORDER Denies: Hx Anxiety, Hx Attention Deficit Hyperactivity Disorder, Hx Eating Disorder, Hx Panic Disorder, Hx Post Traumatic Stress Disorder, Hx Inpatient Treatment, Hx Community Mental Health Tx, Hx Bipolar Disorder, Hx Suicide Attempt - Surgical History Surgery Procedure, Year, and Place: CATARACTS, TOTAL LEFT KNEE REPLACEMENT, LUMBAR SURGERY Hx Anesthesia Reactions: No Infectious Disease History: No Infectious Disease History: Denies: Hx Clostridium Difficile, Hx Hepatitis, Hx Human Immunodeficiency Virus (HIV), Hx of Known/Suspected MRSA, Hx Shingles, Hx Tuberculosis, Hx Known/ Suspected VRE, Hx Known/Suspected VRSA, History Other Infectious Disease, Traveled Outside the [place] in Last 30 Days - Family History Known Family History: Positive: Unknown Negative: Renal Disease Family History: Pt is a poor historian. - Social History Alcohol Use: None Alcohol Amount: 1-2 beers/day Hx Substance Use: Yes Substance Use Type: Reports: Marijuana Substance Use Comment - Amount & Last Used: one joint a week Hx Tobacco Use: Yes Smoking Status (MU): Light Every Day Tobacco Smoker Type: Cigarettes Have You Smoked in the Last Year: Yes Review of Systems Negative: Fever, Chills Negative: Erythema Negative: Sore Throat Positive: Chest Pain Positive: Shortness Of Breath, Cough - nonproductive Negative: Abdominal Pain, Vomiting, Nausea Negative: dysuria, hematuria Positive: Myalgia. Negative: Edema Negative: Rash Neurological: Negative - dizziness All Other Systems Reviewed And Are Negative: Yes Physical Exam - Summary Physical Exam Summary: Constitutional: Well-developed, Well-nourished, Alert. (-) Distressed, poor historian Skin: Warm, Dry HENT: Normocephalic; Atraumatic, Neck: Musculoskeletal ROM normal neck. (-) JVD, (-) Stridor, (-) Tracheal deviation Cardio: Rhythm regular, rate normal, Heart sounds normal; Intact distal pulses; The pedal pulses are 2+ and symmetric. Radial pulses are 2+ and symmetric. (-) Murmur Pulmonary/Chest wall: Effort normal. (-) Respiratory distress, (-) Wheezes, (-) Rales Abd: Soft, (-) tenderness, (-) Distension, (-) Guarding, (-) Rebound Musculoskeletal: (-) Edema Lymph: (-) Cervical adenopathy Neuro: Alert, Oriented x2. Not oriented to day. Psych: Mood and affect Normal Triage Information Reviewed: Yes Vital Signs On Initial Exam: Initial Vitals Temp Pulse Resp BP Pulse Ox 98.4 F 71 18 133/71 93 11/15/18 16:59 11/15/18 16:59 11/15/18 16:59 11/15/18 16:59 11/15/18 16:59 Vital Signs Reviewed: Yes Diagnostics - Vital Signs Vital Signs Temp Pulse Resp BP Pulse Ox 11/15/18 16:59 98.4 F 71 18 133/71 93 - Laboratory Result Diagrams: 11/15/18 17:48 11/15/18 17:48 Lab Statement: Any lab studies that have been ordered have been reviewed, and results considered in the medical decision making process. - Radiology CXR Radiology Interpretation Completed By: Radiologist Summary of Radiographic Findings: No active pulmonary diseases are present. ED physician has reviewed this report. - EKG 1731 Cardiac Rate: NL - 68 BPM EKG Rhythm: Sinus Rhythm Ectopy: None Summary of EKG Findings: This pt has a NSR at [address] elevations in the anterior leads, no STEMI. Interpreted by Dr. Howard at 1742 11/15/18. Re-Evaluation - Re-Evaluation First Eval Re-Evaluation Time: 19:54 Change: Unchanged Comment: Pt had blood in his stool. Still SOB. Chest Pain Course/Dx - Course Course Of Treatment: This patient is a 72 year old M presenting to [facility] with a chief complaint of CP described as tightness and is located on his L anterior side. He states that he smoked marijuana and began aching all over and became SOB. His PE showed that he is a poor historian and is disoriented to day. His CXR shows no active pulmonary diseases. EKG shows a NSR at [address] elevations in the anterior leads, no STEMI. This pt will be admitted to [facility] by Dr. Bass, hospitalist, with a Dx of symptomatic anemia. - Diagnoses Provider Diagnoses: Symptomatic anemia - Provider Notifications Discussed Care Of Patient With: Shellie Bass Time Discussed With Above Provider: 20:04 Instructed by Provider To: Admit As Inpatient Admit/Transition Orders Completed By ED Provider: Yes Discharge - Sign-Out/Discharge Documenting (check all that apply): Patient Departure - admitted Patient Received Moderate/Deep Sedation with Procedure: No - Discharge Plan Condition: Stable Disposition: ADMITTED TO [facility] Referrals: Jozef Bah MD [Primary Care Provider] - - Attestation Statements Document Initiated by Scribe: Yes Documenting Scribe: Bolivar Fleming Provider For Whom Scribe is Documenting (Include Credential): Lizandro Howard MD Scribe Attestation: Bolivar Redd, scribed for Lizandro Howard MD on 11/15/18 at 2001. Status of Scribe Document: Ready
[2018-11-15 18:06] LABS: ABS Eosinophils 0.1 10^3/ul (0-0.6); ABS Lymphocytes 1.6 10^3/ul (1.0-4.8); ABS Monocytes 0.4 10^3/ul (0-0.8); ABS Neutrophils 3.9 10^3/ul (1.5-7.7); Hematocrit 29 % (42-52); Lymphocyte % 25.6 %; Mean Corpuscular HGB Conc 32 g/dL (31-36); Mean Corpuscular Hemoglobin 21 pg (27-31); Mean Corpuscular Volume 67 fL (80-94); Mean Platelet Volume 7.4 fL (7.4-10.4); Platelet Count 274 10^3/uL (150-450); Red Blood Count 4.28 10^6 /uL (4.18-5.48); Red Cell Distribution Width 20 % (10-15); White Blood Count 6.1 10^3/uL (3.5-10.8)
[2018-11-15 18:27] LABS: ALT 8 U/L (7-52); AST 11 U/L (13-39); Albumin/Globulin Ratio 1.4 (1-3); Alkaline Phosphatase 74 U/L (34-104); Anion Gap 6 mmol/L (2-11); BUN/Creatinine Ratio 19.8 (8-20); Blood Urea Nitrogen 18 mg/dL (6-24); CO2 Carbon Dioxide 26 mmol/L (22-32); Calcium 9.2 mg/dL (8.6-10.3); Chloride 110 mmol/L (101-111); EGFR African American 99.1 (>60); EGFR Non-African American 81.9 (>60); Globulin 2.8 g/dL (2-4); Glucose 96 mg/dL (70-100); Potassium 4.6 mmol/L (3.5-5.0); Sodium 142 mmol/L (135-145); Total Protein 6.8 g/dL (6.4-8.9)
[2018-11-15 18:36] LABS: Microcytosis 2+; Polychromasia 1+
[2018-11-15 20:29] LABS: Alcohol < 10 mg/dL (<10)
[2018-11-15 22:56] VITALS: BP 158/76
--- NOTE | 2018-11-18 04:15 | CONS ---
CC: Dr. Min; Dr. Salomon; Dr. Howard * CONSULTATION REPORT: DATE OF CONSULT: 11/15/18 - EMERGENCY DEPT REQUESTING PHYSICIAN: Dr. Howard from the emergency department. PRIMARY CARE PROVIDER: Dr. Salomon. REASON FOR CONSULT: The patient with shortness of breath and chest pain. CHIEF COMPLAINT: "I smoked some marijuana and I developed shortness of breath and chest pain." HISTORY OF PRESENT ILLNESS: Mark Flores is a 72-year-old male with history of traumatic brain injury and schizophrenia, who also is diabetic and has history of dyslipidemia, who presented to the hospital complaining of shortness of breath and chest pain after he smoked marijuana today. He did get 1 nebulizer treatment with albuterol during the ER stay and his shortness of breath and chest pain resolved entirely. His workup in the emergency department was grossly unremarkable apart from hemoglobin of 9. In the past, the patient's hemoglobin fluctuated between 9 to 12 in the past [address] Howard requested for hospitalist service to evaluate the patient for possibility of admission. PAST MEDICAL HISTORY: 1. History of schizophrenia. 2. Traumatic brain injury. 3. History of . 4. History of BPH. 5. History of cognitive disorder. 6. Neuropathy. 7. Diabetes type 2. 8. Hyperlipidemia. 9. Osteoarthritis. 10. Paroxysmal tachycardia. 11. History of left total knee replacement. 12. History of back surgery. 13. History of tonsillectomy. 14. Cataract surgery in the past. 15. History of evaluations in the past for transient right-sided weakness when the patient is intoxicated that is directly related towards deficits from traumatic brain injury exacerbated by either intoxication or dehydration. MEDICATIONS AT HOME: Include: 1. Hydroxyzine 100 mg at bedtime. 2. Acetaminophen on p.r.n. basis. 3. Proscar 5 mg daily. 4. Incruse Ellipta 1 inhalation daily. 5. Flomax 0.4 mg daily. 6. Januvia 50 mg daily. 7. Lidocaine patch daily. 8. Atrovent nebulizer every 12 hours p.r.n. 9. Metformin 500 mg b.i.d. 10. Seroquel 400 mg at bedtime. 11. Omeprazole 20 mg daily. 12. Lisinopril 2.5 mg daily. 13. Lipitor 10 mg daily. 14. Aspirin 81 mg daily. 15. BuSpar 15 mg 3 times a day. 16. Senna 2 tablets in a.m. 17. Claritin 10 mg daily. 18. Risperdal 1 mg b.i.d. 19. Gabapentin 300 mg 3 times a day. 20. Colace 100 mg daily. ALLERGIES: BUPROPION. FAMILY HISTORY: Mother with history of "brain cancer." SOCIAL HISTORY: The patient is a resident of a penitentiary called [place]. He denies any alcohol use. He smokes marijuana daily. He also smokes half a pack of cigarettes a day. His surrogate decision maker is his sister, Kait Mckeon. REVIEW OF SYSTEMS: Please see history of present illness. All the remaining 12 systems reviewed with the patient, who is rather a poor historian and were otherwise negative. PHYSICAL EXAM: Blood pressure of 131/77, heart rate of 74 and regular, respiratory rate 23, oxygen saturation 99% on room air, temperature of 98.4. General: The patient is a pleasant 72-year-old male, who is in no acute distress. Alert and oriented x2. HEENT: Head: Atraumatic, normocephalic. Eyes: Pupils are equal, reactive to light and accommodation. Oropharynx is clear. Mucosa moist. Neck: Supple. No JVD. No bruits bilaterally. Cardiovascular: Regular rate and rhythm. No murmur. Respiratory: Clear to auscultation bilaterally with distant breath sounds. Abdomen: Soft, nontender. Bowel sounds are present in all 4 quadrants. Extremities: There is no edema. Pulses are 2+ bilaterally. No clubbing or cyanosis. DIAGNOSTIC STUDIES/LAB DATA: Laboratory data showed D-dimer of below 200. CBC: White blood cell count of 6.1, hemoglobin of 9.0, hematocrit is 29, MCV of 67, platelets of 274. Sodium of 142, potassium 4.7, chloride 110, carbon dioxide 26, BUN 18, creatinine 0.91. Liver function test unremarkable. Troponin of 0. Lactic acid of 1.4. The patient's portable chest x-ray, impression: "No active cardiopulmonary disease is noted." The patient's EKG showed normal sinus rhythm with heart rate of 68 beats per minute. Minimal J-point elevation in leads V2 and V3. Compared with an EKG from November of 2017, the changes are similar. ASSESSMENT AND PLAN: 1. Shortness of breath that resolved after a nebulizer treatment after smoking marijuana. At this point, the patient may have developed bronchospasm after the marijuana that resolved after nebulizer treatment. His current saturation is 99% and D-dimer is below 200. I do not believe the patient needs to be admitted for the dyspnea anymore. 2. In regards to the patient's chest pain, the patient's EKG is unremarkable and his troponin is negative. Nevertheless, due to his age, I did recommend for the patient to stay over the weekend for stress test on Sunday morning. Unfortunately, it is Sunday night and we have no capacity to be able to do the stress test at our facility over the weekend. The patient refused to stay for the stress until Sunday and requested to be discharged. 3. In regards to the patient's macrocytic anemia, the patient stool was heme negative, guaiac negative during the ED stay. Nevertheless, he is microcytic and anemic, somewhat lower than his baseline. It is recommended to follow up with his primary care provider with further evaluation of his microcytic anemia. We will obtain the second troponin to make sure that it continues to be negative. TIME SPENT: Approximately 70 minutes was spent in evaluation of this patient in the ED. Thank you very much for allowing me to see your patient in consultation. The case is going to be discussed with Dr. Min and patient will likely be discharged home from the emergency department today as per his wish. [id number]/[facility] #: [id number] BILL
== END 2018-11-15 22:56 | disposition short-term general hospital (02) ==
LOC: ED 16:51
DX: D64.9 Anemia, unspecified (principal); R06.02 Shortness of breath; R07.89 Other chest pain; R05 Cough; M79.10 Myalgia, unspecified site; E11.9 Type 2 diabetes mellitus without complications; Z79.84 Long term (current) use of oral hypoglycemic drugs; I10 Essential (primary) hypertension; E78.00 Pure hypercholesterolemia, unspecified; K21.9 Gastro-esophageal reflux disease without esophagitis; K59.09 Other constipation; N40.0 Benign prostatic hyperplasia without lower urinary tract symptoms; F20.9 Schizophrenia, unspecified; F09 Unspecified mental disorder due to known physiological condition; Z87.820 Personal history of traumatic brain injury; Z96.652 Presence of left artificial knee joint; Z88.8 Allergy status to other drugs, medicaments and biological substances; F17.210 Nicotine dependence, cigarettes, uncomplicated
CPT/HCPCS: 36415; 71045; 80053; 80320; 82272; 83605; 84484; 85025; 85379; 86850; 86900; 86901; 87040; 93005; 99284; G0480

== ENCOUNTER 2021-08-12 15:39 | Inpatient (IN) ==
[2021-08-12] MEDS ORDERED: Cefepime 2 GM in Dextrose 2 GM/50 ML BAG IV ONE (16:01)
[2021-08-12] MEDS ORDERED: NS 0.9% 1000 ml BAG 1,000 ML IV.FLUID IV ONE (16:04)
[2021-08-12 16:14] LABS: Hematocrit 37 % (42-52); Hemoglobin 12.7 g/dL (14.0-18.0); Mean Corpuscular HGB Conc 34 g/dL (31-36); Mean Corpuscular Hemoglobin 29 pg (27-31); Mean Corpuscular Volume 85 fL (80-94); Mean Platelet Volume 8.6 fL (7.4-10.4); Platelet Count 216 10^3/uL (150-450); Red Cell Distribution Width 16 % (10-15); White Blood Count 22.2 10^3/uL (3.5-10.8)
[2021-08-12 16:39] LABS: Activated Partial Thrombo Time 28.3 seconds (26.0-38.0); INR 1.11 (0.86-1.15)
[2021-08-12 16:52] LABS: Albumin 3.6 g/dL (3.2-5.2); Albumin/Globulin Ratio 1.6 (1-3); C Reactive Protein 10.72 mg/L (<8.01); Calcium 8.9 mg/dL (8.6-10.3); Globulin 2.2 g/dL (2-4); Total Bilirubin 0.5 mg/dL (0.2-1.0); Total Protein 5.8 g/dL (6.4-8.9)
[2021-08-12] MEDS ORDERED: Vancomycin 1,500 MG in NS 0.9% 250 ml 250 ML IVPB ONE (17:00)
[2021-08-12 17:21] LABS: ABS Basophils 0.1 10^3/ul (0-0.2); ABS Lymphocytes 0.5 10^3/ul (1.0-4.8); ABS Monocytes 1.1 10^3/ul (0-0.8); ABS Neutrophils 20.6 10^3/ul (1.5-7.7); Eosinophil % 0.2 %; Lymphocyte % 2.1 %
[2021-08-12 18:06] LABS: High Sensitivity Troponin 1 Hr 14 pg/mL (<20)
[2021-08-12 18:06] LABS: Urine Appearance Cloudy; Urine Bilirubin Negative (Negative); Urine Blood 3+ (Negative); Urine Color Yellow; Urine Glucose Negative (Negative); Urine Ketones Negative (Negative); Urine Nitrite Negative (Negative); Urine Protein Negative (Negative); Urine Specific Gravity 1.008 (1.002-1.030); Urine Urobilinogen Negative (Negative)
[2021-08-12 18:12] LABS: Urine Bacteria Absent (Absent); Urine Red Blood Cell 3+(>10/hpf) (Absent); Urine Squamous Epithelial Cell Present (Absent); Urine White Blood Cell 3+(>20/hpf) (Absent)
[2021-08-12] MEDS ORDERED: Ondansetron 4 mg VIAL 2 MG/ML 2 ml VIAL IV PRN (23:36)
[2021-08-12] MEDS ORDERED: Cefepime ADVAN 1 GM in NS 0.9% 50 ML 50 ML IVPB SCH (23:45)
[2021-08-13] MEDS ORDERED: Cefepime 1 GM in Dextrose 1 GM/50 ML BAG IV SCH
[2021-08-13] MEDS ORDERED: Dextrose 50% Syringe 50 ml 25 GM/50 ML SYRINGE IV PUSH PRN (00:34)
[2021-08-13] MEDS: Enoxaparin 40 MG/0.4 ML SYR SUBCUT SCH ×2 (02:11→22:38)
[2021-08-13] MEDS: Lidocaine PATCH 5% PATCH TRANSDERM SCH ×2 (02:14→22:38)
[2021-08-13] MEDS: Polyethylene Glycol 3350 17 GM PACKET PO SCH (02:25)
[2021-08-13] MEDS: Cefepime 1 GM in Dextrose 1 GM/50 ML BAG IV SCH ×2 (03:58→18:11)
[2021-08-13 06:42] LABS: ABS Lymphocytes 0.7 10^3/ul (1.0-4.8); ABS Monocytes 0.8 10^3/ul (0-0.8); ABS Neutrophils 15.3 10^3/ul (1.5-7.7); Hematocrit 35 % (42-52); Hemoglobin 11.8 g/dL (14.0-18.0); Lymphocyte % 4.4 %; Mean Corpuscular HGB Conc 34 g/dL (31-36); Mean Corpuscular Hemoglobin 29 pg (27-31); Mean Corpuscular Volume 87 fL (80-94); Mean Platelet Volume 8.6 fL (7.4-10.4); Platelet Count 174 10^3/uL (150-450); Red Blood Count 4.06 10^6 /uL (4.18-5.48); Red Cell Distribution Width 16 % (10-15); White Blood Count 16.9 10^3/uL (3.5-10.8)
[2021-08-13 06:55] LABS: Albumin 3.2 g/dL (3.2-5.2); Albumin/Globulin Ratio 1.5 (1-3); C Reactive Protein 87.44 mg/L (<8.01); Calcium 8.5 mg/dL (8.6-10.3); Direct Bilirubin 0.1 mg/dL (0.03-0.18); Globulin 2.2 g/dL (2-4); Indirect Bilirubin 0.3 mg/dL (0.3-1.0); Potassium 4.1 mmol/L (3.5-5.0); Total Bilirubin 0.4 mg/dL (0.2-1.0); Total Protein 5.4 g/dL (6.4-8.9); eGFR CKD-EPI 93.7 (>60)
[2021-08-13] MEDS: SPIRIVA Respimat (tiotropium) 2.5 mcg/inh Inhaler INH SCH (07:12)
[2021-08-13] MEDS ORDERED: Sitagliptin 50 mg TAB (NF) PO SCH (09:00)
[2021-08-13] MEDS: CMCS: Meloxicam 7.5 mg TAB (NF) PO SCH (11:51)
[2021-08-13] MEDS: Calcium Polycarbophil 625mg TB PO SCH (11:51)
[2021-08-13] MEDS: Aspirin EC 81 mg TAB.EC (enteric coated) PO SCH (11:51)
[2021-08-13] MEDS: Multivitamins/Minerals TAB PO SCH (11:51)
[2021-08-14] MEDS: Cefepime 1 GM in Dextrose 1 GM/50 ML BAG IV SCH ×2 (04:44→17:31)
[2021-08-14] MEDS: SPIRIVA Respimat (tiotropium) 2.5 mcg/inh Inhaler INH SCH (07:39)
[2021-08-14 07:44] LABS: ABS Lymphocytes 0.6 10^3/ul (1.0-4.8); ABS Monocytes 0.5 10^3/ul (0-0.8); ABS Neutrophils 5.8 10^3/ul (1.5-7.7); Eosinophil % 0.4 %; Hematocrit 36 % (42-52); Hemoglobin 12.4 g/dL (14.0-18.0); Lymphocyte % 8.3 %; Mean Corpuscular HGB Conc 35 g/dL (31-36); Mean Corpuscular Hemoglobin 29 pg (27-31); Mean Corpuscular Volume 85 fL (80-94); Mean Platelet Volume 8.2 fL (7.4-10.4); Platelet Count 151 10^3/uL (150-450); Red Blood Count 4.24 10^6 /uL (4.18-5.48); Red Cell Distribution Width 16 % (10-15); White Blood Count 6.9 10^3/uL (3.5-10.8)
[2021-08-14 08:28] LABS: Calcium 8.2 mg/dL (8.6-10.3); Potassium 3.8 mmol/L (3.5-5.0); eGFR CKD-EPI 95.7 (>60)
[2021-08-14 09:23] LABS: C Reactive Protein 97.65 mg/L (<8.01)
[2021-08-14] MEDS: Calcium Polycarbophil 625mg TB PO SCH (10:00)
[2021-08-14] MEDS: Aspirin EC 81 mg TAB.EC (enteric coated) PO SCH (10:00)
[2021-08-14] MEDS: CMCS: Meloxicam 7.5 mg TAB (NF) PO SCH (10:01)
[2021-08-14] MEDS: Multivitamins/Minerals TAB PO SCH (10:01)
[2021-08-14] MEDS: Furosemide 20 mg/2 ml IV VIAL IV SLOW PU ONE ×2 (11:48→11:49)
[2021-08-14] MEDS: Enoxaparin 40 MG/0.4 ML SYR SUBCUT SCH (19:33)
[2021-08-14] MEDS: Lidocaine PATCH 5% PATCH TRANSDERM SCH (19:38)
[2021-08-14] MEDS: Polyethylene Glycol 3350 17 GM PACKET PO SCH (19:40)
[2021-08-15] MEDS: Cefepime 1 GM in Dextrose 1 GM/50 ML BAG IV SCH (04:20)
[2021-08-15 06:21] LABS: ABS Eosinophils 0.1 10^3/ul (0-0.6); ABS Lymphocytes 0.9 10^3/ul (1.0-4.8); ABS Monocytes 0.5 10^3/ul (0-0.8); ABS Neutrophils 3.2 10^3/ul (1.5-7.7); Eosinophil % 2.6 %; Hematocrit 37 % (42-52); Hemoglobin 12.7 g/dL (14.0-18.0); Lymphocyte % 19.8 %; Mean Corpuscular HGB Conc 35 g/dL (31-36); Mean Corpuscular Hemoglobin 30 pg (27-31); Mean Corpuscular Volume 85 fL (80-94); Mean Platelet Volume 8.3 fL (7.4-10.4); Nucleated Red Blood Cells % 0.1; Platelet Count 168 10^3/uL (150-450); Red Blood Count 4.31 10^6 /uL (4.18-5.48); Red Cell Distribution Width 16 % (10-15); White Blood Count 4.7 10^3/uL (3.5-10.8)
[2021-08-15 06:40] LABS: C Reactive Protein 86.77 mg/L (<8.01); Calcium 8.5 mg/dL (8.6-10.3); Potassium 3.6 mmol/L (3.5-5.0); eGFR CKD-EPI 92.6 (>60)
[2021-08-15] MEDS: SPIRIVA Respimat (tiotropium) 2.5 mcg/inh Inhaler INH SCH (07:37)
[2021-08-15] MEDS: Multivitamins/Minerals TAB PO SCH (09:06)
[2021-08-15] MEDS: Calcium Polycarbophil 625mg TB PO SCH (09:07)
[2021-08-15] MEDS: CMCS: Meloxicam 7.5 mg TAB (NF) PO SCH (09:08)
[2021-08-15] MEDS: Aspirin EC 81 mg TAB.EC (enteric coated) PO SCH (09:09)
[2021-08-15] MEDS: Amoxicillin/Clavul 875/125 TAB (Augmentin 875 tab) PO SCH (20:52)
[2021-08-15] MEDS: Enoxaparin 40 MG/0.4 ML SYR SUBCUT SCH (20:53)
[2021-08-15] MEDS: Lidocaine PATCH 5% PATCH TRANSDERM SCH (20:53)
[2021-08-16] MEDS: SPIRIVA Respimat (tiotropium) 2.5 mcg/inh Inhaler INH SCH (08:22)
[2021-08-16] MEDS: Calcium Polycarbophil 625mg TB PO SCH (10:12)
[2021-08-16] MEDS: CMCS: Meloxicam 7.5 mg TAB (NF) PO SCH (10:13)
[2021-08-16] MEDS: Aspirin EC 81 mg TAB.EC (enteric coated) PO SCH (10:17)
[2021-08-16] MEDS: Amoxicillin/Clavul 875/125 TAB (Augmentin 875 tab) PO SCH ×2 (10:19→20:29)
[2021-08-16] MEDS: Multivitamins/Minerals TAB PO SCH (10:28)
[2021-08-16] MEDS: Enoxaparin 40 MG/0.4 ML SYR SUBCUT SCH (20:29)
[2021-08-16] MEDS: Lidocaine PATCH 5% PATCH TRANSDERM SCH (20:29)
[2021-08-16] MEDS: Polyethylene Glycol 3350 17 GM PACKET PO SCH (21:05)
[2021-08-17 06:48] LABS: Hematocrit 38 % (42-52); Hemoglobin 12.7 g/dL (14.0-18.0); Mean Corpuscular HGB Conc 33 g/dL (31-36); Mean Corpuscular Hemoglobin 29 pg (27-31); Mean Corpuscular Volume 85 fL (80-94); Mean Platelet Volume 8.3 fL (7.4-10.4); Platelet Count 209 10^3/uL (150-450); Red Blood Count 4.46 10^6 /uL (4.18-5.48); Red Cell Distribution Width 16 % (10-15); White Blood Count 5.8 10^3/uL (3.5-10.8)
[2021-08-17 06:55] LABS: ABS Eosinophils 0.2 10^3/ul (0-0.6); ABS Lymphocytes 1.8 10^3/ul (1.0-4.8); ABS Monocytes 0.6 10^3/ul (0-0.8); ABS Neutrophils 3.2 10^3/ul (1.5-7.7); Lymphocyte % 30.6 %
[2021-08-17 07:18] LABS: Potassium 4.4 mmol/L (3.5-5.0)
[2021-08-17 07:19] LABS: Calcium 8.9 mg/dL (8.6-10.3); eGFR CKD-EPI 92.3 (>60)
[2021-08-17] MEDS: SPIRIVA Respimat (tiotropium) 2.5 mcg/inh Inhaler INH SCH (09:41)
[2021-08-17] MEDS: Amoxicillin/Clavul 875/125 TAB (Augmentin 875 tab) PO SCH ×2 (10:54→21:00)
[2021-08-17] MEDS: Aspirin EC 81 mg TAB.EC (enteric coated) PO SCH (10:55)
[2021-08-17] MEDS: CMCS: Meloxicam 7.5 mg TAB (NF) PO SCH (10:55)
[2021-08-17] MEDS: Multivitamins/Minerals TAB PO SCH (10:55)
[2021-08-17] MEDS: Calcium Polycarbophil 625mg TB PO SCH (10:55)
[2021-08-17 15:43] LABS: Rapid COVID-19 Molecular Undetected (Undetected)
[2021-08-17] MEDS: Enoxaparin 40 MG/0.4 ML SYR SUBCUT SCH ×2 (21:02→21:03)
[2021-08-17] MEDS: Lidocaine PATCH 5% PATCH TRANSDERM SCH (21:03)
[2021-08-18 06:45] LABS: Hematocrit 38 % (42-52); Hemoglobin 12.8 g/dL (14.0-18.0); Mean Corpuscular HGB Conc 34 g/dL (31-36); Mean Corpuscular Hemoglobin 29 pg (27-31); Mean Corpuscular Volume 86 fL (80-94); Mean Platelet Volume 8.4 fL (7.4-10.4); Platelet Count 222 10^3/uL (150-450); Red Blood Count 4.46 10^6 /uL (4.18-5.48); Red Cell Distribution Width 16 % (10-15); White Blood Count 6.4 10^3/uL (3.5-10.8)
[2021-08-18 06:50] LABS: ABS Basophils 0.1 10^3/ul (0-0.2); ABS Eosinophils 0.2 10^3/ul (0-0.6); ABS Lymphocytes 2.1 10^3/ul (1.0-4.8); ABS Monocytes 0.7 10^3/ul (0-0.8); ABS Neutrophils 3.3 10^3/ul (1.5-7.7); Eosinophil % 3.5 %; Lymphocyte % 32.1 %
[2021-08-18 07:02] LABS: Calcium 8.7 mg/dL (8.6-10.3); Potassium 4.1 mmol/L (3.5-5.0); eGFR CKD-EPI 93.4 (>60)
[2021-08-18] MEDS: SPIRIVA Respimat (tiotropium) 2.5 mcg/inh Inhaler INH SCH (07:50)
[2021-08-18] MEDS: Calcium Polycarbophil 625mg TB PO SCH (08:49)
[2021-08-18] MEDS: Multivitamins/Minerals TAB PO SCH (08:50)
[2021-08-18] MEDS: Amoxicillin/Clavul 875/125 TAB (Augmentin 875 tab) PO SCH (08:50)
[2021-08-18] MEDS: Aspirin EC 81 mg TAB.EC (enteric coated) PO SCH (08:50)
[2021-08-18] MEDS: CMCS: Meloxicam 7.5 mg TAB (NF) PO SCH (08:54)
[2021-08-18 12:00] VITALS: BP 146/56
== END 2021-08-18 14:25 | DRG 872 ==
LOC: ED 15:39 → MED 23:16 → SUATTDRO 23:16 → MED 08-13 00:39
PROVIDERS: ADMIT Internal Medicine; ATTEND Hospitalist

== ENCOUNTER 2021-11-07 09:56 | Observation (INO) ==
[2021-11-07 12:21] LABS: Hematocrit 40 % (42-52); Hemoglobin 13.2 g/dL (14.0-18.0); Mean Corpuscular HGB Conc 33 g/dL (31-36); Mean Corpuscular Hemoglobin 29 pg (27-31); Mean Corpuscular Volume 86 fL (80-94); Mean Platelet Volume 8.3 fL (7.4-10.4); Platelet Count 227 10^3/uL (150-450); Red Blood Count 4.62 10^6 /uL (4.18-5.48); Red Cell Distribution Width 15 % (10-15); White Blood Count 9.8 10^3/uL (3.5-10.8)
[2021-11-07 12:42] LABS: High Sens Troponin Baseline 6 pg/mL (<20)
[2021-11-07 12:51] LABS: ALT 10 U/L (7-52); Albumin/Globulin Ratio 1.5 (1-3); Alkaline Phosphatase 93 U/L (35-149); Blood Urea Nitrogen 7 mg/dL (6-24); CO2 Carbon Dioxide 27 mmol/L (22-32); Calcium 10.1 mg/dL (8.6-10.3); Chloride 101 mmol/L (101-111); Creatine Kinase 54 U/L (10-223); Globulin 2.7 g/dL (2-4); Glucose 88 mg/dL (70-100); Sodium 135 mmol/L (135-145); Total Protein 6.7 g/dL (6.4-8.9); eGFR CKD-EPI 93.7 (>60)
[2021-11-07 13:05] LABS: High Sensitivity Troponin 1 Hr 7 pg/mL (<20)
[2021-11-07 13:32] LABS: Anion Gap 7 mmol/L (2-11)
[2021-11-07 14:21] LABS: Potassium Redraw 4.9 mmol/L (3.5-5.0)
[2021-11-07 14:40] LABS: ABS Eosinophils 0.2 10^3/ul (0-0.6); ABS Lymphocytes 1.5 10^3/ul (1.0-4.8); ABS Monocytes 0.7 10^3/ul (0-0.8); ABS Neutrophils 7.4 10^3/ul (1.5-7.7); Eosinophil % 2.1 %; Lymphocyte % 15.3 %; Nucleated Red Blood Cells % 0.1
[2021-11-07] MEDS: Enoxaparin 40 MG/0.4 ML SYR SUBCUT SCH (21:35)
[2021-11-07] MEDS: Polyethylene Glycol 3350 17 GM PACKET PO SCH (21:44)
[2021-11-08] MEDS: SPIRIVA Respimat (tiotropium) 2.5 mcg/inh Inhaler INH SCH (08:40)
[2021-11-08] MEDS: Aspirin EC 81 mg TAB.EC (enteric coated) PO SCH (11:09)
[2021-11-08] MEDS: CMCS: SitaGLIPtin 25mg TAB (NF) 25 MG TAB PO SCH (11:09)
[2021-11-08] MEDS: CMCS: Meloxicam 7.5 mg TAB (NF) PO SCH (11:09)
[2021-11-08 12:49] LABS: Urine Bacteria 1+ (Absent); Urine Red Blood Cell Absent (Absent); Urine White Blood Cell Trace(0-5/hpf) (Absent)
[2021-11-08 15:02] LABS: Urine Appearance Clear; Urine Blood 1+ (Small) (Negative); Urine Color Straw; Urine Ketones Negative (Negative); Urine Protein Negative (Negative); Urine Urobilinogen 0.2 (Negative) (Negative)
[2021-11-08 15:03] LABS: Urine Bilirubin Negative (Negative); Urine Glucose Negative (Negative); Urine Nitrite Negative (Negative)
[2021-11-08] MEDS: Enoxaparin 40 MG/0.4 ML SYR SUBCUT SCH (20:08)
[2021-11-09] MEDS: SPIRIVA Respimat (tiotropium) 2.5 mcg/inh Inhaler INH SCH (08:34)
[2021-11-09] MEDS: Aspirin EC 81 mg TAB.EC (enteric coated) PO SCH (10:15)
[2021-11-09] MEDS: CMCS: Meloxicam 7.5 mg TAB (NF) PO SCH (10:17)
[2021-11-09] MEDS: CMCS: SitaGLIPtin 25mg TAB (NF) 25 MG TAB PO SCH (11:36)
[2021-11-09] MEDS: Enoxaparin 40 MG/0.4 ML SYR SUBCUT SCH (21:39)
[2021-11-09] MEDS: Polyethylene Glycol 3350 17 GM PACKET PO SCH (21:44)
[2021-11-10 06:37] LABS: ABS Eosinophils 0.1 10^3/ul (0-0.6); ABS Lymphocytes 1.9 10^3/ul (1.0-4.8); ABS Monocytes 0.6 10^3/ul (0-0.8); ABS Neutrophils 2.8 10^3/ul (1.5-7.7); Eosinophil % 2.2 %; Hematocrit 37 % (42-52); Hemoglobin 12.5 g/dL (14.0-18.0); Lymphocyte % 34.5 %; Mean Corpuscular HGB Conc 34 g/dL (31-36); Mean Corpuscular Hemoglobin 29 pg (27-31); Mean Corpuscular Volume 85 fL (80-94); Mean Platelet Volume 8.2 fL (7.4-10.4); Platelet Count 217 10^3/uL (150-450); Red Blood Count 4.34 10^6 /uL (4.18-5.48); Red Cell Distribution Width 14 % (10-15); White Blood Count 5.5 10^3/uL (3.5-10.8)
[2021-11-10 07:02] LABS: Calcium 9.6 mg/dL (8.6-10.3); Magnesium 1.7 mg/dL (1.9-2.7); eGFR CKD-EPI 77.6 (>60)
[2021-11-10] MEDS ORDERED: Magnesium Sulfate 2 gm BAG 2 GM/50 ML BAG IVPB ONE (07:14)
[2021-11-10] MEDS: SPIRIVA Respimat (tiotropium) 2.5 mcg/inh Inhaler INH SCH (09:10)
[2021-11-10] MEDS: CMCS: Meloxicam 7.5 mg TAB (NF) PO SCH (09:37)
[2021-11-10] MEDS: Aspirin EC 81 mg TAB.EC (enteric coated) PO SCH (09:38)
[2021-11-10 11:37] LABS: TSH Ultra Thyroid Stim Horm 1.03 mcIU/mL (0.34-5.60)
[2021-11-10] MEDS: Sulfamethox/Trimethoprim DS TAB 800/160 mg PO SCH ×2 (13:14→20:34)
[2021-11-10] MEDS: Enoxaparin 40 MG/0.4 ML SYR SUBCUT SCH (20:33)
[2021-11-11 05:20] LABS: ABS Eosinophils 0.2 10^3/ul (0-0.6); ABS Lymphocytes 2.4 10^3/ul (1.0-4.8); ABS Monocytes 0.7 10^3/ul (0-0.8); ABS Neutrophils 3.6 10^3/ul (1.5-7.7); Eosinophil % 2.3 %; Hematocrit 38 % (42-52); Hemoglobin 12.6 g/dL (14.0-18.0); Lymphocyte % 34.8 %; Mean Corpuscular HGB Conc 33 g/dL (31-36); Mean Corpuscular Hemoglobin 29 pg (27-31); Mean Corpuscular Volume 86 fL (80-94); Mean Platelet Volume 8.2 fL (7.4-10.4); Platelet Count 220 10^3/uL (150-450); Red Cell Distribution Width 14 % (10-15)
[2021-11-11 05:46] LABS: Calcium 9.9 mg/dL (8.6-10.3); Magnesium 1.9 mg/dL (1.9-2.7); Potassium 4.1 mmol/L (3.5-5.0); eGFR CKD-EPI 63.7 (>60)
[2021-11-11] MEDS: SPIRIVA Respimat (tiotropium) 2.5 mcg/inh Inhaler INH SCH (08:06)
[2021-11-11] MEDS: Aspirin EC 81 mg TAB.EC (enteric coated) PO SCH (09:16)
[2021-11-11] MEDS: CMCS: Meloxicam 7.5 mg TAB (NF) PO SCH (09:17)
[2021-11-11] MEDS: Sulfamethox/Trimethoprim DS TAB 800/160 mg PO SCH ×2 (10:19→21:59)
[2021-11-11] MEDS: Enoxaparin 40 MG/0.4 ML SYR SUBCUT SCH (21:59)
[2021-11-11] MEDS: Polyethylene Glycol 3350 17 GM PACKET PO SCH (23:59)
[2021-11-12 07:10] LABS: ABS Eosinophils 0.1 10^3/ul (0-0.6); ABS Lymphocytes 1.6 10^3/ul (1.0-4.8); ABS Monocytes 0.7 10^3/ul (0-0.8); ABS Neutrophils 4.4 10^3/ul (1.5-7.7); Eosinophil % 1.9 %; Hematocrit 37 % (42-52); Hemoglobin 12.7 g/dL (14.0-18.0); Lymphocyte % 23.4 %; Mean Corpuscular HGB Conc 35 g/dL (31-36); Mean Corpuscular Hemoglobin 29 pg (27-31); Mean Corpuscular Volume 85 fL (80-94); Mean Platelet Volume 8.3 fL (7.4-10.4); Nucleated Red Blood Cells % 0.1; Platelet Count 212 10^3/uL (150-450); Red Blood Count 4.33 10^6 /uL (4.18-5.48); Red Cell Distribution Width 14 % (10-15); White Blood Count 6.9 10^3/uL (3.5-10.8)
[2021-11-12 07:22] LABS: Calcium 9.8 mg/dL (8.6-10.3); Magnesium 1.9 mg/dL (1.9-2.7); Potassium 4.2 mmol/L (3.5-5.0); eGFR CKD-EPI 52.4 (>60)
[2021-11-12] MEDS: SPIRIVA Respimat (tiotropium) 2.5 mcg/inh Inhaler INH SCH (08:34)
[2021-11-12] MEDS: Aspirin EC 81 mg TAB.EC (enteric coated) PO SCH (09:23)
[2021-11-12] MEDS: Sulfamethox/Trimethoprim DS TAB 800/160 mg PO SCH (09:30)
[2021-11-12] MEDS: CMCS: Meloxicam 7.5 mg TAB (NF) PO SCH ×2 (10:20→10:21)
[2021-11-12 11:03] VITALS: BP 162/75
== END 2021-11-12 10:21 | disposition swing bed (61) ==
LOC: ED 09:56 → EDHOLD 09:56 → SUATTDRO 14:22 → MED 15:26
PROVIDERS: ADMIT Pediatrics; ATTEND Internal Medicine

== ENCOUNTER 2021-11-12 11:26 | Inpatient (IN) ==
[2021-11-12] MEDS ORDERED: Enoxaparin 40 MG/0.4 ML SYR SUBCUT SCH (12:00)
[2021-11-12] MEDS: Enoxaparin 40 MG/0.4 ML SYR SUBCUT SCH (13:17)
[2021-11-12] MEDS: Sulfamethox/Trimethoprim DS TAB 800/160 mg PO SCH (20:35)
[2021-11-12] MEDS: Vitamin THERAPEUTIC TAB PO SCH (20:35)
[2021-11-12] MEDS: Polyethylene Glycol 3350 17 GM PACKET PO SCH (20:36)
[2021-11-13] MEDS: SPIRIVA Respimat (tiotropium) 2.5 mcg/inh Inhaler INH SCH (08:32)
[2021-11-13] MEDS ORDERED: CMCS: Meloxicam 7.5 mg TAB (NF) PO SCH (09:00)
[2021-11-13] MEDS: Enoxaparin 40 MG/0.4 ML SYR SUBCUT SCH (10:53)
[2021-11-13] MEDS: Aspirin EC 81 mg TAB.EC (enteric coated) PO SCH (11:01)
[2021-11-13] MEDS: Sulfamethox/Trimethoprim DS TAB 800/160 mg PO SCH ×2 (11:02→20:07)
[2021-11-13] MEDS: Vitamin THERAPEUTIC TAB PO SCH (20:07)
[2021-11-14 06:30] LABS: Calcium 9.9 mg/dL (8.6-10.3); Potassium 4.6 mmol/L (3.5-5.0); eGFR CKD-EPI 54.3 (>60)
[2021-11-14] MEDS: SPIRIVA Respimat (tiotropium) 2.5 mcg/inh Inhaler INH SCH (08:18)
[2021-11-14] MEDS: Aspirin EC 81 mg TAB.EC (enteric coated) PO SCH (09:18)
[2021-11-14] MEDS: Sulfamethox/Trimethoprim DS TAB 800/160 mg PO SCH ×2 (09:19→21:06)
[2021-11-14] MEDS: Enoxaparin 40 MG/0.4 ML SYR SUBCUT SCH (11:36)
[2021-11-14] MEDS: Vitamin THERAPEUTIC TAB PO SCH (21:01)
[2021-11-14] MEDS: Polyethylene Glycol 3350 17 GM PACKET PO SCH (21:02)
[2021-11-15] MEDS: SPIRIVA Respimat (tiotropium) 2.5 mcg/inh Inhaler INH SCH (09:34)
[2021-11-15] MEDS: Aspirin EC 81 mg TAB.EC (enteric coated) PO SCH (11:06)
[2021-11-15] MEDS: Sulfamethox/Trimethoprim DS TAB 800/160 mg PO SCH ×2 (11:08→19:59)
[2021-11-15] MEDS: Enoxaparin 40 MG/0.4 ML SYR SUBCUT SCH (12:34)
[2021-11-15] MEDS: Vitamin THERAPEUTIC TAB PO SCH (20:00)
[2021-11-16] MEDS: SPIRIVA Respimat (tiotropium) 2.5 mcg/inh Inhaler INH SCH (08:00)
[2021-11-16] MEDS: Aspirin EC 81 mg TAB.EC (enteric coated) PO SCH (08:51)
[2021-11-16] MEDS: Sulfamethox/Trimethoprim DS TAB 800/160 mg PO SCH ×2 (08:51→20:14)
[2021-11-16] MEDS: Enoxaparin 40 MG/0.4 ML SYR SUBCUT SCH (12:38)
[2021-11-16] MEDS: Vitamin THERAPEUTIC TAB PO SCH (20:13)
[2021-11-16] MEDS: Polyethylene Glycol 3350 17 GM PACKET PO SCH (20:30)
[2021-11-17] MEDS: SPIRIVA Respimat (tiotropium) 2.5 mcg/inh Inhaler INH SCH (07:21)
[2021-11-17] MEDS: Aspirin EC 81 mg TAB.EC (enteric coated) PO SCH (09:32)
[2021-11-17] MEDS: Sulfamethox/Trimethoprim DS TAB 800/160 mg PO SCH (09:32)
[2021-11-17] MEDS: Enoxaparin 40 MG/0.4 ML SYR SUBCUT SCH (11:53)
[2021-11-17] MEDS: Vitamin THERAPEUTIC TAB PO SCH (21:47)
[2021-11-18] MEDS: Nystatin SUSPENSION 100,000 UNITS/ML UDC PO SCH ×5 (00:05→20:07)
[2021-11-18] MEDS: SPIRIVA Respimat (tiotropium) 2.5 mcg/inh Inhaler INH SCH (07:21)
[2021-11-18] MEDS: Aspirin EC 81 mg TAB.EC (enteric coated) PO SCH ×2 (09:04→11:25)
[2021-11-18 10:47] LABS: ABS Eosinophils 0.1 10^3/ul (0-0.6); ABS Lymphocytes 1.8 10^3/ul (1.0-4.8); ABS Monocytes 0.9 10^3/ul (0-0.8); ABS Neutrophils 6.4 10^3/ul (1.5-7.7); Eosinophil % 0.8 %; Hematocrit 41 % (42-52); Hemoglobin 13.7 g/dL (14.0-18.0); Lymphocyte % 19.1 %; Mean Corpuscular HGB Conc 34 g/dL (31-36); Mean Corpuscular Hemoglobin 29 pg (27-31); Mean Corpuscular Volume 85 fL (80-94); Mean Platelet Volume 8.5 fL (7.4-10.4); Nucleated Red Blood Cells % 0.3; Platelet Count 261 10^3/uL (150-450); Red Blood Count 4.75 10^6 /uL (4.18-5.48); Red Cell Distribution Width 14 % (10-15); White Blood Count 9.2 10^3/uL (3.5-10.8)
[2021-11-18] MEDS: Enoxaparin 40 MG/0.4 ML SYR SUBCUT SCH (11:27)
[2021-11-18 11:53] LABS: Calcium 10.3 mg/dL (8.6-10.3); Potassium 4.7 mmol/L (3.5-5.0); eGFR CKD-EPI 51.6 (>60)
[2021-11-18] MEDS: Lactated Ringers 1000 ml BAG 1,000 ML IV SCH (18:10)
[2021-11-18] MEDS: Vitamin THERAPEUTIC TAB PO SCH (20:07)
[2021-11-18] MEDS: Polyethylene Glycol 3350 17 GM PACKET PO SCH (20:43)
[2021-11-19] MEDS: Lactated Ringers 1000 ml BAG 1,000 ML IV SCH ×3 (01:39→19:25)
[2021-11-19] MEDS: SPIRIVA Respimat (tiotropium) 2.5 mcg/inh Inhaler INH SCH (08:19)
[2021-11-19] MEDS: Aspirin EC 81 mg TAB.EC (enteric coated) PO SCH (10:36)
[2021-11-19] MEDS: Nystatin SUSPENSION 100,000 UNITS/ML UDC PO SCH ×4 (10:37→20:41)
[2021-11-19] MEDS: Enoxaparin 40 MG/0.4 ML SYR SUBCUT SCH (14:36)
[2021-11-19] MEDS: Vitamin THERAPEUTIC TAB PO SCH (20:41)
[2021-11-20] MEDS: Lactated Ringers 1000 ml BAG 1,000 ML IV SCH ×3 (04:59→22:10)
[2021-11-20] MEDS: SPIRIVA Respimat (tiotropium) 2.5 mcg/inh Inhaler INH SCH (08:06)
[2021-11-20] MEDS: Nystatin SUSPENSION 100,000 UNITS/ML UDC PO SCH ×4 (09:31→20:55)
[2021-11-20] MEDS: Aspirin EC 81 mg TAB.EC (enteric coated) PO SCH (09:31)
[2021-11-20] MEDS: Enoxaparin 40 MG/0.4 ML SYR SUBCUT SCH (13:00)
[2021-11-20] MEDS: Polyethylene Glycol 3350 17 GM PACKET PO SCH (21:02)
[2021-11-20] MEDS: Vitamin THERAPEUTIC TAB PO SCH (21:02)
[2021-11-21] MEDS: Lactated Ringers 1000 ml BAG 1,000 ML IV SCH ×4 (07:17→20:40)
[2021-11-21] MEDS: SPIRIVA Respimat (tiotropium) 2.5 mcg/inh Inhaler INH SCH (08:31)
[2021-11-21] MEDS: Aspirin EC 81 mg TAB.EC (enteric coated) PO SCH (09:13)
[2021-11-21] MEDS: Nystatin SUSPENSION 100,000 UNITS/ML UDC PO SCH ×4 (09:14→20:49)
[2021-11-21] MEDS: Enoxaparin 40 MG/0.4 ML SYR SUBCUT SCH (11:51)
[2021-11-21] MEDS: Vitamin THERAPEUTIC TAB PO SCH (20:45)
[2021-11-22] MEDS: Lactated Ringers 1000 ml BAG 1,000 ML IV SCH ×2 (04:41→14:12)
[2021-11-22] MEDS: SPIRIVA Respimat (tiotropium) 2.5 mcg/inh Inhaler INH SCH (08:13)
[2021-11-22] MEDS: Nystatin SUSPENSION 100,000 UNITS/ML UDC PO SCH ×4 (10:40→22:18)
[2021-11-22] MEDS: Enoxaparin 40 MG/0.4 ML SYR SUBCUT SCH (12:45)
[2021-11-22] MEDS: Aspirin EC 81 mg TAB.EC (enteric coated) PO SCH (12:45)
[2021-11-22] MEDS: Polyethylene Glycol 3350 17 GM PACKET PO SCH (14:12)
[2021-11-22] MEDS: Vitamin THERAPEUTIC TAB PO SCH (22:04)
[2021-11-23] MEDS: Lactated Ringers 1000 ml BAG 1,000 ML IV SCH (04:31)
[2021-11-23] MEDS: SPIRIVA Respimat (tiotropium) 2.5 mcg/inh Inhaler INH SCH (07:39)
[2021-11-23] MEDS: Aspirin EC 81 mg TAB.EC (enteric coated) PO SCH (09:29)
[2021-11-23] MEDS: Nystatin SUSPENSION 100,000 UNITS/ML UDC PO SCH ×5 (09:29→20:30)
[2021-11-23] MEDS: Enoxaparin 40 MG/0.4 ML SYR SUBCUT SCH (14:40)
[2021-11-23] MEDS: Vitamin THERAPEUTIC TAB PO SCH (20:29)
[2021-11-24] MEDS: SPIRIVA Respimat (tiotropium) 2.5 mcg/inh Inhaler INH SCH (07:59)
[2021-11-24] MEDS: Nystatin SUSPENSION 100,000 UNITS/ML UDC PO SCH ×4 (11:24→20:32)
[2021-11-24] MEDS: Aspirin EC 81 mg TAB.EC (enteric coated) PO SCH (11:24)
[2021-11-24] MEDS: Polyethylene Glycol 3350 17 GM PACKET PO SCH (14:32)
[2021-11-24] MEDS: Enoxaparin 40 MG/0.4 ML SYR SUBCUT SCH (14:32)
[2021-11-24] MEDS: Vitamin THERAPEUTIC TAB PO SCH (20:32)
[2021-11-25] MEDS: SPIRIVA Respimat (tiotropium) 2.5 mcg/inh Inhaler INH SCH (06:59)
[2021-11-25] MEDS: Nystatin SUSPENSION 100,000 UNITS/ML UDC PO SCH ×4 (10:50→20:24)
[2021-11-25] MEDS: Aspirin EC 81 mg TAB.EC (enteric coated) PO SCH (12:25)
[2021-11-25] MEDS: Enoxaparin 40 MG/0.4 ML SYR SUBCUT SCH (14:26)
[2021-11-25 16:02] LABS: Calcium 9.8 mg/dL (8.6-10.3); Potassium 4.1 mmol/L (3.5-5.0)
[2021-11-25] MEDS: Vitamin THERAPEUTIC TAB PO SCH (20:17)
[2021-11-25] MEDS: Magnesium Hydroxide LIQ 30 ML UDC PO SCH (20:22)
[2021-11-26] MEDS: SPIRIVA Respimat (tiotropium) 2.5 mcg/inh Inhaler INH SCH (08:15)
[2021-11-26] MEDS: Aspirin EC 81 mg TAB.EC (enteric coated) PO SCH (10:30)
[2021-11-26] MEDS: Nystatin SUSPENSION 100,000 UNITS/ML UDC PO SCH ×4 (10:31→20:59)
[2021-11-26] MEDS: Magnesium Hydroxide LIQ 30 ML UDC PO SCH ×2 (10:32→20:59)
[2021-11-26] MEDS: Polyethylene Glycol 3350 17 GM PACKET PO SCH ×2 (14:38→14:49)
[2021-11-26] MEDS: Enoxaparin 40 MG/0.4 ML SYR SUBCUT SCH (14:38)
[2021-11-26] MEDS: Senna TAB 8.6 mg TAB PO PRN (20:59)
[2021-11-26] MEDS: Vitamin THERAPEUTIC TAB PO SCH (21:00)
[2021-11-27] MEDS: SPIRIVA Respimat (tiotropium) 2.5 mcg/inh Inhaler INH SCH (07:12)
[2021-11-27] MEDS: Magnesium Hydroxide LIQ 30 ML UDC PO SCH ×3 (09:18→19:18)
[2021-11-27] MEDS: Aspirin EC 81 mg TAB.EC (enteric coated) PO SCH (09:19)
[2021-11-27] MEDS: Nystatin SUSPENSION 100,000 UNITS/ML UDC PO SCH ×4 (09:22→19:18)
[2021-11-27] MEDS: Enoxaparin 40 MG/0.4 ML SYR SUBCUT SCH (13:55)
[2021-11-27] MEDS: Vitamin THERAPEUTIC TAB PO SCH (19:50)
[2021-11-28] MEDS: Magnesium Hydroxide LIQ 30 ML UDC PO SCH ×2 (07:09→19:37)
[2021-11-28] MEDS: SPIRIVA Respimat (tiotropium) 2.5 mcg/inh Inhaler INH SCH (07:22)
[2021-11-28] MEDS: Aspirin EC 81 mg TAB.EC (enteric coated) PO SCH (07:33)
[2021-11-28] MEDS: Nystatin SUSPENSION 100,000 UNITS/ML UDC PO SCH ×4 (07:36→19:47)
[2021-11-28] MEDS: Enoxaparin 40 MG/0.4 ML SYR SUBCUT SCH (13:49)
[2021-11-28] MEDS: Polyethylene Glycol 3350 17 GM PACKET PO SCH (13:53)
[2021-11-28] MEDS: Vitamin THERAPEUTIC TAB PO SCH (19:45)
[2021-11-29] MEDS: SPIRIVA Respimat (tiotropium) 2.5 mcg/inh Inhaler INH SCH (07:09)
[2021-11-29] MEDS: Nystatin SUSPENSION 100,000 UNITS/ML UDC PO SCH ×3 (08:06→16:11)
[2021-11-29] MEDS: Aspirin EC 81 mg TAB.EC (enteric coated) PO SCH (08:06)
[2021-11-29] MEDS: Magnesium Hydroxide LIQ 30 ML UDC PO SCH ×2 (08:28→20:13)
[2021-11-29] MEDS: Enoxaparin 40 MG/0.4 ML SYR SUBCUT SCH (14:40)
[2021-11-29] MEDS: Vitamin THERAPEUTIC TAB PO SCH (20:18)
[2021-11-30] MEDS: Nystatin SUSPENSION 100,000 UNITS/ML UDC PO SCH ×5 (00:21→22:22)
[2021-11-30] MEDS: SPIRIVA Respimat (tiotropium) 2.5 mcg/inh Inhaler INH SCH (07:40)
[2021-11-30] MEDS: Magnesium Hydroxide LIQ 30 ML UDC PO SCH ×2 (07:41→22:16)
[2021-11-30] MEDS: Aspirin EC 81 mg TAB.EC (enteric coated) PO SCH (08:54)
[2021-11-30 10:11] LABS: ABS Eosinophils 0.1 10^3/ul (0-0.6); ABS Lymphocytes 1.4 10^3/ul (1.0-4.8); ABS Monocytes 0.6 10^3/ul (0-0.8); ABS Neutrophils 5.2 10^3/ul (1.5-7.7); Eosinophil % 1.1 %; Hematocrit 35 % (42-52); Hemoglobin 11.7 g/dL (14.0-18.0); Lymphocyte % 18.7 %; Mean Corpuscular HGB Conc 33 g/dL (31-36); Mean Corpuscular Hemoglobin 28 pg (27-31); Mean Corpuscular Volume 85 fL (80-94); Mean Platelet Volume 7.7 fL (7.4-10.4); Nucleated Red Blood Cells % 0.1; Platelet Count 295 10^3/uL (150-450); Red Blood Count 4.14 10^6 /uL (4.18-5.48); Red Cell Distribution Width 14 % (10-15); White Blood Count 7.2 10^3/uL (3.5-10.8)
[2021-11-30 10:44] LABS: Calcium 9.5 mg/dL (8.6-10.3); Potassium 4.3 mmol/L (3.5-5.0); eGFR CKD-EPI 68.8 (>60)
[2021-11-30] MEDS: Enoxaparin 40 MG/0.4 ML SYR SUBCUT SCH (14:05)
[2021-11-30] MEDS: Polyethylene Glycol 3350 17 GM PACKET PO SCH (14:05)
[2021-11-30 19:28] LABS: Urine Appearance Cloudy; Urine Bilirubin 1+ (Small) (Negative); Urine Color Pink; Urine Glucose Negative (Negative); Urine Ketones Trace (Negative)
[2021-11-30 19:29] LABS: Urine Blood 3+ (Large) (Negative); Urine Nitrite Positive (Negative); Urine Protein 2+ (100 mg/dL) (Negative); Urine Urobilinogen 1.0 (Negative) (Negative)
[2021-11-30 19:59] LABS: Urine Bacteria Absent (Absent); Urine Red Blood Cell 3+(>10/hpf) (Absent); Urine Squamous Epithelial Cell Present (Absent); Urine White Blood Cell 3+(>20/hpf) (Absent)
[2021-11-30] MEDS: Vitamin THERAPEUTIC TAB PO SCH (22:16)
[2021-12-01] MEDS: SPIRIVA Respimat (tiotropium) 2.5 mcg/inh Inhaler INH SCH (07:33)
[2021-12-01] MEDS: Nystatin SUSPENSION 100,000 UNITS/ML UDC PO SCH ×4 (08:06→21:42)
[2021-12-01] MEDS: Aspirin EC 81 mg TAB.EC (enteric coated) PO SCH (08:06)
[2021-12-01] MEDS: Magnesium Hydroxide LIQ 30 ML UDC PO SCH ×2 (08:41→21:44)
[2021-12-01] MEDS: Enoxaparin 40 MG/0.4 ML SYR SUBCUT SCH (12:32)
[2021-12-01] MEDS: Vitamin THERAPEUTIC TAB PO SCH (21:37)
[2021-12-02] MEDS: SPIRIVA Respimat (tiotropium) 2.5 mcg/inh Inhaler INH SCH (07:10)
[2021-12-02] MEDS: Nystatin SUSPENSION 100,000 UNITS/ML UDC PO SCH ×4 (10:18→22:28)
[2021-12-02] MEDS: Aspirin EC 81 mg TAB.EC (enteric coated) PO SCH (10:18)
[2021-12-02] MEDS: Magnesium Hydroxide LIQ 30 ML UDC PO SCH (10:29)
[2021-12-02] MEDS: Enoxaparin 40 MG/0.4 ML SYR SUBCUT SCH (15:01)
[2021-12-02] MEDS: Polyethylene Glycol 3350 17 GM PACKET PO SCH (15:57)
[2021-12-02] MEDS: Vitamin THERAPEUTIC TAB PO SCH (22:28)
[2021-12-03] MEDS: Magnesium Hydroxide LIQ 30 ML UDC PO SCH ×3 (02:27→20:50)
[2021-12-03] MEDS: SPIRIVA Respimat (tiotropium) 2.5 mcg/inh Inhaler INH SCH (07:37)
[2021-12-03] MEDS: Nystatin SUSPENSION 100,000 UNITS/ML UDC PO SCH ×4 (09:18→20:50)
[2021-12-03] MEDS: Aspirin EC 81 mg TAB.EC (enteric coated) PO SCH (09:18)
[2021-12-03] MEDS: Enoxaparin 40 MG/0.4 ML SYR SUBCUT SCH (17:37)
[2021-12-03] MEDS: Senna TAB 8.6 mg TAB PO PRN (20:49)
[2021-12-03] MEDS: Vitamin THERAPEUTIC TAB PO SCH (20:50)
[2021-12-04] MEDS: SPIRIVA Respimat (tiotropium) 2.5 mcg/inh Inhaler INH SCH (07:53)
[2021-12-04] MEDS: Aspirin EC 81 mg TAB.EC (enteric coated) PO SCH (08:38)
[2021-12-04] MEDS: Magnesium Hydroxide LIQ 30 ML UDC PO SCH ×2 (08:40→21:35)
[2021-12-04] MEDS: Nystatin SUSPENSION 100,000 UNITS/ML UDC PO SCH ×4 (08:40→21:33)
[2021-12-04] MEDS: Enoxaparin 40 MG/0.4 ML SYR SUBCUT SCH (13:52)
[2021-12-04] MEDS: Polyethylene Glycol 3350 17 GM PACKET PO SCH (13:53)
[2021-12-04] MEDS: Vitamin THERAPEUTIC TAB PO SCH (21:34)
[2021-12-05] MEDS: SPIRIVA Respimat (tiotropium) 2.5 mcg/inh Inhaler INH SCH (08:35)
[2021-12-05] MEDS: Aspirin EC 81 mg TAB.EC (enteric coated) PO SCH (08:40)
[2021-12-05] MEDS: Magnesium Hydroxide LIQ 30 ML UDC PO SCH ×2 (08:40→21:35)
[2021-12-05] MEDS: Nystatin SUSPENSION 100,000 UNITS/ML UDC PO SCH ×4 (08:40→21:35)
[2021-12-05] MEDS: Enoxaparin 40 MG/0.4 ML SYR SUBCUT SCH (12:52)
[2021-12-05] MEDS: Vitamin THERAPEUTIC TAB PO SCH (21:34)
[2021-12-06] MEDS: SPIRIVA Respimat (tiotropium) 2.5 mcg/inh Inhaler INH SCH (07:05)
[2021-12-06] MEDS: Nystatin SUSPENSION 100,000 UNITS/ML UDC PO SCH ×4 (10:19→20:40)
[2021-12-06] MEDS: Magnesium Hydroxide LIQ 30 ML UDC PO SCH ×3 (10:19→20:40)
[2021-12-06] MEDS: Aspirin EC 81 mg TAB.EC (enteric coated) PO SCH (10:21)
[2021-12-06] MEDS: Polyethylene Glycol 3350 17 GM PACKET PO SCH (14:39)
[2021-12-06] MEDS: Enoxaparin 40 MG/0.4 ML SYR SUBCUT SCH (14:40)
[2021-12-06] MEDS: Vitamin THERAPEUTIC TAB PO SCH (20:40)
[2021-12-07] MEDS: SPIRIVA Respimat (tiotropium) 2.5 mcg/inh Inhaler INH SCH (08:22)
[2021-12-07] MEDS: Aspirin EC 81 mg TAB.EC (enteric coated) PO SCH (09:04)
[2021-12-07] MEDS: Nystatin SUSPENSION 100,000 UNITS/ML UDC PO SCH ×5 (09:04→20:11)
[2021-12-07] MEDS: Magnesium Hydroxide LIQ 30 ML UDC PO SCH ×2 (09:04→20:11)
[2021-12-07] MEDS: Enoxaparin 40 MG/0.4 ML SYR SUBCUT SCH (13:41)
[2021-12-07] MEDS: Vitamin THERAPEUTIC TAB PO SCH (20:12)
[2021-12-08] MEDS: SPIRIVA Respimat (tiotropium) 2.5 mcg/inh Inhaler INH SCH (07:44)
[2021-12-08] MEDS: Nystatin SUSPENSION 100,000 UNITS/ML UDC PO SCH ×4 (08:50→20:02)
[2021-12-08] MEDS: Magnesium Hydroxide LIQ 30 ML UDC PO SCH ×2 (08:51→20:02)
[2021-12-08] MEDS: Aspirin EC 81 mg TAB.EC (enteric coated) PO SCH (08:51)
[2021-12-08] MEDS: Enoxaparin 40 MG/0.4 ML SYR SUBCUT SCH (14:08)
[2021-12-08] MEDS: Polyethylene Glycol 3350 17 GM PACKET PO SCH (14:12)
[2021-12-08 14:40] LABS: Rapid COVID-19 Molecular Undetected (Undetected)
[2021-12-08] MEDS: Vitamin THERAPEUTIC TAB PO SCH (20:00)
[2021-12-09] MEDS: SPIRIVA Respimat (tiotropium) 2.5 mcg/inh Inhaler INH SCH (07:22)
[2021-12-09] MEDS: Nystatin SUSPENSION 100,000 UNITS/ML UDC PO SCH ×4 (09:44→19:42)
[2021-12-09] MEDS: Aspirin EC 81 mg TAB.EC (enteric coated) PO SCH (09:45)
[2021-12-09] MEDS: Magnesium Hydroxide LIQ 30 ML UDC PO SCH ×2 (09:45→19:31)
[2021-12-09] MEDS: Enoxaparin 40 MG/0.4 ML SYR SUBCUT SCH (13:46)
[2021-12-09] MEDS: Vitamin THERAPEUTIC TAB PO SCH (23:26)
[2021-12-10] MEDS: SPIRIVA Respimat (tiotropium) 2.5 mcg/inh Inhaler INH SCH (07:15)
[2021-12-10] MEDS: Aspirin EC 81 mg TAB.EC (enteric coated) PO SCH (08:59)
[2021-12-10] MEDS: Nystatin SUSPENSION 100,000 UNITS/ML UDC PO SCH ×4 (09:05→19:29)
[2021-12-10] MEDS: Magnesium Hydroxide LIQ 30 ML UDC PO SCH ×2 (10:57→19:29)
[2021-12-10] MEDS: Enoxaparin 40 MG/0.4 ML SYR SUBCUT SCH (13:41)
[2021-12-10] MEDS: Polyethylene Glycol 3350 17 GM PACKET PO SCH (13:44)
[2021-12-10] MEDS: Vitamin THERAPEUTIC TAB PO SCH (19:26)
[2021-12-11] MEDS: SPIRIVA Respimat (tiotropium) 2.5 mcg/inh Inhaler INH SCH (07:30)
[2021-12-11] MEDS: Magnesium Hydroxide LIQ 30 ML UDC PO SCH ×2 (10:43→19:23)
[2021-12-11] MEDS: Nystatin SUSPENSION 100,000 UNITS/ML UDC PO SCH ×4 (10:44→19:23)
[2021-12-11] MEDS: Aspirin EC 81 mg TAB.EC (enteric coated) PO SCH (10:45)
[2021-12-11] MEDS: Enoxaparin 40 MG/0.4 ML SYR SUBCUT SCH (14:07)
[2021-12-11] MEDS: Vitamin THERAPEUTIC TAB PO SCH (19:24)
[2021-12-12] MEDS: SPIRIVA Respimat (tiotropium) 2.5 mcg/inh Inhaler INH SCH (07:59)
[2021-12-12] MEDS: Magnesium Hydroxide LIQ 30 ML UDC PO SCH ×2 (10:26→20:21)
[2021-12-12] MEDS: Nystatin SUSPENSION 100,000 UNITS/ML UDC PO SCH ×4 (10:28→20:21)
[2021-12-12] MEDS: Aspirin EC 81 mg TAB.EC (enteric coated) PO SCH (10:36)
[2021-12-12] MEDS: Enoxaparin 40 MG/0.4 ML SYR SUBCUT SCH (13:55)
[2021-12-12] MEDS: Polyethylene Glycol 3350 17 GM PACKET PO SCH (14:47)
[2021-12-12] MEDS: Vitamin THERAPEUTIC TAB PO SCH (20:20)
[2021-12-13] MEDS: SPIRIVA Respimat (tiotropium) 2.5 mcg/inh Inhaler INH SCH (08:09)
[2021-12-13] MEDS: Magnesium Hydroxide LIQ 30 ML UDC PO SCH ×3 (09:00→20:55)
[2021-12-13] MEDS: Aspirin EC 81 mg TAB.EC (enteric coated) PO SCH (09:11)
[2021-12-13] MEDS: Nystatin SUSPENSION 100,000 UNITS/ML UDC PO SCH ×4 (09:12→20:55)
[2021-12-13] MEDS: Enoxaparin 40 MG/0.4 ML SYR SUBCUT SCH (14:51)
[2021-12-13] MEDS: Vitamin THERAPEUTIC TAB PO SCH (20:40)
[2021-12-14] MEDS: SPIRIVA Respimat (tiotropium) 2.5 mcg/inh Inhaler INH SCH (07:48)
[2021-12-14 08:57] VITALS: BP 134/88
[2021-12-14] MEDS: Aspirin EC 81 mg TAB.EC (enteric coated) PO SCH (10:18)
[2021-12-14] MEDS: Nystatin SUSPENSION 100,000 UNITS/ML UDC PO SCH ×4 (10:18→21:23)
[2021-12-14] MEDS: Magnesium Hydroxide LIQ 30 ML UDC PO SCH ×2 (10:19→21:23)
[2021-12-14] MEDS: Polyethylene Glycol 3350 17 GM PACKET PO SCH (13:14)
[2021-12-14] MEDS: Enoxaparin 40 MG/0.4 ML SYR SUBCUT SCH (13:49)
[2021-12-14 17:57] LABS: Rapid COVID-19 Molecular Undetected (Undetected)
[2021-12-14] MEDS: Vitamin THERAPEUTIC TAB PO SCH (21:22)
[2021-12-15] MEDS: SPIRIVA Respimat (tiotropium) 2.5 mcg/inh Inhaler INH SCH (07:57)
[2021-12-15] MEDS: Aspirin EC 81 mg TAB.EC (enteric coated) PO SCH (08:21)
[2021-12-15] MEDS: Nystatin SUSPENSION 100,000 UNITS/ML UDC PO SCH (08:22)
[2021-12-15] MEDS: Magnesium Hydroxide LIQ 30 ML UDC PO SCH (08:41)
[2021-12-15] MEDS ORDERED: [UNRECOGNIZED DRUG - REMARK] IM ONE (10:00)
== END 2021-12-15 10:20 | DRG 884 ==
LOC: MED 11:29 → SUATTDRO 11:29 → UNDODISIN 12-05 17:53
PROVIDERS: ADMIT Pediatrics; ATTEND Internal Medicine